=== PATIENT | female | born 1945 | race Caucasian/White ===

== ENCOUNTER 2025-09-04 22:44 | Inpatient (IN) ==
[2025-09-04 23:31] LABS: Hematocrit (blood only) 26.7 % (37.0-47.0); Hemoglobin 8.0 g/dl (12.0-16.0); Immature Granulocytes # (auto) 0.14 K/uL (0.01-0.20); Immature Granulocytes % (auto) 0.9 %; Mean Corpuscular Hemoglobin 25.2 pg (25.0-34.0); Mean Corpuscular Volume 84.2 fL (80.0-100.0); Platelet Count 522 K/uL (130-400); RDW Standard Deviation 50.3 fL (36.4-46.3); Red Blood Count 3.17 M/uL (4.20-5.40); White Blood Count 14.76 K/ul (4.8-10.8)
[2025-09-04 23:33] LABS: iSTAT Art Bld Gas Base Excess -16.0 mmol/L (-9-1.8); iSTAT Art Bld Gas pCO2 Correct 19 mmHg (35-46); iSTAT Art Bld Gas pH Corrected 7.326 (7.35-7.45); iSTAT Arterial Blood Gas pO2 C 366
--- NOTE | 2025-09-04 23:37 | XRay Report ---
Exam(s): XR CXR 1 VIEW EXAM: XR Chest, 1 View CLINICAL HISTORY: sharon. TECHNIQUE: Frontal view of the chest. COMPARISON: No relevant prior studies available. FINDINGS: Lungs: Postsurgical changes with suture material in the right mid lung zone. Pleural space: Trace blunting of the bilateral costophrenic margins. Diffuse senescent interstitial changes noted. The pulmonary vasculature appears somewhat equalized. No definite radiographic evidence for florid CHF. There is minimal blunting of both costophrenic margins. No pneumothorax. Heart: The cardiac silhouette is within normal limits, accounting for portable technique. Mediastinum: No significant abnormality identified. The trachea is midline. Bones/joints: Intact sternal hardware. No acute osseous abnormality. IMPRESSION: Trace blunting of the bilateral costophrenic margins. Diffuse senescent interstitial changes noted. The pulmonary vasculature appears somewhat equalized. No definite radiographic evidence for florid CHF. Trace bilateral pleural effusions. Electronically signed by: Mac Quintanilla MD 09/04/25 23:36 PM
[2025-09-04] MEDS: NOREPINEPHRINE/D5W 4 MG/250 ML IV ONE (23:40)
[2025-09-04] MEDS: DEXTROSE 10% 250 ML BAG IV ONE (23:41)
[2025-09-04] MEDS: SODIUM CHLORIDE 0.9% 500 ML IV ONE (23:41)
[2025-09-04] MEDS: CALCIUM GLUCONATE 1000 MG/60 ML NSS IV ONE (23:41)
[2025-09-04] MEDS: SODIUM BICARB 8.4% INJ 50 MEQ/50 ML SYR IV ONE (23:41)
[2025-09-04] MEDS: ALBUT/IPRATROP 3MG/0.5MG NEB 3 ML VIAL ONE (23:41)
[2025-09-04] MEDS: ATROPINE SULFATE 0.1 MG/ML 10ML SYR IV ONE (23:42)
[2025-09-05] MEDS ORDERED: STAT IV/IM STA (00:06)
[2025-09-05] MEDS: DEXTROSE 10% 250 ML BAG IV STA (00:07)
[2025-09-05] MEDS: SODIUM BICARB 8.4% INJ 50 MEQ/50 ML SYR IV ONE (00:13)
[2025-09-05] MEDS: SODIUM CHLORIDE 0.9% 1,000 ML IV ONE ×2 (00:14→00:25)
[2025-09-05] MEDS: CALCIUM CHLORIDE 10% 1,000 MG in DEXTROSE 5% 50 ML IV STA (00:22)
[2025-09-05 00:23] LABS: Alanine Aminotransferase 27.0 U/L (7-52); Albumin Globulin Ratio 0.8 (0.9-2); Albumin Level 3.0 gm/dl (3.4-5.0); Alkaline Phosphatase 310.0 U/L (34-104); Anion Gap 23.0 (3-11); Bilirubin,Total 0.5 mg/dl (0.2-1.0); Blood Urea Nitrogen 75.0 mg/dl (6-23); Calcium 8.7 mg/dl (8.6-10.3); Carbon Dioxide 12.0 mmol/L (21-32); Chloride 99.0 mmol/L (98-107); Creatinine Clr Calc Pharmacy 13.3 ml/min; Globulin 3.9 gm/dl (2.5-4.0); Glucose 76.0 mg/dl (70-99(Fasting)); Magnesium 4.6 mg/dl (1.7-2.4); Potassium 6.4 mmol/L (3.5-5.1); Sodium 134.0 mmol/L (136-145); Thyroid Stimulating Hormone 5.501 uIu/ml (0.300-4.500); Total Protein 6.9 gm/dl (6.0-8.3)
[2025-09-05] MEDS: SODIUM BICARB 8.4% INJ 50 MEQ/50 ML SYR IV STA (00:24)
[2025-09-05] MEDS: PLASMA-LYTE A 1,000 ML IV ONE (00:28)
--- NOTE | 2025-09-05 00:48 | History & Physical Report ---
Date of Service September 05, 2025 Assessment & Plan (1) Shock: (2) Bradycardia: (3) Hypothermia: (4) Elevated troponin: (5) Metabolic acidosis: Plan The patient is a 80-year-old female who follows with physicians at [facility]. 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 Records have been requested through [facility], and will be addressed when they arrive. The patient herself was not able to contribute to HPI or review of systems due to acute physical and mental state. The patient presented to the emergency department with altered mentation, severe bradycardia, hypothermia, hypoglycemia, several electrolyte disturbances, metabolic acidosis, and COPD exacerbation. Her heart rate was in the 20s upon arrival, which point she was immediately externally paced and started on Levophed infusion by the ED, while waiting for laboratory evaluation to return. Blood pressure upon arrival was 70s/50s, and temperature was 31.7. Patient was placed on Nunu hugger. Correction of laboratory abnormalities left to the ICU consult team saw the filippo ent in the ED. She was transcutaneous paced with capture at 40 N/A, at a rate of 70. Laboratories revealed a bicarb of 12, potassium 6.4, gap 23, magnesium 4.6. She was given 1 L crystalloid, 1 amp of bicarb, 1 g calcium gluconate, 1 g of calcium chloride. She was given 250 mL of D10. She received an additional amp of bicarbonate 50 mill equivalents 8.4%, then started on a bicarb infusion and dextrose at 175 mL/h. She received another liter of normal saline. Patient had improvement in heart rate to the 80-90s, and systolic blood pressure up to 120. She was transferred to the ICU with further treatment to be performed there. Shock/bradycardia/CAD/AAA/AVR/hyperlipidemia/hypertension/elevated troponin- Admitting to the intensive care unit. Follow serial cardiac enzymes, cardiac rhythm monitoring and order a complete echocardiogram Patient required temporary external pacing while in the ED, along with addition of Levophed. External pacing was able to be discontinued, and patient was continued on Levophed in addition to adjustment of IV fluids, and electrolyte replacements as noted Patient will be n.p.o. until improved enough to be able to take oral medications. Further adjustments in medications per the ICU team. Serial CBC with differential, chemistry profile, magnesium level and troponin levels Pantoprazole 40 mg IV daily DuoNebs every 2 hours as needed Hyperkalemia/renal insufficiency- Continue treatment per ICU team following serial BMP and magnesium levels Hypothermia- Continue Nunu hugger per protocol History of Present Illness Chief Complaint: The patient presented to the emergency department with altered mentation, severe bradycardia, hypothermia, hypoglycemia, several electrolyte disturbances, metabolic acidosis, and COPD exacerbation. Her heart rate was in the 20s upon arrival, which point she was immediately externally paced and started on Levophed infusion by the ED, while waiting for laboratory evaluation to return. Primary Care Provider: Dong Parks MD The patient is a 80-year-old female who follows with physicians at [facility]. 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 Records have been requested through [facility], and will be addressed when they arrive. The patient herself was not able to contribute to HPI or review of systems due to acute physical and mental state. The patient presented to the emergency department with altered mentation, severe bradycardia, hypothermia, hypoglycemia, several electrolyte disturbances, metabolic acidosis, and COPD exacerbation. Her heart rate was in the 20s upon arrival, which point she was immediately externally paced and started on Levophed infusion by the ED, while waiting for laboratory evaluation to return. Blood pressure upon arrival was 70s/50s, and temperature was 31.7. Patient was placed on Nunu hugger. Correction of laboratory abnormalities left to the ICU consult team saw the patient in the ED. She was transcutaneous paced with capture at 40 N/A, at a rate of 70. Laboratories revealed a bicarb of 12, potassium 6.4, gap 23, magnesium 4.6. She was given 1 L crystalloid, 1 amp of bicarb, 1 g calcium gluconate, 1 g of calcium chloride. She was given 250 mL of D10. She received an additional amp of bicarbonate 50 mill equivalents 8.4%, then started on a bicarb infusion and dextrose at 175 mL/h. She received another liter of normal saline. Patient had improvement in heart rate to the 80-90s, and systolic blood pressure up to 120. She was transferred to the ICU with further treatment to be performed there. Allergies Allergy/AdvReac Type Severity Reaction Status Date / Time No Known Allergies Allergy Unverified 09/05/25 00:07 Home Medications Medication Instructions Recorded Confirmed Type acetaminophen 650 mg 1,300 mg PO QAM 09/05/25 09/05/25 History tablet,extended release albuterol sulfate 90 mcg/actuation 2 puff inhalation Q4H PRN 09/05/25 09/05/25 History aerosol inhaler (Ventolin HFA) Shortness Of Breath Or Wheezing amlodipine 10 mg tablet 10 mg PO DAILY 09/05/25 09/05/25 History aspirin 81 mg tablet 81 mg PO DAILY 09/05/25 09/05/25 History atorvastatin 10 mg tablet 10 mg PO DAILY 09/05/25 09/05/25 History cholecalciferol (vitamin D3) 25 25 mcg PO DAILY 09/05/25 09/05/25 History mcg (1,000 unit) tablet clonazepam 0.5 mg PO HS 09/05/25 09/05/25 History clonazepam 0.5 mg tablet 0.5 mg PO HS 09/05/25 09/05/25 History docusate sodium 100 mg capsule 100 mg PO BID 09/05/25 09/05/25 History ondansetron HCl 4 mg tablet 0.4 mg PO Q8H PRN Nausea And 09/05/25 09/05/25 History Vomiting varenicline tartrate 0.5 mg tablet 0.5 mg PO DIRECTED 09/05/25 09/05/25 History Past Med/Surg History Problem List (Updated 09/05/25 @ 04:57 by Ajay Vaughn MD) Elevated troponin Hypoglycemia Bradycardia Hypothermia Metabolic acidosis Electrolyte abnormality Shock Medical History (Updated 09/05/25 @ 04:57 by Ajay Vaughn MD) Thyroid nodule HLD (hyperlipidemia) DMII (diabetes mellitus, type 2) Lung cancer HTN (hypertension) CKD stage 3b, GFR 30-44 ml/min COPD (chronic obstructive pulmonary disease) Surgical History (Updated 09/05/25 @ 03:47 by ISABEL La) History of AAA (abdominal aortic aneurysm) repair Aortic valve replaced Social History Smoking Status: Current every day smoker Tobacco Type: Cigarettes Cigarettes Per Day: 3-4 cigarettes per day; Hx Alcohol Use: No Hx Substance Use: No Preferred Language: Dominican Communication Ability: Effective Honing Machine Set Up Operator Required: No Beliefs That Will Affect Care: None Current Living Situation: Spouse Feels Safe at Home: Yes Assistive Devices: Denture - Upper, Denture - Lower and Glasses Review of Systems Review of Systems: Review of systems and HPI provided by family. Patient unable to contribute significantly due to altered mental state upon arrival. However, as she responded to interventions, she was able to contribute as noted. Physical Exam Physical Exam: The patient is initially confused and limited response. Appears thin with protein calorie malnutrition, normocephalic and atraumatic, lying in bed and in no acute distress. HEENT--PERRL, EOMI, mucous membranes and oropharynx moderately dry. Neck--supple. No JVD. No bruits. Thyroid normal, trachea midline, no adenopath y. Heart--bradycardic. No murmurs, rubs or gallops. Lungs--diminished breath sounds, no respiratory distress, no accessory muscle use. Abdomen--normal bowel sounds and soft. Nontender Dermatologic--skin is dry Neurologic--cranial nerves II through XII grossly intact. Rheumatologic--limited exam Psychiatric--lethargic and initially confused Results & Data Results & Data Vital Signs (Past 12 Hours) Vital Signs Temp Pulse Pulse Resp BP BP Pulse Ox 09/05/25 00:37 34.0 C L 70 19 134/31 L 09/05/25 00:31 123/33 L 09/05/25 00:29 70 20 95 09/05/25 00:26 130/34 L 09/05/25 00:26 130/34 L 09/05/25 00:23 70 19 09/05/25 00:21 127/33 L 09/05/25 00:21 127/33 L 09/05/25 00:11 70 20 92/46 L 90 09/05/25 00:06 70 16 92/50 L 09/04/25 23:44 69 24 98/52 L 09/04/25 23:36 70 25 H 110/52 L 09/04/25 23:35 31.7 C L 09/04/25 23:24 70 26 H 92/50 L 09/04/25 23:18 70 09/04/25 23:15 70 24 O2 Del Method O2 Flow Rate 09/05/25 00:37 Non-rebreather 15 09/05/25 00:31 09/05/25 00:29 09/05/25 00:26 09/05/25 00:26 09/05/25 00:23 09/05/25 00:21 09/05/25 00:21 09/05/25 00:11 09/05/25 00:06 09/04/25 23:44 09/04/25 23:36 09/04/25 23:35 09/04/25 23:24 09/04/25 23:18 09/04/25 23:15 Laboratory Results Laboratory Results WBC 14.76 K/ul (4.8-10.8) H 09/04/25 23:00 RBC 3.17 M/uL (4.20-5.40) L 09/04/25 23:00 Hgb 8.0 g/dl (12.0-16.0) L 09/04/25 23:00 POC Hgb 9.5 g/dl (12.0-16.0) L 09/04/25 23:53 Hct 26.7 % (37.0-47.0) L 09/04/25 23:00 POC Hct 28 % (37-47) L 09/04/25 23:53 MCV 84.2 fL (80.0-100.0) 09/04/25 23:00 MCH 25.2 pg (25.0-34.0) 09/04/25 23:00 MCHC 30.0 g/dL (32.0-36.0) L 09/04/25 23:00 RDW Std Deviation 50.3 fL (36.4-46.3) H 09/04/25 23:00 RDW Coeff of Amara 16.9 % (11.5-14.5) H 09/04/25 23:00 Plt Count 522 K/uL (130-400) H 09/04/25 23:00 MPV 9.8 fL (9.4-12.4) 09/04/25 23:00 Immature Gran % (Auto) 0.9 % 09/04/25 23:00 Neut % (Auto) 81.8 % 09/04/25 23:00 Lymph % (Auto) 10.9 % 09/04/25 23:00 Kidder % (Auto) 6.2 % 09/04/25 23:00 Eos % (Auto) 0.1 % 09/04/25 23:00 Baso % (Auto) 0.1 % 09/04/25 23:00 Neut # (Auto) 12.07 K/uL (1.40-6.50) H 09/04/25 23:00 Lymph # (Auto) 1.61 K/uL (1.20-3.40) 09/04/25 23:00 Kidder # (Auto) 0.91 K/uL (0.11-0.59) H 09/04/25 23:00 Eos # (Auto) 0.01 K/uL (0.00-0.50) 09/04/25 23:00 Baso # (Auto) 0.02 K/uL (0.00-0.20) 09/04/25 23:00 Immature Gran # (Auto) 0.14 K/uL (0.01-0.20) 09/04/25 23:00 Absolute Nucleated RBC 0.05 K/uL (0.00-0.12) 09/04/25 23:00 Nucleated RBC % (auto) 0.3 % 09/04/25 23:00 Specimen Type Arterial 09/04/25: Sample Site L Radial 09/04/25 23:19 POC pH 7.33 (7.35-7.45) L 09/04/25 23:19 POC pCO2 19 mmHg (35-46) L 09/04/25 23:19 POC pO2 366 mmHg (80-95) H 09/04/25 23:19 POC HCO3 10 mmol/L (19-24) L 09/04/25 23:19 POC Total CO2 10 mmol/L (24-31) L 09/04/25 23:19 POC Base Excess -16.0 mmol/L (-9-1.8) L 09/04/25 23:19 ABG pH (Temp Correct) 7.326 (7.35-7.45) L 09/04/25 23:19 ABG pCO2 (Temp Corrct 19 mmHg (35-46) L 09/04/25 23:19 POC ABG pO2 at Pt Temp 366 09/04/25 23:19 POC ABG O2 Sat 100.0 % (90-95) H 09/04/25 23:19 David Test Pass 09/04/25 23:19 VBG pH 7.35 (7.36-7.41) L 09/05/25 02:19 VBG pCO2 27 mmHg (38-50) L 09/05/25 02:19 VBG pO2 39 mmHg 09/05/25 02:19 VBG HCO3 15 mmol/L 09/05/25 02:19 VBG O2 Saturation 62.4 % 09/05/25 02:19 VBG Base Excess -9.1 mEq/L 09/05/25 02:19 O2 Delivery Device NonRb Mask 09/04/25 23:19 POC FiO2 100 % 09/04/25 23:19 POC Sodium 132 mmol/L (135-144) L 09/04/25 23:53 Sodium 135 mmol/L (136-145) L 09/05/25 02:19 POC Potassium 6.4 mmol/L (3.3-5.0) H* 09/04/25 23:53 Potassium 4.9 mmol/L (3.5-5.1) D 09/05/25 02:19 POC Chloride 106 mmol/L (101-112) 09/04/25 23:53 Chloride 101 mmol/L (98-107) 09/05/25 02:19 Carbon Dioxide 16 mmol/L (21-32) L 09/05/25 02:19 POC Total CO2 14 mmol/L (24-31) L 09/04/25 23:53 Anion Gap 18 (3-11) H 09/05/25 02:19 POC Anion Gap 20.0 mmol/L (16-25) 09/04/25 23:53 POC BUN 69 mg/dl (7-18) H 09/04/25 23:53 BUN 64 mg/dl (6-23) H 09/05/25 02:19 Creatinine 2.28 mg/dl (0.6-1.2) H 09/05/25 02:19 POC Creatinine 2.5 mg/dl (0.6-1.3) H 09/04/25 23:53 Est Cr Clr Drug Dosing 14.9 ml/min 09/05/25 02:19 eGFR 21.05 09/05/25 02:19 BUN/Creatinine Ratio 28.1 (10-20) H 09/05/25 02:19 Glucose 250 mg/dl (70-99(Fasting)) H 09/05/25 02:19 POC Glucose 214 mg/dl (70-99) H 09/05/25 01:05 POC Glucose (other) 92 mg/dl (70-99) 09/04/25 23:53 Lactate 10.2 mmol/L (0.4-2.0) H* 09/05/25 02:19 Calcium 8.3 mg/dl (8.6-10.3) L 09/05/25 02:19 POC Ioniz Calcium Raymond 0.95 mmol/l (1.12-1.32) L 09/04/25 23:53 Ionized Calcium 1.05 mmol/L (1.12-1.32) L 09/05/25 04:42 Magnesium 4.6 mg/dl (1.7-2.4) H 09/04/25 23:00 Iron 24 mcg/dl (35-150) L 09/05/25 03:18 TIBC 265 mcg/dl (250-450) 09/05/25 03:18 Transferrin 189 mg/dl (200-360) L 09/05/25 03:18 Transferrin % Sat 9 % (15-50) L 09/05/25 03:18 Total Bilirubin 0.5 mg/dl (0.2-1.0) 09/04/25 23:00 AST 34 U/L (13-39) 09/04/25 23:00 ALT 27 U/L (7-52) 09/04/25 23:00 Alkaline Phosphatase 310 U/L (34-104) H 09/04/25 23:00 Troponin I High Sens 151.6 pg/ml (0-14) H* 09/04/25 23:00 Total Protein 6.9 gm/dl (6.0-8.3) 09/04/25 23:00 Albumin 3.0 gm/dl (3.4-5.0) L 09/04/25 23:00 Globulin 3.9 gm/dl (2.5-4.0) 09/04/25 23:00 Albumin/Globulin Ratio 0.8 (0.9-2) L 09/04/25 23:00 TSH 5.501 uIu/ml (0.300-4.500) H 09/04/25 23:00 Free T4 1.62 ng/dl (0.61-1.60) H 09/04/25 23:00 Random Cortisol 49.35 mcg/dl 09/04/25 23:11 Urine Color Yellow 09/05/25 01:45 Urine Appearance Cloudy (Clear) A 09/05/25 01:45 Urine pH 5.0 (4.5-7.5) 09/05/25 01:45 Ur Specific [place] 1.027 (1.000-1.030) 09/05/25 01:45 Urine Protein 1+ (Negative) H 09/05/25 01:45 Urine Glucose (UA) Negative (Negative) 09/05/25 01:45 Urine Ketones Trace (Negative) H 09/05/25 01:45 Urine Blood Negative (Negative) 09/05/25 01:45 Urine Nitrite Negative (Negative) 09/05/25 01:45 Urine Bilirubin Negative (Negative) 09/05/25 01:45 Urine Urobilinogen Negative (Negative) 09/05/25 01:45 Ur Leukocyte Esterase Negative (Negative) 09/05/25 01:45 Urine WBC (Auto) 0-5 /hpf (0-5) 09/05/25 01:45 Urine RBC (Auto) 6-10 /hpf (0-2) H 09/05/25 01:45 U Hyaline Cast (Auto) >20 /lpf (0-2) H 09/05/25 01:45 U Epithel Cells (Auto) 3-5 /hpf (0-2) H 09/05/25 01:45 Urine Bacteria (Auto) None Seen (None Seen) 09/05/25 01:45 Nasal Screen MRSA (PCR) Positive (Negative) A 09/05/25 01:30 Blood Type A Negative 09/05/25 02:19 Antibody Screen NEGATIVE 09/05/25 02:19 Impressions Chest X-Ray 09/04/25 23:00 Exam(s): XR CXR 1 VIEW EXAM: XR Chest, 1 View CLINICAL HISTORY: sharon. TECHNIQUE: Frontal view of the chest. COMPARISON: No relevant prior studies available. FINDINGS: Lungs: Postsurgical changes with suture material in the right mid lung zone. Pleural space: Trace blunting of the bilateral costophrenic margins. Diffuse senescent interstitial changes noted. The pulmonary vasculature appears somewhat equalized. No definite radiographic evidence for florid CHF. There is minimal blunting of both costophrenic margins. No pneumothorax. Heart: The cardiac silhouette is within normal limits, accounting for portable technique. Mediastinum: No significant abnormality identified. The trachea is midline. Bones/joints: Intact sternal hardware. No acute osseous abnormality. IMPRESSION: Trace blunting of the bilateral costophrenic margins. Diffuse senescent interstitial changes noted. The pulmonary vasculature appears somewhat equalized. No definite radiographic evidence for florid CHF. Trace bilateral pleural effusions. Electronically signed by: Mac Quintanilla MD 09/04/25 23:36 PM Code Status & VTE Plan Code Status Full code VTE Prophylaxis Plan VTE Prophylaxis will be ordered: Yes PG Care Time/CCT Total # of Minutes Spent Total Time Spent with Patient: Total time spent is greater than 50% in coordination of care (as documented) at patient's floor/unit and/or counseling patient: 52 minutes Coding Level of Care Code 60234 INT INP/OBS CARE 3/75MIN Diagnoses Shock R57.9 Bradycardia R00.1 Hypothermia T68.XXXA Elevated troponin R79.89 Metabolic acidosis E87.20
[2025-09-05] MEDS: SODIUM BICARBONATE 8.4% 150 MEQ in DEXTROSE 5% 1,000 ML IV SCH (00:50)
[2025-09-05] MEDS: PANTOprazole 40 MG/10 ML SYR IV ONE (00:50)
--- NOTE | 2025-09-05 01:19 | Critical Care Consultation ---
Date of Consultation September 05, 2025 Assessment & Plan (1) Shock: (2) Bradycardia: (3) Hypothermia: (4) Hypoglycemia: (5) CKD stage 3b, GFR 30-44 ml/min: (6) Electrolyte abnormality: (7) Metabolic acidosis: (8) COPD (chronic obstructive pulmonary disease): Plan Reason Critically Ill: 80 YOF presents bradycardic, hypothermic with multiple electrolyte abnormalities and AGAP metabolic acidosis. She is requiring TCP and Vasopressor support at this time. Neuro - Metabolic encephalopathy CAM ICU: NEGATIVE - Encephalopathy has improved with treatment of her acidosis and hypothermia. She is now briskly awake and conversant. No focal deficits noted - Continue with supportive care Cardiac - Shock, bradycardia, elevated HsCTNI, HX: CAD, AAA, AVR, HLD, HTN - Shock multifactorial at this time - with primary being bradycardia and hypovolemia from frequent diarrhea with loss of free water and poor oral intake - She has received 2.5L Crystalloid - continue with isotonic bicarb infusion at this time for volume as well as treatment for her metabolic acidosis and hyperkalemia - Can't exclude infective cause at this time- obtain blood cultures and UA, CXR is without any opacities concerning for infective cause - Repeat end organ biomarkers, as well as initial lactate - Lactate 10.2- follow up in 2 hours with continued resuscitation - IVC appears mildly compressible at this time- provide another 500ml of plasmalyte - Bradycardia- HR in 30s underlying- no complaints of chest pain- bedside POCUS shows good ventricular contraction with paced beats, no evidence of tamponade or effusion - Likely secondary to multiple electrolyte disturbances to include hyperkalemia, hypermag, and hypocalcemia as well as hypoglycemia - Correct these as well as her bicarb with hopes to be able to decrease her TCP need - cardiology consultation appreciated - She is not on AIDEN or ARB or BB at home so unlikely BRASH type picture - Elevated HsCTNI- likely demand in setting of shock and TCP- no complaints of chest pain or anginal equivalent- trend - once stabilized obtain ECG with pacer paused if able - ECHO in am Respiratory - No acute need- HX previous smoker, COPD, lung cancer with RML resection-squamous cell - Continue with ADAN - O2 sats 88-92% GI - Diarrhea - Dairrhea in setting of MOM intake - she is currently not tender, no blood reported in stools- she has not had any diarrhea since arrival - once stabilized- consider need for advanced imaging to eval for any ischemia or obstruction- however abdominal exam is soft and nontender without rebound, no free air noted below diaphragm on CXR - PPI RENAL/LYTES - BRITTON on CKD III B, Multiple electrolyte disturbances, AGAP metabolic acidosis compensated, - Continue to defend MAP of 65 - with vasopressor support as well as volume resuscitation - Hyperkalemia- received calcium, bicarb, and starting to make urine- correct acidosis - if remains elevated - can consider adding binding agent - HyperMag- mild at 4.6- no nuerological changes and well below toxic level- hold further replacement - HypoCalcemia- repleted with CA gluconate and CACL in ER- follow - AGAP Metabolic Acidosis- Delta AG and Delta bicarb- about equal- pure AGAP Acidosis - with ketones in urine- likely ketosis with elevated BUN- lactate is pending - No acute need - Díaz to gravity continue while on vasopressors ENDO - Hypoglycemia - Noted on arrival to [facility] required to D10 boluses- now resolved and hyperglycemic- will add insulin infusion standard to get <180mg/dl- likely to resolve when bicarb infusion is completed and as above likely component of ketos is - TSH normal HEME - Anemia, thrombocytosis, HX: Lung cancer - likely related to poor nutritional intake and CKD- will check basic anemia labs in am - no external sources of blood loss noted - no GI loss apprecaited - Thrombocytosis likely secondary to anemia - - Health screenings reportedly up to date by patient and daughter- yearly CT scans of chest and AAA, Colonoscopy ~2 years ago with bowel resection secondary to polyps, not sure if she has had EGD. ID - Can't exclude sepsis as a cause with elevated WBC, hypothermia, shock, elevated lactate, and organ dysfunction - Will place on Zosyn and Daptomycin - MRSA nares positive- no concern for pulm source, no definite soft tissue source - Blood culture x2 pending - UA negative - CXR negative LINES/IV ACCESS - PIV x3, díaz Continue use of these lines - Consent obtained as delegated to me by Dr. Kline for Jeanette and CVL if needed pending clinical course DVT PROPHYLAXIS - SCDs DISPO: ICU while requiring TCP and vasopressor support- continue with supportive care and hope to be able to wean off pacer I have personally spent 65 minutes of critical care time in the direct management of this patient. This is a life/limb threatening event. This includes time spent evaluating patient, direct bedside care, chart review, placing orders, interpretation of diagnostic studies, discussion with consultants, patient, and family members, as well as other required patient management activities. This time is exclusive of all separately billable procedures, and separate from and in addition to any other critical care service time. Thank you for allowing us to participate in the care of this patient. Please refer to my attending physician's documentation for any further recommendations. Supervising Physician Co-Signing Physician Notes I have personally evaluated and examined this patient. I agree with assessment and plan of Monico HALL. Clinical update: 9 AM patient continues to improve increasing urine output, blood pressure adequate, bradycardia on monitor. Initial tick peripheral smear negative, DNA probes pending, decreasing lactic acidosis, significant structural lung disease, history of upper respiratory tract infection symptoms approximately 2 weeks ago, will transition to empiric Levaquin which will also cover most urinary pathogens for acute renal failure,'s no oxygen requirement doubtful to represent MRSA pneumonia discontinuing other antibiotics. History of Present Illness Reason for Consultation: Shock, Bradycardia, Multiple electrolyte disturbances Requesting Physician: Ajay Vaughn MD Attending Physician: Ajay Vaughn MD History of Present Illness 80 YOF with no records for review in our system who follows at [facility]. 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 Patient was brought in via EMS from home secondary to unresponsiveness and weakness. Patient was noted to be bradycardic, hypothermic on arrival by EMS. She was given 1mg of Atropine without adequate response it appears. She arrived to the ER with HR in the teens, BP 70s/50s reported, and hypothermic to 31.7. Family reports that she has been not feeling well for the past week with weakness, but also with months of not eating much because of early satiety. She was told her magnesium was low, and started to take MOM frequently, this appears to have led to the last 2 days of large episodes of diarrhea, that reports 15 times or more per day. She has not been eating or drinking over the past 2 days either. She was initiated with TCP and captured with 40MA and rate of 70, initiated on Levophed and placed on NRB. Patient had routine labs performed to include ABG, BG, HsCTNI. Labs returned with multiple electrolyte disturbances with HOC3 12, K 6.4, Gap 23, LEGAL INVESTIGATOR 2.55, MG 4.6and iCA 0.85. She was given 1L crystalloid, 1amp HCO3 and 1GM CA gluconate and 250ml of D10 initially. ICU was consulted for continued hemodynamic monitoring and support. Patient was evaluated in the ER remains TCP with underlying rate of 30s. She was given another amp of BICARB 50meq 8.4%, and bicarb infusion in dextrose started at 175ml/hr as well as another liter of 0.9% saline given. Patient has small amount of urine in Díaz tubing and her mentation has improved with her temperature increase as well as her blood pressure increasing. Patient will be admitted to the ICU for continued resuscitation, monitoring of hemodynamics, aci d base correction, and management of electrolytes. CODE: FULL Allergies Allergy/AdvReac Type Severity Reaction Status Date / Time No Known Allergies Allergy Unverified 09/05/25 00:07 Home Medications Medication Instructions Recorded Confirmed Type acetaminophen 650 mg 1,300 mg PO QAM 09/05/25 09/05/25 History tablet,extended release albuterol sulfate 90 mcg/actuation 2 puff inhalation Q4H PRN 09/05/25 09/05/25 History aerosol inhaler (Ventolin HFA) Shortness Of Breath Or Wheezing amlodipine 10 mg tablet 10 mg PO DAILY 09/05/25 09/05/25 History aspirin 81 mg tablet 81 mg PO DAILY 09/05/25 09/05/25 History atorvastatin 10 mg tablet 10 mg PO DAILY 09/05/25 09/05/25 History cholecalciferol (vitamin D3) 25 25 mcg PO DAILY 09/05/25 09/05/25 History mcg (1,000 unit) tablet clonazepam 0.5 mg PO HS 09/05/25 09/05/25 History clonazepam 0.5 mg tablet 0.5 mg PO HS 09/05/25 09/05/25 History docusate sodium 100 mg capsule 100 mg PO BID 09/05/25 09/05/25 History ondansetron HCl 4 mg tablet 0.4 mg PO Q8H PRN Nausea And 09/05/25 09/05/25 History Vomiting varenicline tartrate 0.5 mg tablet 0.5 mg PO DIRECTED 09/05/25 09/05/25 History Patient History Medical History (Updated 09/05/25 @ 04:57 by Ajay Vaughn MD) Thyroid nodule HLD (hyperlipidemia) DMII (diabetes mellitus, type 2) Lung cancer HTN (hypertension) CKD stage 3b, GFR 30-44 ml/min COPD (chronic obstructive pulmonary disease) Surgical History (Updated 09/05/25 @ 03:47 by ISABEL La) History of AAA (abdominal aortic aneurysm) repair Aortic valve replaced Social History Smoking Status: Current every day smoker Tobacco Type: Cigarettes Cigarettes Per Day: 3-4 cigarettes per day; Hx Alcohol Use: No Hx Substance Use: No Preferred Language: Serbian Communication Ability: Effective Scoop Operator Required: No Beliefs That Will Affect Care: None Current Living Situation: Spouse Other Information That Helps Us Care for You: No Feels Safe at Home: Yes Safety Concerns: Feels Safe At This Time Assistive Devices: Denture - Upper, Denture - Lower and Glasses Review of Systems Review of Systems: as per HPI- limited information from at bedside Physical Exam Physical Exam: PHYSICAL EXAM: General: awake, alert, no apparent distress Head: Normocephalic, atraumatic ENT: PERRL, EOMI, no pharyngeal exudate, mucous membranes dry Neuro: AAO x 2, speech clear and appropriate, strength intact bilaterally 5/5, sensation intact and equal all extremities Chest: equal rise and fall of the chest, no accessory muscle use, inspiratory and expiratory wheeze throughout bilateral Cardiac: Regular rate and rhythm, telemetry reviewed- sinus sharon underlying- currently Vpaced at 70, skin cool and dry, cap refill <3 seconds, peripheral pulses +2 no JVD, no murmur, no JVD, 2+ edema to feet and ankles GI: NABS x 4 quadrants, soft, nontender to palpation, no rebound, guarding or tenderness : Spontaneously voiding, Díaz in place minimal urine Psych: Normal mood and affect Results & Data Results & Data Vital Signs (Past 12 Hours) Vital Signs Temp Pulse Pulse Resp BP BP Pulse Ox 09/05/25 00:37 34.0 C L 70 19 134/31 L 09/05/25 00:31 123/33 L 09/05/25 00:29 70 20 95 09/05/25 00:26 130/34 L 09/05/25 00:26 130/34 L 09/05/25 00:23 70 19 09/05/25 00:21 127/33 L 09/05/25 00:21 127/33 L 09/05/25 00:11 70 20 92/46 L 90 09/05/25 00:06 70 16 92/50 L 09/04/25 23:44 69 24 98/52 L 09/04/25 23:36 70 25 H 110/52 L 09/04/25 23:35 31.7 C L 09/04/25 23:24 70 26 H 92/50 L 09/04/25 23:18 70 09/04/25 23:15 70 24 O2 Del Method O2 Flow Rate 09/05/25 00:37 Non-rebreather 15 09/05/25 00:31 09/05/25 00:29 09/05/25 00:26 09/05/25 00:26 09/05/25 00:23 09/05/25 00:21 09/05/25 00:21 09/05/25 00:11 09/05/25 00:06 09/04/25 23:44 09/04/25 23:36 09/04/25 23:35 09/04/25 23:24 09/04/25 23:18 09/04/25 23:15 Laboratory Results Abnormal lab results 09/04/25 09/04/25 09/04/25 Range/Units 23:00 23:04 23:19 WBC 14.76 H (4.8-10.8) K/ul RBC 3.17 L (4.20-5.40) M/uL Hgb 8.0 L (12.0-16.0) g/dl POC Hgb 9.2 L 7.5 L (12.0-16.0) g/dl Hct 26.7 L (37.0-47.0) % POC Hct 27 L 22 L (37-47) % MCHC 30.0 L (32.0-36.0) g/dL RDW Std Deviation 50.3 H (36.4-46.3) fL RDW Coeff of Amara 16.9 H (11.5-14.5) % Plt Count 522 H (130-400) K/uL Neut # (Auto) 12.07 H (1.40-6.50) K/uL [place] # (Auto) 0.91 H (0.11-0.59) K/uL POC pH 7.33 L (7.35-7.45) POC pCO2 19 L (35-46) mmHg POC pO2 366 H (80-95) mmHg POC HCO3 10 L (19-24) mmol/L POC Base Excess -16.0 L (-9-1.8) mmol/L ABG pH (Temp Correct) 7.326 L (7.35-7.45) ABG pCO2 (Temp Corrct 19 L (35-46) mmHg POC ABG O2 Sat 100.0 H (90-95) % POC Sodium 130 L 132 L (135-144) mmol/L Sodium 134 L (136-145) mmol/L POC Potassium 6.8 H* 5.9 H (3.3-5.0) mmol/L Potassium 6.4 H* (3.5-5.1) mmol/L Carbon Dioxide 12 L (21-32) mmol/L POC Total CO2 11 L 10 L (24-31) mmol/L Anion Gap 23 H (3-11) POC BUN 74 H (7-18) mg/dl BUN 75 H (6-23) mg/dl Creatinine 2.55 H (0.6-1.2) mg/dl POC Creatinine 2.8 H (0.6-1.3) mg/dl BUN/Creatinine Ratio 29.4 H (10-20) POC Glucose (70-99) mg/dl POC Ioniz Calcium Raymond 0.85 L (1.12-1.32) mmol/l Magnesium 4.6 H (1.7-2.4) mg/dl Alkaline Phosphatase 310 H (34-104) U/L Troponin I High Sens 151.6 H* (0-14) pg/ml Albumin 3.0 L (3.4-5.0) gm/dl Albumin/Globulin Ratio 0.8 L (0.9-2) TSH 5.501 H (0.300-4.500) uIu/ml Free T4 1.62 H (0.61-1.60) ng/dl 09/04/25 09/05/25 09/05/25 Range/Units 23:53 00:25 01:05 WBC (4.8-10.8) K/ul RBC (4.20-5.40) M/uL Hgb (12.0-16.0) g/dl POC Hgb 9.5 L (12.0-16.0) g/dl Hct (37.0-47.0) % POC Hct 28 L (37-47) % MCHC (32.0-36.0) g/dL RDW Std Deviation (36.4-46.3) fL RDW Coeff of Amara (11.5-14.5) % Plt Count (130-400) K/uL Neut # (Auto) (1.40-6.50) K/uL [place] # (Auto) (0.11-0.59) K/uL POC pH (7.35-7.45) POC pCO2 (35-46) mmHg POC pO2 (80-95) mmHg POC HCO3 (19-24) mmol/L POC Base Excess (-9-1.8) mmol/L ABG pH (Temp Correct) (7.35-7.45) ABG pCO2 (Temp Corrct (35-46) mmHg POC ABG O2 Sat (90-95) % POC Sodium 132 L (135-144) mmol/L Sodium (136-145) mmol/L POC Potassium 6.4 H* (3.3-5.0) mmol/L Potassium (3.5-5.1) mmol/L Carbon Dioxide (21-32) mmol/L POC Total CO2 14 L (24-31) mmol/L Anion Gap (3-11) POC BUN 69 H (7-18) mg/dl BUN (6-23) mg/dl Creatinine (0.6-1.2) mg/dl POC Creatinine 2.5 H (0.6-1.3) mg/dl BUN/Creatinine Ratio (10-20) POC Glucose 183 H 214 H (70-99) mg/dl POC Ioniz Calcium Raymond 0.95 L (1.12-1.32) mmol/l Magnesium (1.7-2.4) mg/dl Alkaline Phosphatase (34-104) U/L Troponin I High Sens (0-14) pg/ml Albumin (3.4-5.0) gm/dl Albumin/Globulin Ratio (0.9-2) TSH (0.300-4.500) uIu/ml Free T4 (0.61-1.60) ng/dl Diagnostic Findings Chest X-Ray 09/04/25 23:00 Exam(s): XR CXR 1 VIEW EXAM: XR Chest, 1 View CLINICAL HISTORY: sharon. TECHNIQUE: Frontal view of the chest. COMPARISON: No relevant prior studies available. FINDINGS: Lungs: Postsurgical changes with suture material in the right mid lung zone. Pleural space: Trace blunting of the bilateral costophrenic margins. Diffuse senescent interstitial changes noted. The pulmonary vasculature appears somewhat equalized. No definite radiographic evidence for florid CHF. There is minimal blunting of both costophrenic margins. No pneumothorax. Heart: The cardiac silhouette is within normal limits, accounting for portable technique. Mediastinum: No significant abnormality identified. The trachea is midline. Bones/joints: Intact sternal hardware. No acute osseous abnormality. IMPRESSION: Trace blunting of the bilateral costophrenic margins. Diffuse senescent interstitial changes noted. The pulmonary vasculature appears somewhat equalized. No definite radiographic evidence for florid CHF. Trace bilateral pleural effusions. Electronically signed by: Mac Quintanilla MD 09/04/25 23:36 PM Medications Administered Home Medications acetaminophen 650 mg tablet,extended release 1,300 mg PO QAM 09/05/25 [History Confirmed 09/05/25] albuterol sulfate 90 mcg/actuation aerosol inhaler (Ventolin HFA) 2 puff inhalation Q4H PRN Shortness Of Breath Or Wheezing 09/05/25 [History Confirmed 09/05/25] amlodipine 10 mg tablet 10 mg PO DAILY 09/05/25 [History Confirmed 09/05/25] aspirin 81 mg tablet 81 mg PO DAILY 09/05/25 [History Confirmed 09/05/25] atorvastatin 10 mg tablet 10 mg PO DAILY 09/05/25 [History Confirmed 09/05/25] cholecalciferol (vitamin D3) 25 mcg (1,000 unit) tablet 25 mcg PO DAILY 09/05/25 [History Confirmed 09/05/25] clonazepam 0.5 mg PO HS 09/05/25 [History Confirmed 09/05/25] clonazepam 0.5 mg tablet 0.5 mg PO HS 09/05/25 [History Confirmed 09/05/25] docusate sodium 100 mg capsule 100 mg PO BID 09/05/25 [History Confirmed 09/05/25] ondansetron HCl 4 mg tablet 0.4 mg PO Q8H PRN Nausea And Vomiting 09/05/25 [History Confirmed 09/05/25] varenicline tartrate 0.5 mg tablet 0.5 mg PO DIRECTED 09/05/25 [History Confirmed 09/05/25] Active Medications Albuterol (Albut/Ipratrop 3mg/0.5mg Neb 3 Ml Vial) 3 ml NEB Q2H PRN; Protocol PRN Reason: dyspnea Stop: 10/05/25 00:33 Docusate Sodium (Docusate Sodium 100 Mg Cap) 100 mg PO BID KRISTAN Stop: 10/05/25 08:59 Sodium Bicarbonate 150 meq/ (Dextrose) 1,150 mls @ 175 mls/hr IV .Q6H35M KRISTAN Stop: 09/08/25 00:14 Last Admin: 09/05/25 00:50 Dose: 175 mls/hr Pantoprazole Sodium (Protonix) 40 mg in 10 mls @ 5 mls/min IV DAILY KRISTAN Stop: 10/05/25 08:59 Miscellaneous (Icu Protocol For Hyperglycemia) 1 each N/A ACHS KRISTAN Stop: 09/07/25 07:29 Non-Formulary Medication (Aspirin) 81 mg PO DAILY KRISTAN Stop: 10/05/25 08:59 Vitamin D (Cholecalciferol 25 Mcg (1000 Units) Tab) 25 mcg PO DAILY KRISTAN Stop: 10/05/25 08:59 Coding Level of Care Code 58088 CRITICAL CARE 1ST 30-74M Diagnoses Shock R57.9 Bradycardia R00.1 Hypothermia T68.XXXA Hypoglycemia E16.2 CKD stage 3b, GFR 30-44 ml/min N18.32 Electrolyte abnormality E87.8 Metabolic acidosis E87.20 COPD (chronic obstructive pulmonary disease) J44.9
[2025-09-05] MEDS: NOREPINEPHRINE/D5W 4 MG/250 ML PLCT IV SCH (01:20)
[2025-09-05 01:22] LABS: T4 Free Thyroxine 1.62 ng/dl (0.61-1.60)
[2025-09-05] MEDS ORDERED: STAT IV Infusion **Titration per Protocol STA ×2 (01:44→03:13)
[2025-09-05 02:29] LABS: Appearance Urine Cloudy (Clear); Bacteria Urine Automated None Seen (None Seen); Cast Urine Automated >20 /lpf (0-2); Glucose Urine UA Negative (Negative); WBC Urine Automated 0-5 /hpf (0-5)
[2025-09-05 02:44] LABS: Base Excess VBG -9.1 mEq/L; HCO3 VBG 15 mmol/L; Oxygen Saturation VBG 62.4 %; PCO2 VBG 27 mmHg (38-50); PO2 VBG 39 mmHg; pH VBG 7.35 (7.36-7.41)
[2025-09-05] MEDS: THIAMINE HCL 300 MG in SODIUM CHLORIDE 0.9% 50 ML IV STA (02:45)
[2025-09-05] MEDS: ACETAMINOPHEN 1,000 MG/100 ML VIAL IV PRN (03:01)
[2025-09-05 03:06] LABS: Anion Gap 18.0 (3-11); Blood Urea Nitrogen 64.0 mg/dl (6-23); Calcium 8.3 mg/dl (8.6-10.3); Carbon Dioxide 16.0 mmol/L (21-32); Chloride 101.0 mmol/L (98-107); Creatinine Clr Calc Pharmacy 14.9 ml/min; Glucose 250.0 mg/dl (70-99(Fasting)); Potassium 4.9 mmol/L (3.5-5.1); Sodium 135.0 mmol/L (136-145)
[2025-09-05] MEDS: PLASMA-LYTE A 500 ML IV ONE (03:17)
[2025-09-05 03:40] LABS: Iron 24.0 mcg/dl (35-150); Total Iron Binding Cap Calc 265.0 mcg/dl (250-450); Transferrin 189.0 mg/dl (200-360); Transferrin (FE) Percent Satur 9.0 % (15-50)
[2025-09-05] MEDS: INSULIN REGULAR 250 UNITS in SODIUM CHLORIDE 0.9% 247.5 ML IV SCH (03:51)
[2025-09-05] MEDS: PIPERACILLIN/TAZOBACTAM 4.5 GM/100 ML BAG IV STA (04:00)
[2025-09-05] MEDS: INSULIN PROTOCOL GOAL RANGE ONE (04:07)
[2025-09-05] MEDS: MODERATE STRESS LEVEL ONE (04:08)
[2025-09-05] MEDS: DAPTOmycin 350 MG in SYRINGE 0 ML IV SCH (04:25)
[2025-09-05 05:02] LABS: Hematocrit (blood only) 23.5 % (37.0-47.0); Hemoglobin 7.3 g/dl (12.0-16.0); Mean Corpuscular Hemoglobin 24.8 pg (25.0-34.0); Mean Corpuscular Volume 79.9 fL (80.0-100.0); Platelet Count 434 K/uL (130-400); RDW Standard Deviation 46.7 fL (36.4-46.3); Red Blood Count 2.94 M/uL (4.20-5.40); White Blood Count 13.02 K/ul (4.8-10.8)
[2025-09-05 05:15] LABS: Alanine Aminotransferase 51.0 U/L (7-52); Albumin Globulin Ratio 0.8 (0.9-2); Albumin Level 2.6 gm/dl (3.4-5.0); Alkaline Phosphatase 308.0 U/L (34-104); Anion Gap 14.0 (3-11); Bilirubin,Total 0.4 mg/dl (0.2-1.0); Blood Urea Nitrogen 69.0 mg/dl (6-23); Calcium 8.7 mg/dl (8.6-10.3); Carbon Dioxide 22.0 mmol/L (21-32); Chloride 98.0 mmol/L (98-107); Creatinine Clr Calc Pharmacy 14.4 ml/min; Globulin 3.1 gm/dl (2.5-4.0); Glucose 187.0 mg/dl (70-99(Fasting)); Potassium 4.8 mmol/L (3.5-5.1); Sodium 134.0 mmol/L (136-145); Total Protein 5.7 gm/dl (6.0-8.3)
[2025-09-05 05:22] LABS: Hypochromasia Present; Immature Granulocytes # (auto) 0.08 K/uL (0.01-0.20); Immature Granulocytes % (auto) 0.6 %
[2025-09-05 05:26] LABS: INR 1.5 (0.9-1.1); Prothrombin Time 15.6 Seconds (9.0-12.0)
[2025-09-05] MEDS: PLASMA-LYTE A 1,000 ML IV SCH (05:34)
--- NOTE | 2025-09-05 05:37 | Billing Data ---
Date of Service September 05, 2025 Coding Level of Care Code 09599 CRITICAL CARE
[2025-09-05 06:13] LABS: Magnesium 3.7 mg/dl (1.7-2.4)
[2025-09-05] MEDS: CALCIUM GLUCONATE 1,000 MG/60 ML BAG IV SCH (08:05)
[2025-09-05] MEDS: INSULIN ASPART PER UNIT CHARGE SC SCH ×2 (08:06→13:04)
[2025-09-05] MEDS: THIAMINE HCL 200 MG in SODIUM CHLORIDE 0.9% 50 ML IV SCH (08:07)
[2025-09-05] MEDS: PANTOprazole 40 MG/10 ML SYR IV SCH (08:07)
[2025-09-05] MEDS: CHOLECALCIFEROL 25 MCG (1000 UNITS) TAB PO SCH (08:30)
[2025-09-05] MEDS: ASPIRIN 81 MG ECTAB PO SCH (08:30)
[2025-09-05] MEDS: DOCUSATE SODIUM 100 MG CAP PO SCH (08:43)
--- NOTE | 2025-09-05 08:45 | XCELERA ---
[id number] [id number]
--- NOTE | 2025-09-05 08:46 | Cardiology Consultation ---
Date of Consultation September 05, 2025 Assessment & Plan (1) Complete heart block: (2) Junctional bradycardia: (3) Elevated troponin: (4) Tricuspid regurgitation: (5) HTN (hypertension): (6) S/P thoracic aortic aneurysm repair: Plan ASSESSMENT/PLAN: 1. Complete heart block and junctional bradycardia: Despite correction of her potassium, she remains in heart block on this morning's ECG, however her heart rate is in the 40s with normal blood pressure. If no identifiable reversible cause and no improvement, permanent pacemaker placement may be indicated. There is no urgency as she is normotensive and asymptomatic in that regard at this time. If her urgent temporary pacing is necessary, could consider temporary pacemaker, which is not necessary at this time. 2. Elevated troponin: Likely due to demand ischemia as she was quite ill on presentation. She did not present with acute coronary syndrome. Ischemic evaluation not necessary at this time. 3. Tricuspid regurgitation: At least moderate on echo. Some images suggest that perhaps the tricuspid valve does not fully coapt during systole. Can be followed in the outpatient setting. 4. Thoracic aortic aneurysm s/p repair: Details not well-known at the time of this note. Would avoid fluoroquinolones if able. Discussed with critical care team (Isra). First-degree relatives should be screened (discussed with her daughter at the bedside). 5. Hypertension: Blood pressure normotensive today but did require pressor support on presentation per records. When/if antihypertensive regimen is necessary again, would consider something other than amlodipine due to lower extremity edema, which may or may not be contributing. 6. Acute on chronic renal failure: Creatinine was 1.39 on 07/18/2025 out side labs. Per primary hospitalist/critical care service. She was felt to be hypovolemic on presentation with significant diarrhea. 7. Hyperkalemia: Resolved. Per primary hospitalist service. 8. Hypothermia: Temperature has improved. 9. Disposition: Cardiology will continue to follow. She will be signed out to Dr. Garcia of electrophysiology, who will be available after 5 PM today throughout the weekend. Patient care communicated with critical care team and Dr. Ryan of the hospitalist service. Thank you for allowing me to participate in the care of your patient. Please call for any other questions or concerns. Sincerely, Kodak Veliz M.D. History of Present Illness Reason for Consultation: "eval for pacer support" Requesting Physician: Geronimo HALL Attending Physician: Torie Ryan MD History of Present Illness Mrs. Wills is a very pleasant 80-year-old female with history significant for bioprosthetic aortic valve (2017; AVR #[id number]), thoracic aortic aneurysm s/p hemiarch repair, squamous cell lung cancer s/p right middle lobe wedge resection (no chemo/XRT), borderline diabetes, hypertension, dyslipidemia, COPD, and CKD. Her primary fishing gear mechanic is Dr. Devlin in the [facility]. She was admitted on 09/05/2025 with altered mentation, severe bradycardia, hypothermia, hypoglycemia, hyperkalemia, acute on chronic renal failure, and metabolic acidosis. Her heart rate was reportedly in the 20s and she underwent transcutaneous pacing. She was treated for hyperkalemia. She was hypotensive with initial blood pressure 70s/50s per reports and a temperature of 31.7 C. She and her daughter, who was at the bedside, also provided history. She states that for months she has had bilateral leg pain and fatigue in general. She has had dyspnea on exertion recently. She states that she has chronic diarrhea once or twice per day but apparently her on presentation reported that she had 15 episodes of diarrhea the past 2 days. She was using milk of magnesia and large quantities apparently. She recalls having a shaking episode 2 or 3 weeks ago but denies fever. Her daughter recalls that she has been diagnosed with tachycardia and believes it was atrial fibrillation but she is on no rate controlling medication and is not on anticoagulation therapy. Her daughter was able to bring up her current medications through her portal with her other providers. Her legs have been swollen and weeping at times. She has had nausea but no vomiting for the past 2 months. She denies melena, hematochezia, hematuria. She believes that she had an episode of near syncope yesterday. She recalls walking to the restroom and fell, injuring her left elbow. She believes that she struck her head but denies headache. Transcutaneous pacing has since been discontinued. She had been on pressor support in the form of norepinephrine, which has since been discontinued. Her daughter believes that her mentation is back to her baseline. Review of systems: As above. Family history: No known premature CAD. Social history: Has smoked up to 1 pack/day but currently smoking 5 cigarettes/day. She denies alcohol or drug abuse. She lives at home with her . She has 5 children. Her daughter was present at the bedside. Allergies Allergy/AdvReac Type Severity Reaction Status Date / Time No Known Allergies Allergy Unverified 09/05/25 00:07 Home Medications Medication Instructions Recorded Confirmed Type acetaminophen 650 mg 1,300 mg PO QAM 09/05/25 09/05/25 History tablet,extended release albuterol sulfate 90 mcg/actuation 2 puff inhalation Q4H PRN 09/05/25 09/05/25 History aerosol inhaler (Ventolin HFA) Shortness Of Breath Or Wheezing amlodipine 10 mg tablet 10 mg PO DAILY 09/05/25 09/05/25 History aspirin 81 mg tablet 81 mg PO DAILY 09/05/25 09/05/25 History atorvastatin 10 mg tablet 10 mg PO DAILY 09/05/25 09/05/25 History cholecalciferol (vitamin D3) 25 25 mcg PO DAILY 09/05/25 09/05/25 History mcg (1,000 unit) tablet clonazepam 0.5 mg PO HS 09/05/25 09/05/25 History clonazepam 0.5 mg tablet 0.5 mg PO HS 09/05/25 09/05/25 History docusate sodium 100 mg capsule 100 mg PO BID 09/05/25 09/05/25 History ondansetron HCl 4 mg tablet 0.4 mg PO Q8H PRN Nausea And 09/05/25 09/05/25 History Vomiting varenicline tartrate 0.5 mg tablet 0.5 mg PO DIRECTED 09/05/25 09/05/25 History Problem List (Updated 09/05/25 @ 12:19 by Asher Veliz MD) S/P thoracic aortic aneurysm repair Tricuspid regurgitation Junctional bradycardia Complete heart block Elevated troponin Hypoglycemia Bradycardia Hypothermia Metabolic acidosis Electrolyte abnormality Shock Patient History Medical History Thyroid nodule HLD (hyperlipidemia) DMII (diabetes mellitus, type 2) Lung cancer HTN (hypertension) CKD stage 3b, GFR 30-44 ml/min COPD (chronic obstructive pulmonary disease) Surgical History (Updated 09/05/25 @ 12:19 by Asher Veliz MD) History of AAA (abdominal aortic aneurysm) repair Aortic valve replaced Social History Smoking Status: Current every day smoker Tobacco Type: Cigarettes Cigarettes Per Day: 3-4 cigarettes per day; Hx Alcohol Use: No Hx Substance Use: No Preferred Language: Serbian Communication Ability: Effective Black 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 Alert. HEENT: Anicteric sclera. Neck: No JVD. No bruits. Normal carotid upstrokes bilaterally. Cardiac: Regular but bradycardic in the 40s. Normal S1-S2. No murmurs, rubs, or gallops. Pulmonary: Expiratory wheezes bilaterally. No rales. Abdomen: Soft, nontender, nondistended, with normoactive bowel sounds. No bruits noted. Extremities: 2+ radial pulses bilaterally. 2+ posterior tibialis pulses bilaterally. 2+ bilateral lower extremity edema. No cyanosis. Results & Data Vital Signs (Past 12 Hours) Vital Signs Temp Pulse Pulse Resp BP BP Pulse Ox 09/05/25 06:45 36.3 C L 90 24 122/49 L 97 09/05/25 06:30 09/05/25 06:21 36.3 C L 80 19 95 09/05/25 06:15 120/49 L 09/05/25 06:15 120/49 L 09/05/25 06:15 120/49 L 09/05/25 06:00 120/47 L 09/05/25 06:00 36.3 C L 45 L 27 H 95 09/05/25 05:54 36.3 C L 75 25 H 95 09/05/25 05:33 36.1 C L 75 25 H 95 09/05/25 05:30 122/48 L 09/05/25 05:24 36.2 C L 73 18 95 09/05/25 05:15 121/46 L 09/05/25 05:15 121/46 L 09/05/25 05:15 36.2 C L 76 20 94 09/05/25 05:06 36.1 C L 76 18 95 09/05/25 05:00 125/46 L 09/05/25 05:00 125/46 L 09/05/25 05:00 125/46 L 09/05/25 04:48 36.0 C L 77 22 94 09/05/25 04:45 36.1 C L 77 19 96 09/05/25 04:45 117/43 L 09/05/25 04:45 117/43 L 09/05/25 04:45 117/43 L 09/05/25 04:45 117/43 L 09/05/25 04:33 36.1 C L 99 H 25 H 95 09/05/25 04:30 128/44 L 09/05/25 04:30 128/44 L 09/05/25 04:15 121/42 L 09/05/25 04:14 36.1 C L 76 16 94 09/05/25 04:02 36.0 C L 69 19 96 09/05/25 04:00 119/44 L 09/05/25 04:00 119/44 L 09/05/25 04:00 119/44 L 09/05/25 03:59 36.0 C L 76 26 H 96 09/05/25 03:47 35.8 C L 70 15 98 09/05/25 03:45 119/44 L 09/05/25 03:41 35.8 C L 70 18 99 09/05/25 03:35 35.8 C L 70 16 100 09/05/25 03:30 118/38 L 09/05/25 03:30 118/38 L 09/05/25 03:26 35.8 C L 70 21 99 09/05/25 03:15 119/38 L 09/05/25 03:11 35.7 C L 70 17 100 09/05/25 03:00 117/36 L 09/05/25 02:56 35.5 C L 70 19 100 09/05/25 02:50 35.5 C L 70 25 H 100 09/05/25 02:45 125/40 L 09/05/25 02:41 35.3 C L 70 13 100 09/05/25 02:30 115/39 L 09/05/25 02:27 35.1 C L 70 22 100 09/05/25 02:15 121/34 L 09/05/25 02:14 34.9 C L 70 21 100 09/05/25 02:03 34.7 C L 70 17 100 09/05/25 02:00 09/05/25 02:00 122/30 L 09/05/25 02:00 122/30 L 09/05/25 01:56 34.6 C L 70 22 100 09/05/25 01:48 113/32 L 09/05/25 01:36 34.4 C L 70 22 09/05/25 01:36 70 19 09/05/25 01:32 124/37 L 100 09/05/25 01:25 70 09/05/25 01:15 34.4 C L 70 20 123/32 L 97 09/05/25 00:37 34.0 C L 70 19 134/31 L 09/05/25 00:31 123/33 L 09/05/25 00:29 70 20 95 09/05/25 00:26 130/34 L 09/05/25 00:26 130/34 L 09/05/25 00:23 70 19 09/05/25 00:21 127/33 L 09/05/25 00:21 127/33 L 09/05/25 00:11 70 20 92/46 L 90 09/05/25 00:06 70 16 92/50 L 09/04/25 23:44 69 24 98/52 L 09/04/25 23:36 70 25 H 110/52 L 09/04/25 23:35 31.7 C L 09/04/25 23:24 70 26 H 92/50 L 09/04/25 23:18 70 09/04/25 23:15 70 24 O2 Del Method O2 Flow Rate 09/05/25 06:45 Room Air 09/05/25 06:30 Room Air 09/05/25 06:21 Room Air 09/05/25 06:15 09/05/25 06:15 09/05/25 06:15 09/05/25 06:00 09/05/25 06:00 Room Air 09/05/25 05:54 Room Air 09/05/25 05:33 Room Air 09/05/25 05:30 09/05/25 05:24 Room Air 09/05/25 05:15 09/05/25 05:15 09/05/25 05:15 09/05/25 05:06 09/05/25 05:00 09/05/25 05:00 09/05/25 05:00 09/05/25 04:48 Room Air 09/05/25 04:45 Room Air 09/05/25 04:45 09/05/25 04:45 09/05/25 04:45 09/05/25 04:45 09/05/25 04:33 Room Air 09/05/25 04:30 09/05/25 04:30 09/05/25 04:15 09/05/25 04:14 Room Air 09/05/25 04:02 Room Air 09/05/25 04:00 09/05/25 04:00 09/05/25 04:00 09/05/25 03:59 Room Air 09/05/25 03:47 Room Air 09/05/25 03:45 09/05/25 03:41 Room Air 09/05/25 03:35 Room Air, Oxymask 09/05/25 03:30 09/05/25 03:30 09/05/25 03:26 Oxymask 09/05/25 03:15 09/05/25 03:11 Oxymask 09/05/25 03:00 09/05/25 02:56 Oxymask 4 09/05/25 02:50 09/05/25 02:45 09/05/25 02:41 Oxymask 4 09/05/25 02:30 09/05/25 02:27 09/05/25 02:15 09/05/25 02:14 Oxymask 09/05/25 02:03 Oxymask 09/05/25 02:00 Non-rebreather 10 09/05/25 02:00 09/05/25 02:00 09/05/25 01:56 Aerosol Mask 09/05/25 01:48 09/05/25 01:36 09/05/25 01:36 Non-rebreather 151 09/05/25 01:32 Non-rebreather 09/05/25 01:25 09/05/25 01:15 Non-rebreather 15 09/05/25 00:37 Non-rebreather 15 09/05/25 00:31 09/05/25 00:29 09/05/25 00:26 09/05/25 00:26 09/05/25 00:23 09/05/25 00:21 09/05/25 00:21 09/05/25 00:11 09/05/25 00:06 09/04/25 23:44 09/04/25 23:36 09/04/25 23:35 09/04/25 23:24 09/04/25 23:18 09/04/25 23:15 Intake & Output 09/03/25 09/04/25 09/05/25 09/06/25 06:59 06:59 06:59 06:59 Intake Total 2356.860 / 2356.860 112 / 112 Output Total 110 / 110 Balance 2246.860 / 2246.860 112 / 112 Weight 107 lb 9.369 oz Laboratory Results Laboratory Results - last 24 hr 09/04/25 09/04/25 09/04/25 23:00 23:04 23:11 WBC 14.76 H RBC 3.17 L Hgb 8.0 L POC Hgb 9.2 L Hct 26.7 L POC Hct 27 L MCV 84.2 MCH 25.2 MCHC 30.0 L RDW Std Deviation 50.3 H RDW Coeff of Amara 16.9 H Plt Count 522 H MPV 9.8 Immature Gran % (Auto) 0.9 Neut % (Auto) 81.8 Lymph % (Auto) 10.9 Gaston % (Auto) 6.2 Eos % (Auto) 0.1 Baso % (Auto) 0.1 Neut # (Auto) 12.07 H Lymph # (Auto) 1.61 Gaston # (Auto) 0.91 H Eos # (Auto) 0.01 Baso # (Auto) 0.02 Immature Gran # (Auto) 0.14 Absolute Nucleated RBC 0.05 Nucleated RBC % (auto) 0.3 Hypochromasia PT INR Specimen Type Sample Site POC pH POC pCO2 POC pO2 POC HCO3 POC Base Excess ABG pH (Temp Correct) ABG pCO2 (Temp Corrct POC ABG pO2 at Pt Temp POC ABG O2 Sat David Test VBG pH VBG pCO2 VBG pO2 VBG HCO3 VBG O2 Saturation VBG Base Excess O2 Delivery Device POC FiO2 POC Sodium 130 L Sodium 134 L POC Potassium 6.8 H* Potassium 6.4 H* POC Chloride 108 Chloride 99 Carbon Dioxide 12 L POC Total CO2 11 L Anion Gap 23 H POC Anion Gap 18.0 POC BUN 74 H BUN 75 H Creatinine 2.55 H POC Creatinine 2.8 H Est Cr Clr Drug Dosing 13.3 eGFR 18.41 BUN/Creatinine Ratio 29.4 H Glucose 76 POC Glucose POC Glucose (other) 81 Lactate Calcium 8.7 POC Ioniz Calcium Raymond 0.85 L Ionized Calcium Phosphorus Magnesium 4.6 H Iron TIBC Transferrin Transferrin % Sat Total Bilirubin 0.5 AST 34 ALT 27 Alkaline Phosphatase 310 H Troponin I High Sens 151.6 H* Total Protein 6.9 Albumin 3.0 L Globulin 3.9 Albumin/Globulin Ratio 0.8 L TSH 5.501 H Free T4 1.62 H Random Cortisol 49.35 Urine Color Urine Appearance Urine pH Ur Specific Barry Urine Protein Urine Glucose (UA) Urine Ketones Urine Blood Urine Nitrite Urine Bilirubin Urine Urobilinogen Ur Leukocyte Esterase Urine WBC (Auto) Urine RBC (Auto) U Hyaline Cast (Auto) U Epithel Cells (Auto) Urine Bacteria (Auto) Nasal Screen MRSA (PCR) Anaplasma Smear A. phagocytophilum DNA Babesia Smear Babesia microti DNA PCR Lyme Disease Screen Ehrlichia DNA (PCR) Blood Type Blood Type Recheck Antibody Screen 09/04/25 09/04/25 09/04/25 23:19 23:41 23:53 WBC RBC Hgb POC Hgb 7.5 L 9.5 L Hct POC Hct 22 L 28 L MCV MCH MCHC RDW Std Deviation RDW Coeff of Amara Plt Count MPV Immature Gran % (Auto) Neut % (Auto) Lymph % (Auto) Gaston % (Auto) Eos % (Auto) Baso % (Auto) Neut # (Auto) Lymph # (Auto) Gaston # (Auto) Eos # (Auto) Baso # (Auto) Immature Gran # (Auto) Absolute Nucleated RBC Nucleated RBC % (auto) Hypochromasia PT INR Specimen Type Arterial Sample Site L Radial POC pH 7.33 L POC pCO2 19 L POC pO2 366 H POC HCO3 10 L POC Base Excess -16.0 L ABG pH (Temp Correct) 7.326 L ABG pCO2 (Temp Corrct 19 L POC ABG pO2 at Pt Temp 366 POC ABG O2 Sat 100.0 H David Test Pass VBG pH VBG pCO2 VBG pO2 VBG HCO3 VBG O2 Saturation VBG Base Excess O2 Delivery Device NonRb Mask POC FiO2 100 POC Sodium 132 L 132 L Sodium POC Potassium 5.9 H 6.4 H* Potassium POC Chloride 106 Chloride Carbon Dioxide POC Total CO2 10 L 14 L Anion Gap POC Anion Gap 20.0 POC BUN 69 H BUN Creatinine POC Creatinine 2.5 H Est Cr Clr Drug Dosing eGFR BUN/Creatinine Ratio Glucose POC Glucose 88 POC Glucose (other) 92 Lactate Calcium POC Ioniz Calcium Raymond 0.95 L Ionized Calcium Phosphorus Magnesium Iron TIBC Transferrin Transferrin % Sat Total Bilirubin AST ALT Alkaline Phosphatase Troponin I High Sens Total Protein Albumin Globulin Albumin/Globulin Ratio TSH Free T4 Random Cortisol Urine Color Urine Appearance Urine pH Ur Specific Barry Urine Protein Urine Glucose (UA) Urine Ketones Urine Blood Urine Nitrite Urine Bilirubin Urine Urobilinogen Ur Leukocyte Esterase Urine WBC (Auto) Urine RBC (Auto) U Hyaline Cast (Auto) U Epithel Cells (Auto) Urine Bacteria (Auto) Nasal Screen MRSA (PCR) Anaplasma Smear A. phagocytophilum DNA Babesia Smear Babesia microti DNA PCR Lyme Disease Screen Ehrlichia DNA (PCR) Blood Type Blood Type Recheck Antibody Screen 09/05/25 09/05/25 09/05/25 00:25 01:05 01:30 WBC RBC Hgb POC Hgb Hct POC Hct MCV MCH MCHC RDW Std Deviation RDW Coeff of Amara Plt Count MPV Immature Gran % (Auto) Neut % (Auto) Lymph % (Auto) Gaston % (Auto) Eos % (Auto) Baso % (Auto) Neut # (Auto) Lymph # (Auto) Gaston # (Auto) Eos # (Auto) Baso # (Auto) Immature Gran # (Auto) Absolute Nucleated RBC Nucleated RBC % (auto) Hypochromasia PT INR Specimen Type Sample Site POC pH POC pCO2 POC pO2 POC HCO3 POC Base Excess ABG pH (Temp Correct) ABG pCO2 (Temp Corrct POC ABG pO2 at Pt Temp POC ABG O2 Sat David Test VBG pH VBG pCO2 VBG pO2 VBG HCO3 VBG O2 Saturation VBG Base Excess O2 Delivery Device POC FiO2 POC Sodium Sodium POC Potassium Potassium POC Chloride Chloride Carbon Dioxide POC Total CO2 Anion Gap POC Anion Gap POC BUN BUN Creatinine POC Creatinine Est Cr Clr Drug Dosing eGFR BUN/Creatinine Ratio Glucose POC Glucose 183 H 214 H POC Glucose (other) Lactate Calcium POC Ioniz Calcium Raymond Ionized Calcium Phosphorus Magnesium Iron TIBC Transferrin Transferrin % Sat Total Bilirubin AST ALT Alkaline Phosphatase Troponin I High Sens Total Protein Albumin Globulin Albumin/Globulin Ratio TSH Free T4 Random Cortisol Urine Color Urine Appearance Urine pH Ur Specific Barry Urine Protein Urine Glucose (UA) Urine Ketones Urine Blood Urine Nitrite Urine Bilirubin Urine Urobilinogen Ur Leukocyte Esterase Urine WBC (Auto) Urine RBC (Auto) U Hyaline Cast (Auto) U Epithel Cells (Auto) Urine Bacteria (Auto) Nasal Screen MRSA (PCR) Positive A Anaplasma Smear A. phagocytophilum DNA Babesia Smear Babesia microti DNA PCR Lyme Disease Screen Ehrlichia DNA (PCR) Blood Type Blood Type Recheck Antibody Screen 09/05/25 09/05/25 09/05/25 01:45 02:19 03:18 WBC RBC Hgb POC Hgb Hct POC Hct MCV MCH MCHC RDW Std Deviation RDW Coeff of Amara Plt Count MPV Immature Gran % (Auto) Neut % (Auto) Lymph % (Auto) Gaston % (Auto) Eos % (Auto) Baso % (Auto) Neut # (Auto) Lymph # (Auto) Gaston # (Auto) Eos # (Auto) Baso # (Auto) Immature Gran # (Auto) Absolute Nucleated RBC Nucleated RBC % (auto) Hypochromasia PT INR Specimen Type Sample Site POC pH POC pCO2 POC pO2 POC HCO3 POC Base Excess ABG pH (Temp Correct) ABG pCO2 (Temp Corrct POC ABG pO2 at Pt Temp POC ABG O2 Sat David Test VBG pH 7.35 L VBG pCO2 27 L VBG pO2 39 VBG HCO3 15 VBG O2 Saturation 62.4 VBG Base Excess -9.1 O2 Delivery Device POC FiO2 POC Sodium Sodium 135 L POC Potassium Potassium 4.9 D POC Chloride Chloride 101 Carbon Dioxide 16 L POC Total CO2 Anion Gap 18 H POC Anion Gap POC BUN BUN 64 H Creatinine 2.28 H POC Creatinine Est Cr Clr Drug Dosing 14.9 eGFR 21.05 BUN/Creatinine Ratio 28.1 H Glucose 250 H POC Glucose POC Glucose (other) Lactate 10.2 H* Calcium 8.3 L POC Ioniz Calcium Raymond Ionized Calcium Phosphorus Magnesium 3.7 H Iron 24 L TIBC 265 Transferrin 189 L Transferrin % Sat 9 L Total Bilirubin AST ALT Alkaline Phosphatase Troponin I High Sens Total Protein Albumin Globulin Albumin/Globulin Ratio TSH Free T4 Random Cortisol Urine Color Yellow Urine Appearance Cloudy A Urine pH 5.0 Ur Specific Barry 1.027 Urine Protein 1+ H Urine Glucose (UA) Negative Urine Ketones Trace H Urine Blood Negative Urine Nitrite Negative Urine Bilirubin Negative Urine Urobilinogen Negative Ur Leukocyte Esterase Negative Urine WBC (Auto) 0-5 Urine RBC (Auto) 6-10 H U Hyaline Cast (Auto) >20 H U Epithel Cells (Auto) 3-5 H Urine Bacteria (Auto) None Seen Nasal Screen MRSA (PCR) Anaplasma Smear A. phagocytophilum DNA Babesia Smear Babesia microti DNA PCR Lyme Disease Screen Ehrlichia DNA (PCR) Blood Type A Negative Blood Type Recheck Antibody Screen NEGATIVE 09/05/25 09/05/25 09/05/25 04:42 04:47 05:01 WBC 13.02 H RBC 2.94 L Hgb 7.3 L POC Hgb Hct 23.5 L POC Hct MCV 79.9 L D MCH 24.8 L MCHC 31.1 L RDW Std Deviation 46.7 H RDW Coeff of Amara 16.7 H Plt Count 434 H MPV 9.4 Immature Gran % (Auto) 0.6 Neut % (Auto) 89.2 Lymph % (Auto) 6.5 Gaston % (Auto) 3.6 Eos % (Auto) 0.0 Baso % (Auto) 0.1 Neut # (Auto) 11.62 H Lymph # (Auto) 0.84 L Gaston # (Auto) 0.47 Eos # (Auto) 0.00 Baso # (Auto) 0.01 Immature Gran # (Auto) 0.08 Absolute Nucleated RBC 0.04 Nucleated RBC % (auto) 0.3 Hypochromasia Present PT 15.6 H INR 1.5 H Specimen Type Sample Site POC pH POC pCO2 POC pO2 POC HCO3 POC Base Excess ABG pH (Temp Correct) ABG pCO2 (Temp Corrct POC ABG pO2 at Pt Temp POC ABG O2 Sat David Test VBG pH VBG pCO2 VBG pO2 VBG HCO3 VBG O2 Saturation VBG Base Excess O2 Delivery Device POC FiO2 POC Sodium Sodium 134 L POC Potassium Potassium 4.8 POC Chloride Chloride 98 Carbon Dioxide 22 POC Total CO2 Anion Gap 14 H POC Anion Gap POC BUN BUN 69 H Creatinine 2.36 H POC Creatinine Est Cr Clr Drug Dosing 14.4 eGFR 20.20 BUN/Creatinine Ratio 29.2 H Glucose 187 H POC Glucose 172 H POC Glucose (other) Lactate 6.4 H* 5.4 H* Calcium 8.7 POC Ioniz Calcium Raymond Ionized Calcium 1.05 L Phosphorus 7.4 H Magnesium Iron TIBC Transferrin Transferrin % Sat Total Bilirubin 0.4 AST 102 H ALT 51 Alkaline Phosphatase 308 H Troponin I High Sens 162.0 H* Total Protein 5.7 L Albumin 2.6 L Globulin 3.1 Albumin/Globulin Ratio 0.8 L TSH Free T4 Random Cortisol Urine Color Urine Appearance Urine pH Ur Specific Barry Urine Protein Urine Glucose (UA) Urine Ketones Urine Blood Urine Nitrite Urine Bilirubin Urine Urobilinogen Ur Leukocyte Esterase Urine WBC (Auto) Urine RBC (Auto) U Hyaline Cast (Auto) U Epithel Cells (Auto) Urine Bacteria (Auto) Nasal Screen MRSA (PCR) Anaplasma Smear A. phagocytophilum DNA Babesia Smear Babesia microti DNA PCR Lyme Disease Screen Ehrlichia DNA (PCR) Blood Type Blood Type Recheck Antibody Screen 09/05/25 09/05/25 09/05/25 05:32 06:16 06:49 WBC RBC Hgb POC Hgb Hct POC Hct MCV MCH MCHC RDW Std Deviation RDW Coeff of Amara Plt Count MPV Immature Gran % (Auto) Neut % (Auto) Lymph % (Auto) Gaston % (Auto) Eos % (Auto) Baso % (Auto) Neut # (Auto) Lymph # (Auto) Gaston # (Auto) Eos # (Auto) Baso # (Auto) Immature Gran # (Auto) Absolute Nucleated RBC Nucleated RBC % (auto) Hypochromasia PT INR Specimen Type Sample Site POC pH POC pCO2 POC pO2 POC HCO3 POC Base Excess ABG pH (Temp Correct) ABG pCO2 (Temp Corrct POC ABG pO2 at Pt Temp POC ABG O2 Sat David Test VBG pH VBG pCO2 VBG pO2 VBG HCO3 VBG O2 Saturation VBG Base Excess O2 Delivery Device POC FiO2 POC Sodium Sodium POC Potassium Potassium POC Chloride Chloride Carbon Dioxide POC Total CO2 Anion Gap POC Anion Gap POC BUN BUN Creatinine POC Creatinine Est Cr Clr Drug Dosing eGFR BUN/Creatinine Ratio Glucose POC Glucose 136 H POC Glucose (other) Lactate 3.9 H* Calcium POC Ioniz Calcium Raymond Ionized Calcium Phosphorus Magnesium Iron TIBC Transferrin Transferrin % Sat Total Bilirubin AST ALT Alkaline Phosphatase Troponin I High Sens Total Protein Albumin Globulin Albumin/Globulin Ratio TSH Free T4 Random Cortisol Urine Color Urine Appearance Urine pH Ur Specific Barry Urine Protein Urine Glucose (UA) Urine Ketones Urine Blood Urine Nitrite Urine Bilirubin Urine Urobilinogen Ur Leukocyte Esterase Urine WBC (Auto) Urine RBC (Auto) U Hyaline Cast (Auto) U Epithel Cells (Auto) Urine Bacteria (Auto) Nasal Screen MRSA (PCR) Anaplasma Smear A. phagocytophilum DNA Babesia Smear Babesia microti DNA PCR Lyme Disease Screen Ehrlichia DNA (PCR) Blood Type Blood Type Recheck A Negative Antibody Screen 09/05/25 09/05/25 07:50 08:04 WBC RBC Hgb POC Hgb Hct POC Hct MCV MCH MCHC RDW Std Deviation RDW Coeff of Amara Plt Count MPV Immature Gran % (Auto) Neut % (Auto) Lymph % (Auto) Gaston % (Auto) Eos % (Auto) Baso % (Auto) Neut # (Auto) Lymph # (Auto) Gaston # (Auto) Eos # (Auto) Baso # (Auto) Immature Gran # (Auto) Absolute Nucleated RBC Nucleated RBC % (auto) Hypochromasia PT INR Specimen Type Sample Site POC pH POC pCO2 POC pO2 POC HCO3 POC Base Excess ABG pH (Temp Correct) ABG pCO2 (Temp Corrct POC ABG pO2 at Pt Temp POC ABG O2 Sat David Test VBG pH VBG pCO2 VBG pO2 VBG HCO3 VBG O2 Saturation VBG Base Excess O2 Delivery Device POC FiO2 POC Sodium Sodium POC Potassium Potassium POC Chloride Chloride Carbon Dioxide POC Total CO2 Anion Gap POC Anion Gap POC BUN BUN Creatinine POC Creatinine Est Cr Clr Drug Dosing eGFR BUN/Creatinine Ratio Glucose POC Glucose 95 POC Glucose (other) Lactate Calcium POC Ioniz Calcium Raymond Ionized Calcium Phosphorus Magnesium Iron TIBC Transferrin Transferrin % Sat Total Bilirubin AST ALT Alkaline Phosphatase Troponin I High Sens Total Protein Albumin Globulin Albumin/Globulin Ratio TSH Free T4 Random Cortisol Urine Color Urine Appearance Urine pH Ur Specific Barry Urine Protein Urine Glucose (UA) Urine Ketones Urine Blood Urine Nitrite Urine Bilirubin Urine Urobilinogen Ur Leukocyte Esterase Urine WBC (Auto) Urine RBC (Auto) U Hyaline Cast (Auto) U Epithel Cells (Auto) Urine Bacteria (Auto) Nasal Screen MRSA (PCR) Anaplasma Smear Pending A. phagocytophilum DNA Pending Babesia Smear Pending Babesia microti DNA PCR Pending Lyme Disease Screen Pending Ehrlichia DNA (PCR) Pending Blood Type Blood Type Recheck Antibody Screen Diagnostic Findings ECHO 09/05/25: 1. Normal left ventricular size and systolic function. EF 60-65%. No regional wall motion abnormalities. No left ventricular hypertrophy. 2. Moderately dilated right ventricle with mildly reduced systolic function. 3. Severe biatrial dilation. 4. Mild mitral regurgitation. 5. At least moderate tricuspid regurgitation. 6. Moderate pulmonary hypertension. Estimated RVSP 58 mmHg. 7. No prior study available for comparison. ECGs personally reviewed: ECG 09/04/2025 at 2253: Probable sinus bradycardia with third-degree AV block and ventricular escape rhythm at 23 bpm. ECG 09/05/2025 at 6:06 AM: Sinus rhythm with third-degree AV block and junctional bradycardia at 44 bpm. ECG 09/05/2025 at 7:47 AM: Sinus rhythm with third-degree AV block and junctional bradycardia at 44 bpm. Septal infarct. Labs reviewed and notable for elevated high-sensitivity troponin (162), hyponatremia, hyperkalemia with improved potassium from 6.4 down to 4.8, abnormal renal function (above baseline), hypermagnesemia, mildly elevated TSH, mild leukocytosis, worsening anemia from baseline, elevated lactate 10.2 but has since normalized. Chest x-ray 09/04/2025: Trace bilateral pleural effusions per radiology. Chest x-ray image personally reviewed and no obvious infiltrate. History and physical report and critical care consultation report reviewed. Historical labs provided by her daughter at the bedside from 07/18/2025: Sodium 134; potassium 4.7; BUN 18; creatinine 1.39; WBC 7.5; hemoglobin 10.4; platelets 327 Outside echo report from 06/27/2023 reviewed: Normal LV systolic function. EF 65-70%. Normal RV size and systolic function. Bioprosthetic aortic valve appropriately functioning. Mild tricuspid regurgitation. Medications Administered Current Inpatient Medications Albuterol (Albut/Ipratrop 3mg/0.5mg Neb 3 Ml Vial) 3 ml NEB Q2H PRN; Protocol PRN Reason: dyspnea Stop: 10/05/25 00:33 Aspirin (Aspirin 81 Mg Ectab) 81 mg PO DAILY KRISTAN Stop: 10/05/25 08:59 Last Admin: 09/05/25 08:30 Dose: 81 mg Docusate Sodium (Docusate Sodium 100 Mg Cap) 100 mg PO BID KRISTAN Stop: 10/05/25 08:59 Last Admin: 09/05/25 08:43 Dose: Not Given Pantoprazole Sodium (Protonix) 40 mg in 10 mls @ 5 mls/min IV DAILY KRISTAN Stop: 10/05/25 08:59 Last Admin: 09/05/25 08:07 Dose: 5 mls/min Norepinephrine Bitartrate (Levophed/D5w) 4 mg in 250 mls @ 0 mls/hr IV .Q0M KRISTAN; Protocol Stop: 10/05/25 01:44 Last Titration: 09/05/25 06:45 Dose: 0 mcg/kg/min, 0 mls/hr Acetaminophen (Ofirmev) 1,000 mg in 100 mls @ 400 mls/hr IV Q8H PRN PRN Reason: Pain or Fever Stop: 09/08/25 02:16 Last Infusion: 09/05/25 03:13 Dose: Infused Thiamine HCl 200 mg/ Sodium (Chloride) 52 mls @ 210 mls/hr IV QAM [facility] Stop: 10/05/25 08:59 Last Infusion: 09/05/25 08:40 Dose: Infused Piperacillin Sod/Tazobactam Sod (Zosyn) 4.5 gm in 100 mls @ 25 mls/hr IV Q12H KRISTAN; Protocol Stop: 09/15/25 11:59 Insulin Human Regular 250 (units/ Sodium Chloride) 250 mls @ 0 mls/hr IV .Q0M KRISTAN; Protocol Stop: 10/05/25 03:14 Last Titration: 09/05/25 06:25 Dose: 0 units/hr, 0 mls/hr Daptomycin 350 mg/ Syringe 7 mls @ 3.5 mls/min IV Q48H KRISTAN; Protocol Stop: 09/07/25 04:59 Last Admin: 09/05/25 04:25 Dose: 3.5 mls/min Parenteral Electrolytes (Plasma-Lyte A Ph 7.4) 1,000 mls @ 175 mls/hr IV .Q5H43M KRISTAN Stop: 09/08/25 05:29 Last Admin: 09/05/25 05:34 Dose: 175 mls/hr Insulin Aspart (Insulin Aspart Per Unit Charge) 0 units SC ACHS [facility] Stop: 10/05/25 07:29 Last Admin: 09/05/25 08:06 Dose: Not Given Vitamin D (Cholecalciferol 25 Mcg (1000 Units) Tab) 25 mcg PO DAILY KRISTAN Stop: 10/05/25 08:59 Last Admin: 09/05/25 08:30 Dose: 25 mcg PG Care Time/CCT Total # of Minutes Spent Total Time Spent with Patient: Total time spent is greater than 50% in coordination of care (as documented) at patient's floor/unit and/or counseling patient: Coding Level of Care Code 50411 INT INP/OBS CARE 3/75MIN Diagnoses Complete heart block I44.2 Junctional bradycardia R00.1 Elevated troponin R79.89 Tricuspid regurgitation I07.1 HTN (hypertension) I10 S/P thoracic aortic aneurysm repair Z98.890; Z86.79
[2025-09-05] MEDS: ONDANSETRON INJ 2 MG/ML 2 ML VIAL IV PRN (09:40)
[2025-09-05] MEDS ORDERED: GLUCOSE 10 TAB/TUBE PO PRN (10:00)
[2025-09-05] MEDS ORDERED: GLUCAGON FOR INJ 1 MG VIAL SQ PRN (10:00)
[2025-09-05] MEDS ORDERED: GLUCOSE 40% GEL 15 GM TUBE PO PRN (10:00)
[2025-09-05] MEDS ORDERED: CARBOHYDRATES FOR HYPOGLYCEMIA PO PRN (10:00)
[2025-09-05 11:35] LABS: Anion Gap 9.0 (3-11); Blood Urea Nitrogen 67.0 mg/dl (6-23); Calcium 8.6 mg/dl (8.6-10.3); Carbon Dioxide 28.0 mmol/L (21-32); Chloride 98.0 mmol/L (98-107); Creatinine Clr Calc Pharmacy 15.4 ml/min; Glucose 89.0 mg/dl (70-99(Fasting)); Magnesium 3.9 mg/dl (1.7-2.4); Potassium 4.5 mmol/L (3.5-5.1); Sodium 135.0 mmol/L (136-145)
[2025-09-05] MEDS ORDERED: PIPERACILLIN/TAZOBACTAM 4.5 GM/100 ML BAG IV SCH (12:00)
[2025-09-05] MEDS ORDERED: ALBUT/IPRATROP 3MG/0.5MG NEB 3 ML VIAL NEB PRN (12:15)
[2025-09-05] MEDS: ALBUT/IPRATROP 3MG/0.5MG NEB 3 ML VIAL NEB PRN (12:40)
[2025-09-05] MEDS: CALCIUM CARBONATE 500 MG CHEWABLE TAB PO PRN (13:59)
--- NOTE | 2025-09-05 19:44 | History & Physical Bridge Note ---
Date of Service September 05, 2025 History & Physical Bridge Note I have examined the patient, reviewed the History & Physical and in the interval since the performance of the History & Physical I have noted the following changes of clinical significance: Patient is weaned off vasopressors, no longer on transcutaneous pacing but heart rate remains in the 40s. I discussed her care with cardiology. She is now awake and oriented and communicating. BRITTON is improving, hypothermia and hypotension improving, hyperkalemia resolved, with some ischemic hepatitis likely With severe anemia but baseline hemoglobin 10.4 apparently on previous labs from 1 month prior [employer] converted to Levaquin for antibiotic coverage-unclear source Continue current treatment with IV fluids, may need pacemaker if bradycardia does not improve Follow CBC and check labs for anemia-B12, folate, iron studies in the morning Elevated troponin as myocardial demand ischemia, echo without wall motion abnormalities but with dilated RV and moderate TR
--- NOTE | 2025-09-05 19:46 | Electrocardiogram Report ---
Test Reason : Blood Pressure : */* mmHG Vent. Rate : 23 BPM Atrial Rate : * BPM P-R Int : * ms QRS Dur : 130 ms QT Int : 640 ms P-R-T Axes : * -72 88 degrees QTcB Int : 395 ms Poor data quality, interpretation may be adversely affected Sinus bradycardia with complete heart block and ventricular escape rhythm Left axis deviation Non-specific intra-ventricular conduction block Inferior infarct , age undetermined T wave abnormality, consider anterolateral ischemia Abnormal ECG No previous ECGs available Confirmed by Asher Veliz ([id number]) on 09/05/2025 7:45:56 PM Referred By: REFERRED SELF Confirmed By: Asher Veliz
--- NOTE | 2025-09-05 19:47 | Electrocardiogram Report ---
Test Reason : Blood Pressure : */* mmHG Vent. Rate : 44 BPM Atrial Rate : * BPM P-R Int : * ms QRS Dur : 80 ms QT Int : 588 ms P-R-T Axes : * 94 98 degrees QTcB Int : 504 ms Sinus rhythm with complete heart block and Junctional bradycardia Rightward axis Septal infarct , age undetermined Abnormal ECG When compared with ECG of 04-Sep-2025 22:53, Junctional rhythm has replaced Idioventricular rhythm Vent. rate has increased by 21 bpm Confirmed by Asher Veliz ([id number]) on 09/05/2025 7:47:24 PM Referred By: REFERRED SELF Confirmed By: Asher Veliz
--- NOTE | 2025-09-05 19:47 | Emergency Department Note ---
Impression & Plan Symptomatic bradycardia, Acute hyperkalemia, Hypocalcemia admit to the ICU ED Provider Note NAME: MARY ANNE MAKI AGE: 80 SEX: Female INFORMANT: Patient ED PROVIDER(S): Britt Mulligan DO CHIEF COMPLAINT: Weakness and syncope PLAN: Disposition: admit to the ICU MEDICAL DECISION MAKING: this is an 80-year-old female patient whose had increasing weakness over the past couple of weeks according to the . She became drastically more weak today with swelling in her legs. Patient got up to go to the bathroom and collapsed in the hallway. He describes the patient as being unresponsive for 3- 4 minutes despite her eyes being open. On presentation to the emergency department, the patient does describe weakness but describes diffuse body stiffness which has been increasing over the past 48 hours. She thought this might be secondary to her magnesium level so she had eaten a significant amount of nuts and took milk of magnesia. Patient presented with heart rates between 17 and 23. We began transcutaneous pacing. Family describes that the patient would want everything done as necessary. Bxlvo-pe-psdr testing revealed significant hyperkalemia and hypocalcemia. EKG initially was a junctional bradycardia at a rate of 23-25 but then became idioventricular around 17. Patient was treated aggressively for hyperkalemia with DuoNeb, bicarb sodium bicarbonate, and D10. once her blood sugar is more elevated, she will receive IV insulin. In order to support her blood pressure, the patient was placed on IV Levophed. For the hypocalcemia, the patient originally received IV calcium gluconate and then a dose of IV calcium chloride. Care/management discussed with: continuum of care manager, critical care team, and [facility] Triage Nursing notes: [reviewed and agree with them]. Vital Signs: reviewed and remarkable for bradycardia, hypoxia, hypotension Additional History obtained from: patient's daughter and who are at the bedside. 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 At that time, she was told that she was hypercalcemic and hypomagnesemic. Prior/ Outside/ External records reviewed: I did look at outside records that the patient's had with him from [facility] Differential Diagnosis: renal failure, hyperkalemia, hypocalcemia, cardiac ischemia, cardiac dysrhythmia Diagnostics, independently interpreted by me: ECG: idioventricular rhythm at a rate of 23 Cardiac Monitoring: junctional bradycardia at a rate of 25 Imaging studies: portable chest x-ray: Trace bilateral pleural effusions as per Imbro HPI: 80 year old Female arrives for evaluation of weakness and syncope. patient's explains that she has become increasingly weak over the past 5 to 7 days. She got up to go to the bathroom and collapsed in the hallway facedown. When he got to the patient, he rolled her over and she was breathing but unresponsive. EMS found the patient in a significant bradycardic rhythm and administered IV atropine with no change. Patient's blood pressure was greater than 100 at that time. BSG was 71.. PAST MEDICAL HISTORY: See Below, PAST SURGICAL HISTORY: See Below, SOCIAL HISTORY: See Below, HOME MEDICATIONS: See list ALLERGIES: none VITALS: See Below PHYSICAL EXAMINATION: HEENT: Head - normocephalic and atraumatic. Pupils are equal, round, and reactive to light. Extraocular eye muscles are intact, and sclera are anicteric. Nose - moist nasal mucosa without discharge. Mouth - Extremely dry buccal mucosa. Oropharynx is nonerythematous and there is no tonsillar exudate or edema noted. Neck: Supple; no JVD, nuchal rigidity, cervical lymphadenopathy. Heart: extremely bradycardic rate with a regular rhythm. There is a normal S1 and S2 with no murmurs, clicks, or gallops appreciated. Lungs: Clear to auscultation bilaterally with no wheezes, rales, or rhonchi. Abdomen: Soft, completely nontender, nondistended, with good bowel sounds. There are no palpable pulsatile masses or hepatosplenomegaly. There is no guarding, rigidity, or rebound noted. Extremities: No evidence of cyanosis, clubbing, or edema. There are No palpable peripheral pulses. Skin: Pale and cool with poor turgor and no rashes. neuro: The patient is slightly lethargic but able to follow commands and answer questions. Emergency department treatment: quality assurance monitor body, IV normal saline bolus, transcutaneous pacing, DuoNeb treatment, IV calcium gluconate IV sodium bicarbonate, IV D10 x 2, IV calcium chloride, IV Levophed drip emergency department course: The patient was emergently evaluated in room B-1. A complete history and physical was performed. We could not obtain accurate pulse oximetry. The patient was on 15 L by nonrebreather mask. -second IV lock was obtained and [id number]-[id number] testing was performed. This revealed a potassium of 6.8, ionized calcium of 0.85, glucose of 81, BUN of 74 and creatinine of 2.8. Patient was anemic with a hemoglobin of 9.2. Blood pressure was found to be significantly low in the 60s systolic. She was bolused with 500 cc of normal saline solution and a Levophed drip was started. Patient's heart rate was a junctional bradycardia originally around 22-23 but dropped to 17. At that point I began to pace the patient with a transcutaneous pacer. We started at a rate of 70 and the milliamps were at 10 initially and then bumped to 20 where we had capture. Portable chest x-ray was performed. ABG was obtained and revealed a pH of 7.32, pCO2 of 18, pO2 of 366 and bicarb of 9.8. For the patient's hyperkalemia, she was given a DuoNeb treatment and 25 g of D10 IV. She was also given an amp of sodium bicarb. Patient was significantly hypocalcemic and was given a amp of IV calcium gluconate. Patient's blood pressure had only come up into the 70s with the pacing and Levophed. The milliamps were increased to 40. Patient continued to have capture and blood pressure seem to begin to elevate. Repeat i-STAT testing was performed which revealed potassium of 6.4, glucose of 92, and ionized calcium of 0.95. Patient was given another 25 g of D10 along with a amp of IV calcium chloride. I discussed the case with the critical care team along with the [facility] Hospitalist and they will evaluate for further inpatient care. they plan to place her on a sodium bicarbonate drip. I have personally spent greater than 105 minutes of critical care time in the direct management of this patient. This includes bedside care, interpretation of diagnostic studies, and testing, discussion with consultants, patient, and family members, and other required patient management activities. This 105 minutes is in excess of all separately billable procedures. Past Med/Surg History Problem List (Updated 09/05/25 @ 19:47 by Britt Mulligan DO) Hypocalcemia (Acute) Acute hyperkalemia (Acute) Symptomatic bradycardia (Acute) S/P thoracic aortic aneurysm repair Tricuspid regurgitation Junctional bradycardia Complete heart block Elevated troponin Hypoglycemia Bradycardia Hypothermia Metabolic acidosis Electrolyte abnormality Shock Medical History Thyroid nodule HLD (hyperlipidemia) DMII (diabetes mellitus, type 2) Lung cancer HTN (hypertension) CKD stage 3b, GFR 30-44 ml/min COPD (chronic obstructive pulmonary disease) Surgical History (Updated 09/05/25 @ 12:19 by Asher Veliz MD) History of AAA (abdominal aortic aneurysm) repair Aortic valve replaced Social History Smoking Status: Current every day smoker Tobacco Type: Cigarettes Cigarettes Per Day: 3-4 cigarettes per day; Hx Alcohol Use: No Hx Substance Use: No Preferred Language: Georgian Communication Ability: Effective Digital Content Coordinator Required: No Beliefs That Will Affect Care: None Current Living Situation: Spouse Other Information That Helps Us Care for You: No Feels Safe at Home: Yes Safety Concerns: Feels Safe At This Time Assistive Devices: Denture - Upper, Denture - Lower and Glasses Allergies Allergies Allergy/AdvReac Type Severity Reaction Status Date / Time No Known Allergies Allergy Unverified 09/05/25 00:07 Home Meds Home Medications Medication Instructions Recorded Confirmed acetaminophen 650 mg 1,300 mg PO QAM 09/05/25 09/05/25 tablet,extended release albuterol sulfate 90 mcg/actuation 2 puff inhalation Q4H PRN 09/05/25 09/05/25 aerosol inhaler (Ventolin HFA) Shortness Of Breath Or Wheezing amlodipine 10 mg tablet 10 mg PO DAILY 09/05/25 09/05/25 aspirin 81 mg tablet 81 mg PO DAILY 09/05/25 09/05/25 atorvastatin 10 mg tablet 10 mg PO DAILY 09/05/25 09/05/25 cholecalciferol (vitamin D3) 25 25 mcg PO DAILY 09/05/25 09/05/25 mcg (1,000 unit) tablet clonazepam 0.5 mg PO HS 09/05/25 09/05/25 clonazepam 0.5 mg tablet 0.5 mg PO HS 09/05/25 09/05/25 docusate sodium 100 mg capsule 100 mg PO BID 09/05/25 09/05/25 ondansetron HCl 4 mg tablet 0.4 mg PO Q8H PRN Nausea And 09/05/25 09/05/25 Vomiting varenicline tartrate 0.5 mg tablet 0.5 mg PO DIRECTED 09/05/25 09/05/25 Results & Data (ED) Vital Signs Vital Signs - 24 hr 09/04/25 23:15 09/04/25 23:18 09/04/25 23:24 Temperature Temperature Source Pulse Rate 70 70 70 Pulse Rate [Forehead] Pulse Rate from SpO2 Sensor 70 Pulse Rhythm [Forehead] Respiratory Rate 24 26 H Respiratory Effort / Characteristics Respiratory Depth Blood Pressure 92/50 L Blood Pressure [Right Arm] Blood Pressure Mean 64 Blood Pressure Mean [Right Arm] Blood Pressure Position [Right Arm] Pulse Oximetry Oxygen Delivery Method Oxygen Flow Rate Sepsis Recent Fever Within 48 Hours Sepsis New/Unexplained Change in Mental Status Sepsis Action Taken by Nursing 09/04/25 23:35 09/04/25 23:36 09/04/25 23:44 Temperature 31.7 C L Temperature Source Reynoso Cath ( Temp Sensing) Pulse Rate 70 69 Pulse Rate [Forehead] Pulse Rate from SpO2 Sensor 69 69 Pulse Rhythm [Forehead] Respiratory Rate 25 H 24 Respiratory Effort / Characteristics Respiratory Depth Blood Pressure 110/52 L 98/52 L Blood Pressure [Right Arm] Blood Pressure Mean 71 67 Blood Pressure Mean [Right Arm] Blood Pressure Position [Right Arm] Pulse Oximetry Oxygen Delivery Method Oxygen Flow Rate Sepsis Recent Fever Within 48 Hours No Sepsis New/Unexplained Change in Mental Status N/A Sepsis Action Taken by Nursing No Action Required 09/05/25 00:06 09/05/25 00:11 09/05/25 00:21 Temperature Temperature Source Pulse Rate 70 70 Pulse Rate [Forehead] Pulse Rate from SpO2 Sensor Pulse Rhythm [Forehead] Respiratory Rate 16 20 Respiratory Effort / Characteristics Respiratory Depth Blood Pressure 92/50 L 92/46 L 127/33 L Blood Pressure [Right Arm] Blood Pressure Mean 64 61 53 Blood Pressure Mean [Right Arm] Blood Pressure Position [Right Arm] Pulse Oximetry 90 Oxygen Delivery Method Oxygen Flow Rate Sepsis Recent Fever Within 48 Hours Sepsis New/Unexplained Change in Mental Status Sepsis Action Taken by Nursing 09/05/25 00:21 09/05/25 00:23 09/05/25 00:26 Temperature Temperature Source Pulse Rate 70 Pulse Rate [Forehead] Pulse Rate from SpO2 Sensor Pulse Rhythm [Forehead] Respiratory Rate 19 Respiratory Effort / Characteristics Respiratory Depth Blood Pressure 127/33 L 130/34 L Blood Pressure [Right Arm] Blood Pressure Mean 53 63 Blood Pressure Mean [Right Arm] Blood Pressure Position [Right Arm] Pulse Oximetry Oxygen Delivery Method Oxygen Flow Rate Sepsis Recent Fever Within 48 Hours Sepsis New/Unexplained Change in Mental Status Sepsis Action Taken by Nursing 09/05/25 00:26 09/05/25 00:29 09/05/25 00:31 Temperature Temperature Source Pulse Rate 70 Pulse Rate [Forehead] Pulse Rate from SpO2 Sensor 66 Pulse Rhythm [Forehead] Respiratory Rate 20 Respiratory Effort / Characteristics Respiratory Depth Blood Pressure 130/34 L 123/33 L Blood Pressure [Right Arm] Blood Pressure Mean 63 83 Blood Pressure Mean [Right Arm] Blood Pressure Position [Right Arm] Pulse Oximetry 95 Oxygen Delivery Method Oxygen Flow Rate Sepsis Recent Fever Within 48 Hours Sepsis New/Unexplained Change in Mental Status Sepsis Action Taken by Nursing 09/05/25 00:37 Temperature 34.0 C L Temperature Source Reynoso Cath ( Temp Sensing) Pulse Rate Pulse Rate [Forehead] 70 Pulse Rate from SpO2 Sensor Pulse Rhythm [Forehead] Regular Respiratory Rate 19 Respiratory Effort / Characteristics Non-Labored Spontaneous Respiratory Depth Normal Blood Pressure Blood Pressure [Right Arm] 134/31 L Blood Pressure Mean Blood Pressure Mean [Right Arm] 65 Blood Pressure Position [Right Arm] Lying Pulse Oximetry Oxygen Delivery Method Non-rebreather Oxygen Flow Rate 15 Sepsis Recent Fever Within 48 Hours Sepsis New/Unexplained Change in Mental Status Sepsis Action Taken by Nursing Laboratory Data 09/05/25 04:42 09/05/25 10:57 Lab Results 09/04/25 09/04/25 09/04/25 Range/Units 23:00 23:04 23:11 WBC 14.76 H (4.8-10.8) K/ul RBC 3.17 L (4.20-5.40) M/uL Hgb 8.0 L (12.0-16.0) g/dl POC Hgb 9.2 L (12.0-16.0) g/dl Hct 26.7 L (37.0-47.0) % POC Hct 27 L (37-47) % MCV 84.2 (80.0-100.0) fL MCH 25.2 (25.0-34.0) pg MCHC 30.0 L (32.0-36.0) g/dL RDW Std Deviation 50.3 H (36.4-46.3) fL RDW Coeff of Amara 16.9 H (11.5-14.5) % Plt Count 522 H (130-400) K/uL MPV 9.8 (9.4-12.4) fL Immature Gran % (Auto) 0.9 % Neut % (Auto) 81.8 % Lymph % (Auto) 10.9 % Trinity % (Auto) 6.2 % Eos % (Auto) 0.1 % Baso % (Auto) 0.1 % Neut # (Auto) 12.07 H (1.40-6.50) K/uL Lymph # (Auto) 1.61 (1.20-3.40) K/uL Trinity # (Auto) 0.91 H (0.11-0.59) K/uL Eos # (Auto) 0.01 (0.00-0.50) K/uL Baso # (Auto) 0.02 (0.00-0.20) K/uL Immature Gran # (Auto) 0.14 (0.01-0.20) K/uL Absolute Nucleated RBC 0.05 (0.00-0.12) K/uL Nucleated RBC % (auto) 0.3 % Specimen Type Sample Site POC pH (7.35-7.45) POC pCO2 (35-46) mmHg POC pO2 (80-95) mmHg POC HCO3 (19-24) mmol/L POC Base Excess (-9-1.8) mmol/L ABG pH (Temp Correct) (7.35-7.45) ABG pCO2 (Temp Corrct (35-46) mmHg POC ABG pO2 at Pt Temp POC ABG O2 Sat (90-95) % Davdi Test O2 Delivery Device POC FiO2 % POC Sodium 130 L (135-144) mmol/L Sodium 134 L (136-145) mmol/L POC Potassium 6.8 H* (3.3-5.0) mmol/L Potassium 6.4 H* (3.5-5.1) mmol/L POC Chloride 108 (101-112) mmol/L Chloride 99 (98-107) mmol/L Carbon Dioxide 12 L (21-32) mmol/L POC Total CO2 11 L (24-31) mmol/L Anion Gap 23 H (3-11) POC Anion Gap 18.0 (16-25) mmol/L POC BUN 74 H (7-18) mg/dl BUN 75 H (6-23) mg/dl Creatinine 2.55 H (0.6-1.2) mg/dl POC Creatinine 2.8 H (0.6-1.3) mg/dl Est Cr Clr Drug Dosing 13.3 ml/min eGFR 18.41 BUN/Creatinine Ratio 29.4 H (10-20) Glucose 76 (70-99(Fasting)) mg/dl POC Glucose (70-99) mg/dl POC Glucose (other) 81 (70-99) mg/dl Calcium 8.7 (8.6-10.3) mg/dl POC Ioniz Calcium Raymond 0.85 L (1.12-1.32) mmol/l Magnesium 4.6 H (1.7-2.4) mg/dl Total Bilirubin 0.5 (0.2-1.0) mg/dl AST 34 (13-39) U/L ALT 27 (7-52) U/L Alkaline Phosphatase 310 H (34-104) U/L Troponin I High Sens 151.6 H* (0-14) pg/ml Total Protein 6.9 (6.0-8.3) gm/dl Albumin 3.0 L (3.4-5.0) gm/dl Globulin 3.9 (2.5-4.0) gm/dl Albumin/Globulin Ratio 0.8 L (0.9-2) TSH 5.501 H (0.300-4.500) uIu/ml Free T4 1.62 H (0.61-1.60) ng/dl Random Cortisol 49.35 mcg/dl 09/04/25 09/04/25 09/04/25 Range/Units 23:19 23:41 23:53 WBC (4.8-10.8) K/ul RBC (4.20-5.40) M/uL Hgb (12.0-16.0) g/dl POC Hgb 7.5 L 9.5 L (12.0-16.0) g/dl Hct (37.0-47.0) % POC Hct 22 L 28 L (37-47) % MCV (80.0-100.0) fL MCH (25.0-34.0) pg MCHC (32.0-36.0) g/dL RDW Std Deviation (36.4-46.3) fL RDW Coeff of Amara (11.5-14.5) % Plt Count (130-400) K/uL MPV (9.4-12.4) fL Immature Gran % (Auto) % Neut % (Auto) % Lymph % (Auto) % Trinity % (Auto) % Eos % (Auto) % Baso % (Auto) % Neut # (Auto) (1.40-6.50) K/uL Lymph # (Auto) (1.20-3.40) K/uL Trinity # (Auto) (0.11-0.59) K/uL Eos # (Auto) (0.00-0.50) K/uL Baso # (Auto) (0.00-0.20) K/uL Immature Gran # (Auto) (0.01-0.20) K/uL Absolute Nucleated RBC (0.00-0.12) K/uL Nucleated RBC % (auto) % Specimen Type Arterial Sample Site L Radial POC pH 7.33 L (7.35-7.45) POC pCO2 19 L (35-46) mmHg POC pO2 366 H (80-95) mmHg POC HCO3 10 L (19-24) mmol/L POC Base Excess -16.0 L (-9-1.8) mmol/L ABG pH (Temp Correct) 7.326 L (7.35-7.45) ABG pCO2 (Temp Corrct 19 L (35-46) mmHg POC ABG pO2 at Pt Temp 366 POC ABG O2 Sat 100.0 H (90-95) % David Test Pass O2 Delivery Device NonRb Mask POC FiO2 100 % POC Sodium 132 L 132 L (135-144) mmol/L Sodium (136-145) mmol/L POC Potassium 5.9 H 6.4 H* (3.3-5.0) mmol/L Potassium (3.5-5.1) mmol/L POC Chloride 106 (101-112) mmol/L Chloride (98-107) mmol/L Carbon Dioxide (21-32) mmol/L POC Total CO2 10 L 14 L (24-31) mmol/L Anion Gap (3-11) POC Anion Gap 20.0 (16-25) mmol/L POC BUN 69 H (7-18) mg/dl BUN (6-23) mg/dl Creatinine (0.6-1.2) mg/dl POC Creatinine 2.5 H (0.6-1.3) mg/dl Est Cr Clr Drug Dosing ml/min eGFR BUN/Creatinine Ratio (10-20) Glucose (70-99(Fasting)) mg/dl POC Glucose 88 (70-99) mg/dl POC Glucose (other) 92 (70-99) mg/dl Calcium (8.6-10.3) mg/dl POC Ioniz Calcium Raymond 0.95 L (1.12-1.32) mmol/l Magnesium (1.7-2.4) mg/dl Total Bilirubin (0.2-1.0) mg/dl AST (13-39) U/L ALT (7-52) U/L Alkaline Phosphatase (34-104) U/L Troponin I High Sens (0-14) pg/ml Total Protein (6.0-8.3) gm/dl Albumin (3.4-5.0) gm/dl Globulin (2.5-4.0) gm/dl Albumin/Globulin Ratio (0.9-2) TSH (0.300-4.500) uIu/ml Free T4 (0.61-1.60) ng/dl Random Cortisol mcg/dl 09/05/25 Range/Units 00:25 WBC (4.8-10.8) K/ul RBC (4.20-5.40) M/uL Hgb (12.0-16.0) g/dl POC Hgb (12.0-16.0) g/dl Hct (37.0-47.0) % POC Hct (37-47) % MCV (80.0-100.0) fL MCH (25.0-34.0) pg MCHC (32.0-36.0) g/dL RDW Std Deviation (36.4-46.3) fL RDW Coeff of Amara (11.5-14.5) % Plt Count (130-400) K/uL MPV (9.4-12.4) fL Immature Gran % (Auto) % Neut % (Auto) % Lymph % (Auto) % Trinity % (Auto) % Eos % (Auto) % Baso % (Auto) % Neut # (Auto) (1.40-6.50) K/uL Lymph # (Auto) (1.20-3.40) K/uL Trinity # (Auto) (0.11-0.59) K/uL Eos # (Auto) (0.00-0.50) K/uL Baso # (Auto) (0.00-0.20) K/uL Immature Gran # (Auto) (0.01-0.20) K/uL Absolute Nucleated RBC (0.00-0.12) K/uL Nucleated RBC % (auto) % Specimen Type Sample Site POC pH (7.35-7.45) POC pCO2 (35-46) mmHg POC pO2 (80-95) mmHg POC HCO3 (19-24) mmol/L POC Base Excess (-9-1.8) mmol/L ABG pH (Temp Correct) (7.35-7.45) ABG pCO2 (Temp Corrct (35-46) mmHg POC ABG pO2 at Pt Temp POC ABG O2 Sat (90-95) % David Test O2 Delivery Device POC FiO2 % POC Sodium (135-144) mmol/L Sodium (136-145) mmol/L POC Potassium (3.3-5.0) mmol/L Potassium (3.5-5.1) mmol/L POC Chloride (101-112) mmol/L Chloride (98-107) mmol/L Carbon Dioxide (21-32) mmol/L POC Total CO2 (24-31) mmol/L Anion Gap (3-11) POC Anion Gap (16-25) mmol/L POC BUN (7-18) mg/dl BUN (6-23) mg/dl Creatinine (0.6-1.2) mg/dl POC Creatinine (0.6-1.3) mg/dl Est Cr Clr Drug Dosing ml/min eGFR BUN/Creatinine Ratio (10-20) Glucose (70-99(Fasting)) mg/dl POC Glucose 183 H (70-99) mg/dl POC Glucose (other) (70-99) mg/dl Calcium (8.6-10.3) mg/dl POC Ioniz Calcium Raymond (1.12-1.32) mmol/l Magnesium (1.7-2.4) mg/dl Total Bilirubin (0.2-1.0) mg/dl AST (13-39) U/L ALT (7-52) U/L Alkaline Phosphatase (34-104) U/L Troponin I High Sens (0-14) pg/ml Total Protein (6.0-8.3) gm/dl Albumin (3.4-5.0) gm/dl Globulin (2.5-4.0) gm/dl Albumin/Globulin Ratio (0.9-2) TSH (0.300-4.500) uIu/ml Free T4 (0.61-1.60) ng/dl Random Cortisol mcg/dl Administered Medications Albuterol (Albut/Ipratrop 3mg/0.5mg Neb 3 Ml Vial) 3 ml NEB Q2H PRN; Protocol PRN Reason: dyspnea Stop: 10/05/25 00:33 Last Admin: 09/05/25 12:40 Dose: 3 ml Documented By: JORDEN Aspirin (Aspirin 81 Mg Ectab) 81 mg PO DAILY KRISTAN Stop: 10/05/25 08:59 Last Admin: 09/05/25 08:30 Dose: 81 mg Documented By: LINDA Calcium Carbonate (Calcium Carbonate 500 Mg Chewable Tab) 1,500 mg PO BID PRN PRN Reason: Indigestion Stop: 10/05/25 13:52 Last Admin: 09/05/25 13:59 Dose: 1,500 mg Documented By: LINDA Docusate Sodium (Docusate Sodium 100 Mg Cap) 100 mg PO BID KRISTAN Stop: 10/05/25 08:59 Last Admin: 09/05/25 08:43 Dose: Not Given Documented By: LINDA Pantoprazole Sodium (Protonix) 40 mg in 10 mls @ 5 mls/min IV DAILY KRISTAN Stop: 10/05/25 08:59 Last Admin: 09/05/25 08:07 Dose: 5 mls/min Documented By: LINDA Acetaminophen (Ofirmev) 1,000 mg in 100 mls @ 400 mls/hr IV Q8H PRN PRN Reason: Pain or Fever Stop: 09/08/25 02:16 Last Infusion: 09/05/25 03:13 Dose: Infused Documented By: [id number] Admin: 09/05/25 03:01 Dose: 400 mls/hr Documented By: [id number] Thiamine HCl 200 mg/ Sodium (Chloride) 52 mls @ 210 mls/hr IV QAM [facility] Stop: 10/05/25 08:59 Last Infusion: 09/05/25 08:40 Dose: Infused Documented By: Admin: 09/05/25 08:07 Dose: 210 mls/hr Documented By: LINDA Parenteral Electrolytes (Plasma-Lyte A Ph 7.4) 1,000 mls @ 175 mls/hr IV .Q5H43M [facility] Stop: 09/08/25 05:29 Last Admin: 09/05/25 17:09 Dose: 175 mls/hr Documented By: Infusion: 09/05/25 17:08 Dose: Infused Documented By: Admin: 09/05/25 11:25 Dose: 175 mls/hr Documented By: Infusion: 09/05/25 11:17 Dose: Infused Documented By: Admin: 09/05/25 05:34 Dose: 175 mls/hr Documented By: [id number] Insulin Aspart (Insulin Aspart Per Unit Charge) 0 units SC Q6 [facility] Stop: 10/05/25 11:59 Last Admin: 09/05/25 18:24 Dose: Not Given Documented By: Admin: 09/05/25 13:04 Dose: Not Given Documented By: LINDA Ondansetron HCl (Ondansetron Inj 2 Mg/Ml 2 Ml Vial) 4 mg IV Q6H PRN PRN Reason: Nausea And Vomiting Stop: 10/05/25 09:34 Last Admin: 09/05/25 09:40 Dose: 4 mg Documented By: LINDA Vitamin D (Cholecalciferol 25 Mcg (1000 Units) Tab) 25 mcg PO DAILY [facility] Stop: 10/05/25 08:59 Last Admin: 09/05/25 08:30 Dose: 25 mcg Documented By: LINDA Discontinued Medications Albuterol (Albut/Ipratrop 3mg/0.5mg Neb 3 Ml Vial) Confirm Administered Dose 3 ml .ROUTE .STK-MED ONE Stop: 09/04/25 23:23 Last Admin: 09/04/25 23:41 Dose: 3 ml Documented By: TALYAW Atropine Sulfate (Atropine Sulfate 0.1 Mg/Ml 10ml Syr) Confirm Administered Dose 1 mg IV .STK-MED ONE Stop: 09/04/25 22:53 Last Admin: 09/04/25 23:42 Dose: Not Given Documented By: ASW Calcium Gluconate (Calcium Gluconate 1000 Mg/60 Ml Nss) Confirm Administered Dose 1,000 mg IV .STK-MED ONE Stop: 09/04/25 23:23 Last Admin: 09/04/25 23:41 Dose: 1,000 mg Documented By: ASW Dextrose (Dextrose 10% 250 Ml Bag) Confirm Administered Dose 250 ml IV .STK-MED ONE Stop: 09/04/25 23:25 Last Admin: 09/04/25 23:41 Dose: 250 ml Documented By: ASW Dextrose (Dextrose 10% 250 Ml Bag) 250 ml IV NOW STA Stop: 09/04/25 23:57 Last Admin: 09/05/25 00:07 Dose: 250 ml Documented By: PAG Sodium Chloride (Nss) 500 mls @ 999 mls/hr IV .Q31M ONE Stop: 09/04/25 23:31 Last Infusion: 09/05/25 00:35 Dose: Infused Documented By: Admin: 09/04/25 23:41 Dose: 999 mls/hr Documented By: ASW Sodium Chloride (Nss) 1,000 mls @ 999 mls/hr IV .Q1H1M ONE Stop: 09/05/25 00:56 Last Infusion: 09/05/25 00:25 Dose: Infused Documented By: Admin: 09/05/25 00:14 Dose: 999 mls/hr Documented By: PAG Calcium Chloride 1,000 mg/ (Dextrose) 60 mls @ 240 mls/hr IV NOW STA Stop: 09/05/25 00:10 Last Infusion: 09/05/25 00:39 Dose: Infused Documented By: Admin: 09/05/25 00:22 Dose: 240 mls/hr Documented By: PAG Sodium Bicarbonate 150 meq/ (Dextrose) 1,150 mls @ 175 mls/hr IV .Q6H35M KRISTAN Stop: 09/08/25 00:14 Last Infusion: 09/05/25 05:34 Dose: Infused Documented By: [id number] Admin: 09/05/25 00:50 Dose: 175 mls/hr Documented By: PAG Parenteral Electrolytes (Plasma-Lyte A Ph 7.4) 1,000 mls @ 999 mls/hr IV .Q1H1M ONE Stop: 09/05/25 01:07 Last Admin: 09/05/25 00:28 Dose: Not Given Documented By: PAG Sodium Chloride (Nss) 1,000 mls @ 999 mls/hr IV .Q1H1M ONE Stop: 09/05/25 01:08 Last Admin: 09/05/25 00:35 Dose: Not Given Documented By: BREANNE Pantoprazole Sodium (Protonix) 40 mg in 10 mls @ 5 mls/min IV NOW ONE Stop: 09/05/25 00:35 Last Admin: 09/05/25 00:50 Dose: 5 mls/min Documented By: BREANNE Norepinephrine Bitartrate (Levophed/D5w) 4 mg in 250 mls @ 0 mls/hr IV .Q0M KRISTAN; Protocol Stop: 10/05/25 01:44 Last Titration: 09/05/25 09:41 Dose: Infused Documented By: LINDA Co-signed By: AMS Titration: 09/05/25 06:45 Dose: 0 mcg/kg/min, 0 mls/hr Documented By: [id number] Co-signed By: LLP Titration: 09/05/25 06:19 Dose: 0.01 mcg/kg/min, 1.8 mls/hr Documented By: [id number] Co-signed By: LLP Titration: 09/05/25 01:45 Dose: 0.03 mcg/kg/min, 5.5 mls/hr Documented By: [id number] Co-signed By: LLP Admin: 09/05/25 01:20 Dose: 0.05 mcg/kg/min, 9.2 mls/hr Documented By: [id number] Co-signed By: CATHERINE Thiamine HCl 300 mg/ Sodium (Chloride) 53 mls @ 210 mls/hr IV NOW STA Stop: 09/05/25 02:32 Last Infusion: 09/05/25 02:59 Dose: Infused Documented By: [id number] Admin: 09/05/25 02:45 Dose: 210 mls/hr Documented By: [id number] Parenteral Electrolytes (Plasma-Lyte A Ph 7.4) 500 mls @ 999 mls/hr IV .Q31M ONE Stop: 09/05/25 03:41 Last Infusion: 09/05/25 03:49 Dose: Infused Documented By: [id number] Admin: 09/05/25 03:17 Dose: 999 mls/hr Documented By: [id number] Insulin Human Regular 250 (units/ Sodium Chloride) 250 mls @ 0 mls/hr IV .Q0M KRISTAN; Protocol Stop: 10/05/25 03:14 Last Titration: 09/05/25 09:41 Dose: Infused Documented By: LINDA Co-signed By: AMS Titration: 09/05/25 06:25 Dose: 0 units/hr, 0 mls/hr Documented By: [id number] Co-signed By: SKRichard Titration: 09/05/25 06:00 Dose: 0.6 units/hr, 0.6 mls/hr Documented By: [id number] Co-signed By: LLP Titration: 09/05/25 05:30 Dose: 0.7 units/hr, 0.7 mls/hr Documented By: [id number] Co-signed By: LLP Titration: 09/05/25 05:00 Dose: 0 units/hr, 0 mls/hr Documented By: [id number] Co-signed By: CRISTY Admin: 09/05/25 03:51 Dose: 1.2 units/hr, 1.2 mls/hr Documented By: [id number] Co-signed By: SKRichard Piperacillin Sod/Tazobactam Sod (Zosyn) 4.5 gm in 100 mls @ 200 mls/hr IV NOW STA; Protocol Stop: 09/05/25 03:59 Last Infusion: 09/05/25 04:57 Dose: Infused Documented By: [id number] Admin: 09/05/25 04:00 Dose: 200 mls/hr Documented By: [id number] Daptomycin 350 mg/ Syringe 7 mls @ 3.5 mls/min IV Q48H KRISTAN; Protocol Stop: 09/07/25 04:59 Last Admin: 09/05/25 04:25 Dose: 3.5 mls/min Documented By: [id number] Calcium Gluconate () 1,000 mg in 60 mls @ 240 mls/hr IV Q15M KRISTAN Stop: 09/05/25 08:14 Last Infusion: 09/05/25 09:05 Dose: Infused Documented By: Admin: 09/05/25 08:29 Dose: 240 mls/hr Documented By: Infusion: 09/05/25 08:20 Dose: Infused Documented By: Admin: 09/05/25 08:05 Dose: 240 mls/hr Documented By: LINDA Levofloxacin/Dextrose (Levaquin/D5w) 750 mg in 150 mls @ 100 mls/hr IV NOW ONE Stop: 09/05/25 11:29 Last Infusion: 09/05/25 11:25 Dose: Infused Documented By: Admin: 09/05/25 09:51 Dose: 100 mls/hr Documented By: LINDA Insulin Aspart (Insulin Aspart Per Unit Charge) 0 units SC ACHS KRISTAN Stop: 10/05/25 07:29 Last Admin: 09/05/25 08:06 Dose: Not Given Documented By: LINDA Miscellaneous (Moderate Stress Level ) 1 each N/A ONE ONE Stop: 09/05/25 03:14 Last Admin: 09/05/25 04:08 Dose: 1 each Documented By: [id number] Miscellaneous (Insulin Protocol Goal Range ) 1 each N/A ONE ONE Stop: 09/05/25 03:14 Last Admin: 09/05/25 04:07 Dose: 1 each Documented By: [id number] Norepinephrine Bitartrate (Norepinephrine/D5w 4 Mg/250 Ml) Confirm Administered Dose 4 mg IV .STK-MED ONE Stop: 09/04/25 23:12 Last Admin: 09/04/25 23:40 Dose: 4 mg Documented By: BALA Co-signed By: BREANNE Sodium Bicarbonate (Sodium Bicarb 8.4% Inj 50 Meq/50 Ml Syr) Confirm Administered Dose 50 meq IV .STK-MED ONE Stop: 09/04/25 23:32 Last Admin: 09/04/25 23:41 Dose: 50 meq Documented By: BALA Sodium Bicarbonate (Sodium Bicarb 8.4% Inj 50 Meq/50 Ml Syr) 50 meq IV NOW STA Stop: 09/05/25 00:07 Last Admin: 09/05/25 00:24 Dose: Not Given Documented By: BREANNE Sodium Bicarbonate (Sodium Bicarb 8.4% Inj 50 Meq/50 Ml Syr) Confirm Administered Dose 50 meq IV .STK-MED ONE Stop: 09/05/25 00:08 Last Admin: 09/05/25 00:13 Dose: 50 meq Documented By: BREANNE Discharge Plan Visit Data Chief Complaint: Cardiac Assessment Stated Complaint: LOW HEART RATE, FALL ED Provider: Britt Mulligan Discharge Problem: Symptomatic bradycardia, Acute hyperkalemia, Hypocalcemia Patient Disposition: Admitted As Inpatient Condition: Critical Discharge Instructions Interventions: ED Discharge Assessment Last Done: 09/05/25 01:36
--- NOTE | 2025-09-05 19:48 | Electrocardiogram Report ---
Test Reason : Blood Pressure : */* mmHG Vent. Rate : 42 BPM Atrial Rate : * BPM P-R Int : * ms QRS Dur : 82 ms QT Int : 604 ms P-R-T Axes : * 92 75 degrees QTcB Int : 505 ms Junctional bradycardia Rightward axis Septal infarct (cited on or before 05-Sep-2025) Abnormal ECG When compared with ECG of 05-Sep-2025 07:47, No significant change was found Confirmed by Asher Veliz ([id number]) on 09/05/2025 7:48:06 PM Referred By: REFERRED SELF Confirmed By: Asher Veliz
[2025-09-05] MEDS: HEPARIN SOD 5,000 UNIT/0.5 ML VIAL SQ SCH (20:33)
[2025-09-05 23:06] LABS: A calco-baum cmplx NotReported Not Detected (NotDetected); Bact fragilis Not Reported Not Detected (NotDetected); Blood Culture Id Panel See PCR Comment (NotDetected); C auris Not Reported Not Detected (NotDetected); Calbicans Not Reported Not Detected (NotDetected); Candida glabrata Not Reported Not Detected (NotDetected); Candida krusei Not Reported Not Detected (NotDetected); Cneoformans/gatti Not Reported Not Detected (NotDetected); Cparapsilosis Not Reported Not Detected (NotDetected); Ctropicalis Not Reported Not Detected (NotDetected); E cloacae compx Not Reported Not Detected (NotDetected); Efaecalis Not Reported Not Detected (NotDetected); Efaecium Not Reported Not Detected (NotDetected); Enterobacterales Not Reported Not Detected (NotDetected); Escherichia coli Not Reported Not Detected (NotDetected); H influenzae Not Reported Not Detected (NotDetected); K aerogenes Not Reported Not Detected (NotDetected); Koxytoca Not Reported Not Detected (NotDetected); Kpneumoniae grp Not Reported Not Detected (NotDetected); Lmonocyt Not Reported DETECTED (NotDetected); N meningitidis Not Reported Not Detected (NotDetected); P aeruginosa Not Reported Not Detected (NotDetected); Proteus spp Not Reported Not Detected (NotDetected); Salmonella spp Not Reported Not Detected (NotDetected); Staph lugdunensis Not Reported Not Detected (NotDetected); Staph spp. Not Reported Not Detected (NotDetected); Staphaureus Not Reported Not Detected (NotDetected); Staphepi Not Reported Not Detected (NotDetected); Stenmaltophilia Not Reported Not Detected (NotDetected); Strep agal(GrpB) Not Reported Not Detected (NotDetected); Strep pneum Not Reported Not Detected (NotDetected); Strep pyog (GrpA) Not Reported Not Detected (NotDetected); Strep spp Not Reported Not Detected (NotDetected)
[2025-09-06] MEDS: AMPICILLIN 2,000 MG in SODIUM CHLOR 0.9% MINI-B 100 ML IV SCH (00:33)
[2025-09-06 05:27] LABS: Hematocrit (blood only) 24.3 % (37.0-47.0); Hemoglobin 7.8 g/dl (12.0-16.0); Immature Granulocytes # (auto) 0.09 K/uL (0.01-0.20); Immature Granulocytes % (auto) 0.6 %; Mean Corpuscular Hemoglobin 25.8 pg (25.0-34.0); Mean Corpuscular Volume 80.5 fL (80.0-100.0); Platelet Count 445 K/uL (130-400); RDW Standard Deviation 47.0 fL (36.4-46.3); Red Blood Count 3.02 M/uL (4.20-5.40); White Blood Count 15.12 K/ul (4.8-10.8)
[2025-09-06 05:46] LABS: Alanine Aminotransferase 45.0 U/L (7-52); Albumin Globulin Ratio 0.8 (0.9-2); Albumin Level 2.6 gm/dl (3.4-5.0); Alkaline Phosphatase 289.0 U/L (34-104); Anion Gap 14.0 (3-11); Bilirubin,Total 0.4 mg/dl (0.2-1.0); Blood Urea Nitrogen 69.0 mg/dl (6-23); Calcium 8.5 mg/dl (8.6-10.3); Carbon Dioxide 24.0 mmol/L (21-32); Chloride 98.0 mmol/L (98-107); Creatinine Clr Calc Pharmacy 14.8 ml/min; Globulin 3.3 gm/dl (2.5-4.0); Glucose 67.0 mg/dl (70-99(Fasting)); Magnesium 3.7 mg/dl (1.7-2.4); Potassium 5.0 mmol/L (3.5-5.1); Sodium 136.0 mmol/L (136-145); Total Protein 5.9 gm/dl (6.0-8.3)
[2025-09-06 05:49] LABS: Ovalocytes 1+; Polychromasia 2+
[2025-09-06 06:03] LABS: INR 1.4 (0.9-1.1); Partial Thromboplastin Time 28 Seconds (21-31); Prothrombin Time 14.2 Seconds (9.0-12.0)
[2025-09-06 06:06] LABS: Ferritin 201.7 ng/ml (8-388)
[2025-09-06 06:21] LABS: Folate (Folic Acid),Ser orPlas 6.98 ng/ml (>5.38)
[2025-09-06 06:22] LABS: Vitamin B12 996.0 pg/ml (180-914)
--- NOTE | 2025-09-06 08:34 | Hospitalist Progress Note ---
Date of Service September 06, 2025 Assessment & Plan (1) Shock: (2) Bradycardia: (3) Hypothermia: (4) Elevated troponin: (5) Metabolic acidosis: Plan The patient is a 80-year-old female who follows with physicians at [facility]. 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 Records have been requested through [facility], and will be addressed when they arrive. The patient herself was not able to contribute to HPI or review of systems due to acute physical and mental state. The patient presented to the emergency department with altered mentation, severe bradycardia, hypothermia, hypoglycemia, several electrolyte disturbances, metabolic acidosis, and COPD exacerbation. Her heart rate was in the 20s upon arrival, which point she was immediately externally paced and started on Levophed infusion by the ED, while waiting for laboratory evaluation to return. Blood pressure upon arrival was 70s/50s, and temperature was 31.7. Patient was placed on Andrew hugger. Correction of laboratory abnormalities left to the ICU consult team saw the filippo ent in the ED. She was transcutaneous paced with capture at 40 N/A, at a rate of 70. Laboratories revealed a bicarb of 12, potassium 6.4, gap 23, magnesium 4.6. She was given 1 L crystalloid, 1 amp of bicarb, 1 g calcium gluconate, 1 g of calcium chloride. She was given 250 mL of D10. She received an additional amp of bicarbonate 50 mill equivalents 8.4%, then started on a bicarb infusion and dextrose at 175 mL/h. She received another liter of normal saline. Patient had improvement in heart rate to the 80-90s, and systolic blood pressure up to 120. She was transferred to the ICU with further treatment to be performed there. #Shock - resolved #Bradycardia - initially externally paced and on levophed- currently discontinued - pt now off of pressors, HR still in the 30s to 40s, but BP improved - TSH: 5.501 - Trop: 151.6 > 162 (likely demand) - cardiology on board - recs possible PPM placement #Possible sepsis - initially on zosyn / Dapto - currently on ampicillin - BCx: growing listeria , will repeat - cont ampicillin, will requst ID eval #CAD #AVR #Thoracic aortic aneursym - s/p repair - cont aspirin #Anion gap metabolic acidosis #Hyperkalemia - resolved #BRITTON on CKD - Cr: 1.39 (07/18/25) - worsening Cr due to shock, trending up, Na trending down - Cardiology recs Dopamine or Isoproterenol if pt is hemodynamically unstable or urine output is declining , ICU team made aware #HTN - home meds: amlodipine #HLD - atorvastatin #GERD - cont ppi #Hypothermia - on admission T: 31.7C - s/p andrew graham Temearl much improved Admission and Anticipated Discharge Date Admission Date: September 05, 2025 Subjective Pt is currently asymptomatic with stable BP. HR remains in the 30s to 40s. Her renal function is worsening as well as her Na. Pt reports that she met with cardiology this morning and they are recommending PPM but she wants to think about it Review of Systems Review of Systems: Comprehensive ROS completed and is otherwise negative. Physical Exam Physical Exam: Gen: no acute distress, lying in bed comfortable HEENT: NC/AT, MMM Lungs: nonlabored breathing, CTAB CVS: [id number], bradycardic Abd: nl bowel sounds, soft, NT / ND : no díaz Ext: no edema Neuro: AAOx3 Psych: calm, cooperative Results & Data Results & Data Vital Signs (Past 12 Hours) Vital Signs Temp Pulse Resp BP Pulse Ox O2 Del Method O2 Flow Rate 09/06/25 07:29 Nasal Cannula 3 09/06/25 07:10 128/43 L 09/06/25 07:09 36.3 C L 38 L 19 94 09/06/25 07:00 126/47 L 09/06/25 06:51 36.2 C L 38 L 20 92 09/06/25 06:50 123/44 L 09/06/25 06:48 36.2 C L 38 L 20 92 09/06/25 06:45 36.3 C L 38 L 20 92 Oxymask 3 09/06/25 06:10 130/44 L 09/06/25 06:00 36.7 C 39 L 24 93 09/06/25 05:50 108/49 L 09/06/25 05:48 36.7 C 40 L 25 H 96 09/06/25 05:15 36.7 C 39 L 23 90 09/06/25 05:03 36.8 C 39 L 21 94 09/06/25 04:36 36.7 C 40 L 22 88 L 09/06/25 03:33 36.6 C 40 L 20 94 09/06/25 03:31 119/55 L 09/06/25 03:21 136/52 L 09/06/25 03:15 36.7 C 40 L 24 92 09/06/25 03:10 146/63 H 09/06/25 03:09 36.7 C 41 L 19 94 09/06/25 03:00 36.7 C 40 L 23 89 L 09/06/25 02:41 108/40 L 09/06/25 02:39 121/40 L 09/06/25 02:39 36.7 C 40 L 20 93 09/06/25 02:33 36.7 C 40 L 21 93 09/06/25 02:00 36.7 C 40 L 20 87 L 09/06/25 01:40 134/51 L 09/06/25 01:30 120/47 L 09/06/25 01:24 36.7 C 40 L 17 88 L 09/06/25 01:20 118/39 L 09/06/25 01:18 36.7 C 40 L 16 95 09/06/25 01:10 117/41 L 09/06/25 01:03 36.6 C 40 L 19 93 09/06/25 01:00 115/46 L 09/06/25 00:57 36.7 C 40 L 19 93 09/06/25 00:50 121/45 L 09/06/25 00:48 36.7 C 40 L 21 92 09/06/25 00:40 114/44 L 09/06/25 00:39 36.7 C 40 L 18 93 09/06/25 00:30 113/48 L 09/06/25 00:27 36.7 C 41 L 18 97 09/06/25 00:21 104/55 L 09/06/25 00:18 36.7 C 41 L 19 95 09/06/25 00:10 118/42 L 09/06/25 00:09 36.8 C 41 L 21 94 09/06/25 00:03 36.7 C 41 L 13 96 09/06/25 00:02 118/42 L 09/05/25 23:59 43 L 09/05/25 23:54 36.7 C 41 L 24 97 09/05/25 23:50 119/47 L 09/05/25 23:45 36.7 C 41 L 24 97 09/05/25 23:40 124/45 L 09/05/25 23:30 117/46 L 09/05/25 23:30 36.8 C 42 L 18 96 09/05/25 23:10 127/47 L 09/05/25 23:03 36.7 C 43 L 17 94 09/05/25 23:00 125/45 L 09/05/25 23:00 125/45 L 09/05/25 23:00 36.7 C 40 L 20 95 09/05/25 22:57 36.7 C 42 L 20 96 09/05/25 22:40 122/43 L 09/05/25 22:39 36.8 C 43 L 22 89 L 09/05/25 22:31 114/43 L 09/05/25 22:30 36.8 C 42 L 23 90 09/05/25 22:21 122/44 L 09/05/25 22:21 36.8 C 42 L 24 93 09/05/25 22:10 116/49 L 09/05/25 22:09 36.8 C 43 L 21 95 09/05/25 22:01 122/51 L 09/05/25 21:51 36.8 C 43 L 21 89 L 09/05/25 21:50 117/53 L 09/05/25 21:45 36.8 C 43 L 19 91 09/05/25 21:40 124/60 09/05/25 21:33 36.8 C 43 L 17 93 09/05/25 21:30 117/43 L 09/05/25 21:30 36.8 C 42 L 22 92 09/05/25 21:20 102/65 09/05/25 21:15 36.8 C 43 L 21 92 09/05/25 21:10 112/42 L 09/05/25 21:00 18 Nasal Cannula 3 09/05/25 20:51 36.7 C 43 L 21 90 09/05/25 20:50 102/53 L 09/05/25 20:48 36.7 C 43 L 19 92 09/05/25 20:40 116/46 L 09/05/25 20:30 115/47 L PG Care Time/CCT Total # of Minutes Spent Total Time Spent with Patient: Total time spent is greater than 50% in coordination of care (as documented) at patient's floor/unit and/or counseling patient: Coding Level of Care Code 33367 SUB INP/OBS CARE 2/35MIN Diagnoses Shock R57.9 Bradycardia R00.1 Hypothermia T68.XXXA Elevated troponin R79.89 Metabolic acidosis E87.20
--- NOTE | 2025-09-06 09:07 | Critical Care Progress Note ---
Date of Service September 06, 2025 Assessment & Plan (1) Shock: (2) Bradycardia: (3) Hypothermia: (4) Hypoglycemia: (5) CKD stage 3b, GFR 30-44 ml/min: (6) Electrolyte abnormality: (7) Metabolic acidosis: (8) COPD (chronic obstructive pulmonary disease): Plan Reason Critically Ill: 80 YOF presents bradycardic, hypothermic with multiple electrolyte abnormalities and AGAP metabolic acidosis. She is requiring TCP and Vasopressor support at this time. Neuro - Metabolic encephalopathy: Resolved Cardiac - Shock: Resolved, bradycardia, elevated HsCTNI, HX: CAD, AAA, AVR, HLD, HTN - Shock multifactorial: Resolved - Lactic acid acidosis resolved - Underlying Listeria bacteremia: Repeat blood cultures ordered for tomorrow morning - Bradycardia-slight improvement from previous complete heart block with junctional bradycardia yesterday - Echocardiogram reviewed -Cardiology consult reviewed Respiratory - No acute need- HX previous smoker, COPD, lung cancer with RML resection-squamous cell - Continue with ADAN - O2 sats 88-92% GI - Diarrhea: Resolved - Likely had contribution from Listeria bacteremia RENAL/LYTES - BRITTON on CKD III B, improved - Hyperkalemia-resolved - HyperMag-improving: Current serum 3.7 - HypoCalcemia-ionized calcium improved - AGAP Metabolic Acidosis-improving - No acute need - May discontinue Díaz ENDO - Hypoglycemia - improved - TSH normal HEME - Anemia, thrombocytosis, HX: Lung cancer - likely related to poor nutritional intake and CKD- will check basic anemia labs in am - no external sources of blood loss noted - no GI loss apprecaited - Thrombocytosis likely secondary to anemia - - Health screenings reportedly up to date by patient and daughter- yearly CT scans of chest and AAA, Colonoscopy ~2 years ago with bowel resection secondary to polyps, not sure if she has had EGD. ID -Listeria bacteremia - Ampicillin and renally adjusted Bactrim - MRSA nares positive- no concern for pulm source, no definite soft tissue source - Repeat blood culture x2 pending for tomorrow morning LINES/IV ACCESS - PIV x3, díaz Continue use of these lines DVT PROPHYLAXIS - SCDs DISPO: Stable for downgrade out of ICU Admission and Anticipated Discharge Date Admission Date: September 05, 2025 Subjective Reports feeling generally wore out but improved compared to prior day. Eating breakfast during my evaluation Physical Exam Physical Exam: General: Alert. nontoxic. Skin: Warm, dry, Head: Atraumatic Ears, nose, mouth and throat: airway patent Cardiovascular: Normal peripheral perfusion Respiratory: no respiratory distress Gastrointestinal: Non distended Musculoskeletal: No deformity Results & Data Results & Data Vital Signs (Past 12 Hours) Vital Signs Temp Pulse Resp BP Pulse Ox O2 Del Method O2 Flow Rate 09/06/25 08:45 36.5 C 39 L 24 92 09/06/25 08:36 36.5 C 65 22 92 09/06/25 08:21 121/42 L 09/06/25 08:15 36.5 C 38 L 19 94 Nasal Cannula 3 09/06/25 08:10 123/48 L 09/06/25 08:00 119/47 L 09/06/25 07:50 121/45 L 09/06/25 07:42 36.5 C 38 L 19 94 09/06/25 07:41 115/58 L 09/06/25 07:39 36.5 C 38 L 20 93 09/06/25 07:33 36.4 C L 38 L 19 93 09/06/25 07:30 123/43 L 09/06/25 07:29 Nasal Cannula 3 09/06/25 07:10 128/43 L 09/06/25 07:09 36.3 C L 38 L 19 94 09/06/25 07:06 38 L 09/06/25 07:00 126/47 L 09/06/25 06:51 36.2 C L 38 L 20 92 09/06/25 06:50 123/44 L 09/06/25 06:48 36.2 C L 38 L 20 92 09/06/25 06:45 36.3 C L 38 L 20 92 Oxymask 3 09/06/25 06:10 130/44 L 09/06/25 06:00 36.7 C 39 L 24 93 09/06/25 05:50 108/49 L 09/06/25 05:48 36.7 C 40 L 25 H 96 09/06/25 05:15 36.7 C 39 L 23 90 09/06/25 05:03 36.8 C 39 L 21 94 09/06/25 04:36 36.7 C 40 L 22 88 L 09/06/25 03:33 36.6 C 40 L 20 94 09/06/25 03:31 119/55 L 09/06/25 03:21 136/52 L 09/06/25 03:15 36.7 C 40 L 24 92 09/06/25 03:10 146/63 H 09/06/25 03:09 36.7 C 41 L 19 94 09/06/25 03:00 36.7 C 40 L 23 89 L 09/06/25 02:41 108/40 L 09/06/25 02:39 121/40 L 09/06/25 02:39 36.7 C 40 L 20 93 09/06/25 02:33 36.7 C 40 L 21 93 09/06/25 02:00 36.7 C 40 L 20 87 L 09/06/25 01:40 134/51 L 09/06/25 01:30 120/47 L 09/06/25 01:24 36.7 C 40 L 17 88 L 09/06/25 01:20 118/39 L 09/06/25 01:18 36.7 C 40 L 16 95 09/06/25 01:10 117/41 L 09/06/25 01:03 36.6 C 40 L 19 93 09/06/25 01:00 115/46 L 09/06/25 00:57 36.7 C 40 L 19 93 09/06/25 00:50 121/45 L 09/06/25 00:48 36.7 C 40 L 21 92 09/06/25 00:40 114/44 L 09/06/25 00:39 36.7 C 40 L 18 93 09/06/25 00:30 113/48 L 09/06/25 00:27 36.7 C 41 L 18 97 09/06/25 00:21 104/55 L 09/06/25 00:18 36.7 C 41 L 19 95 09/06/25 00:10 118/42 L 09/06/25 00:09 36.8 C 41 L 21 94 09/06/25 00:03 36.7 C 41 L 13 96 09/06/25 00:02 118/42 L 09/05/25 23:59 43 L 09/05/25 23:54 36.7 C 41 L 24 97 09/05/25 23:50 119/47 L 09/05/25 23:45 36.7 C 41 L 24 97 09/05/25 23:40 124/45 L 09/05/25 23:30 117/46 L 09/05/25 23:30 36.8 C 42 L 18 96 09/05/25 23:10 127/47 L 09/05/25 23:03 36.7 C 43 L 17 94 09/05/25 23:00 125/45 L 09/05/25 23:00 125/45 L 09/05/25 23:00 36.7 C 40 L 20 95 09/05/25 22:57 36.7 C 42 L 20 96 09/05/25 22:40 122/43 L 09/05/25 22:39 36.8 C 43 L 22 89 L 09/05/25 22:31 114/43 L 09/05/25 22:30 36.8 C 42 L 23 90 09/05/25 22:21 122/44 L 09/05/25 22:21 36.8 C 42 L 24 93 09/05/25 22:10 116/49 L 09/05/25 22:09 36.8 C 43 L 21 95 09/05/25 22:01 122/51 L 09/05/25 21:51 36.8 C 43 L 21 89 L 09/05/25 21:50 117/53 L 09/05/25 21:45 36.8 C 43 L 19 91 09/05/25 21:40 124/60 09/05/25 21:33 36.8 C 43 L 17 93 09/05/25 21:30 117/43 L 09/05/25 21:30 36.8 C 42 L 22 92 09/05/25 21:20 102/65 09/05/25 21:15 36.8 C 43 L 21 92 09/05/25 21:10 112/42 L Critical Care Results & Data Vital Signs (Past 12 Hours) Vital Signs Temp Pulse Resp BP Pulse Ox O2 Del Method O2 Flow Rate 09/06/25 08:45 36.5 C 39 L 24 92 09/06/25 08:36 36.5 C 65 22 92 09/06/25 08:21 121/42 L 09/06/25 08:15 36.5 C 38 L 19 94 Nasal Cannula 3 09/06/25 08:10 123/48 L 09/06/25 08:00 119/47 L 09/06/25 07:50 121/45 L 09/06/25 07:42 36.5 C 38 L 19 94 09/06/25 07:41 115/58 L 09/06/25 07:39 36.5 C 38 L 20 93 09/06/25 07:33 36.4 C L 38 L 19 93 09/06/25 07:30 123/43 L 09/06/25 07:29 Nasal Cannula 3 09/06/25 07:10 128/43 L 09/06/25 07:09 36.3 C L 38 L 19 94 09/06/25 07:06 38 L 09/06/25 07:00 126/47 L 09/06/25 06:51 36.2 C L 38 L 20 92 09/06/25 06:50 123/44 L 09/06/25 06:48 36.2 C L 38 L 20 92 09/06/25 06:45 36.3 C L 38 L 20 92 Oxymask 3 09/06/25 06:10 130/44 L 09/06/25 06:00 36.7 C 39 L 24 93 09/06/25 05:50 108/49 L 09/06/25 05:48 36.7 C 40 L 25 H 96 09/06/25 05:15 36.7 C 39 L 23 90 09/06/25 05:03 36.8 C 39 L 21 94 09/06/25 04:36 36.7 C 40 L 22 88 L 09/06/25 03:33 36.6 C 40 L 20 94 09/06/25 03:31 119/55 L 09/06/25 03:21 136/52 L 09/06/25 03:15 36.7 C 40 L 24 92 09/06/25 03:10 146/63 H 09/06/25 03:09 36.7 C 41 L 19 94 09/06/25 03:00 36.7 C 40 L 23 89 L 09/06/25 02:41 108/40 L 09/06/25 02:39 121/40 L 09/06/25 02:39 36.7 C 40 L 20 93 09/06/25 02:33 36.7 C 40 L 21 93 09/06/25 02:00 36.7 C 40 L 20 87 L 09/06/25 01:40 134/51 L 09/06/25 01:30 120/47 L 09/06/25 01:24 36.7 C 40 L 17 88 L 09/06/25 01:20 118/39 L 09/06/25 01:18 36.7 C 40 L 16 95 09/06/25 01:10 117/41 L 09/06/25 01:03 36.6 C 40 L 19 93 09/06/25 01:00 115/46 L 09/06/25 00:57 36.7 C 40 L 19 93 09/06/25 00:50 121/45 L 09/06/25 00:48 36.7 C 40 L 21 92 09/06/25 00:40 114/44 L 09/06/25 00:39 36.7 C 40 L 18 93 09/06/25 00:30 113/48 L 09/06/25 00:27 36.7 C 41 L 18 97 09/06/25 00:21 104/55 L 09/06/25 00:18 36.7 C 41 L 19 95 09/06/25 00:10 118/42 L 09/06/25 00:09 36.8 C 41 L 21 94 09/06/25 00:03 36.7 C 41 L 13 96 09/06/25 00:02 118/42 L 09/05/25 23:59 43 L 09/05/25 23:54 36.7 C 41 L 24 97 09/05/25 23:50 119/47 L 09/05/25 23:45 36.7 C 41 L 24 97 09/05/25 23:40 124/45 L 09/05/25 23:30 117/46 L 09/05/25 23:30 36.8 C 42 L 18 96 09/05/25 23:10 127/47 L 09/05/25 23:03 36.7 C 43 L 17 94 09/05/25 23:00 125/45 L 09/05/25 23:00 125/45 L 09/05/25 23:00 36.7 C 40 L 20 95 09/05/25 22:57 36.7 C 42 L 20 96 09/05/25 22:40 122/43 L 09/05/25 22:39 36.8 C 43 L 22 89 L 09/05/25 22:31 114/43 L 09/05/25 22:30 36.8 C 42 L 23 90 09/05/25 22:21 122/44 L 09/05/25 22:21 36.8 C 42 L 24 93 09/05/25 22:10 116/49 L 09/05/25 22:09 36.8 C 43 L 21 95 09/05/25 22:01 122/51 L 09/05/25 21:51 36.8 C 43 L 21 89 L 09/05/25 21:50 117/53 L 09/05/25 21:45 36.8 C 43 L 19 91 09/05/25 21:40 124/60 09/05/25 21:33 36.8 C 43 L 17 93 09/05/25 21:30 117/43 L 09/05/25 21:30 36.8 C 42 L 22 92 09/05/25 21:20 102/65 09/05/25 21:15 36.8 C 43 L 21 92 09/05/25 21:10 112/42 L Lab & Micro Results (Past 24 Hours) RBC 3.12 M/uL (4.20-5.40) L 09/07/25 WBC 15.88 K/ul (4.8-10.8) H 09/07/25 Hgb 7.6 g/dl (12.0-16.0) L 09/07/25 Hct 24.6 % (37.0-47.0) L 09/07/25 MCV 78.8 fL (80.0-100.0) L 09/07/25 MCH 24.4 pg (25.0-34.0) L 09/07/25 MCHC 30.9 g/dL (32.0-36.0) L 09/07/25 RDW Standard Deviation 47.1 fL (36.4-46.3) H 09/07/25 RDW Coefficient of Variation 17.5 % (11.5-14.5) H 09/07/25 Plt Count 383 K/uL (130-400) 09/07/25 MPV 9.5 fL (9.4-12.4) 09/07/25 Nucleated Red Blood Cells % (auto) 0.3 % 09/07 Nucleated RBC Absolute Count (auto) 0.05 K/uL (0.00-0.12) 1 Neutrophils (%) (Auto) 88.5 % 09/07/25 Lymphocytes (%) (Auto) 5.9 % 09/07/25 Monocytes # (Auto) 0.78 K/uL (0.11-0.59) H 09/07/25 Eosinophils # (Auto) 0.00 K/uL (0.00-0.50) 09/07/25 Immature Granulocyte % (Auto) 0.6 % 09/07/25 Neutrophils # (Auto) 14.06 K/uL (1.40-6.50) H 09/07/25 Lymphocytes # (Auto) 0.94 K/uL (1.20-3.40) L 09/07/25 Monocytes # (Auto) 0.78 K/uL (0.11-0.59) H 09/07/25 Eosinophils # (Auto) 0.00 K/uL (0.00-0.50) 09/07/25 Basophils # (Auto) 0.01 K/uL (0.00-0.20) 09/07/25 Immature Granulocyte # (Auto) 0.09 K/uL (0.01-0.20) 5 Polychromasia 1+ 09/07/25 Hypochromasia Present 09/07/25 Na 133 mmol/L (136-145) L 09/07/25 K 4.7 mmol/L (3.5-5.1) 09/07/25 Cl 96 mmol/L (98-107) L 09/07/25 CO2 23 mmol/L (21-32) 09/07/25 Anion Gap 14 (3-11) H 09/07/25 BUN 74 mg/dl (6-23) H 09/07/25 Creatinine 2.34 mg/dl (0.6-1.2) H 09/07/25 BUN/Creatinine Ratio 31.6 (10-20) H 09/07/25 Glu 71 mg/dl (70-99(Fasting)) 09/07/25 Ca 8.6 mg/dl (8.6-10.3) 09/07/25 Total Bilirubin 0.5 mg/dl (0.2-1.0) 09/07/25 AST 86 U/L (13-39) H 09/07/25 ALT 58 U/L (7-52) H 09/07/25 Alkaline Phosphatase 435 U/L (34-104) H 09/07/25 TP 5.7 gm/dl (6.0-8.3) L 09/07/25 Albumin 2.7 gm/dl (3.4-5.0) L 09/07/25 Globulin 3.0 gm/dl (2.5-4.0) 09/07/25 Albumin/Globulin Ratio 0.9 (0.9-2) 09/07/25 Mg 3.7 mg/dl (1.7-2.4) H 09/07/25 04:02 Calcium Level 8.6 mg/dl (8.6-10.3) 09/07/25 04:02 Prothromb Time International Ratio 1.6 (0.9-1.1) H 09/07/25 04 :02 Arterial Blood pH 7.46 (7.35-7.45) H 09/07/25 03:21 Arterial Blood Partial Pressure CO2 33 mmHg (35-46) L 09/07/25 03:21 Arterial Blood Partial Pressure O2 65 mmHg (80-95) L 09/07/25 0 3:21 Arterial Blood HCO3 24 mmol/L (19-24) 09/07/25 03:21 Arterial Blood Base Excess 0.3 mEq/L (-9-1.8) 09/07/25 03:21 Arterial Blood Oxygen Saturation 92.3 % (90-95) 09/07/25 03:21 Blood Gas Oxygen Given 10L 09/07/25 03:21 David Test Pos (Pos) 09/07/25 03:21 Microbiology 09/05/25 02:19 Aerobic Blood Culture - Preliminary Blood Gram positive bacilli Anaerobic Blood Culture - Preliminary Gram positive bacilli 09/05/25 02:19 Aerobic Blood Culture - Preliminary Blood No growth in Aerobic bottle after 24 hours. Anaerobic Blood Culture - Preliminary Gram positive bacilli I & O Totals 24 Hours 09/05/25 09/06/25 09/07/25 06:59 06:59 06:59 Intake Total 2356.860 / 2356.860 3528.834 / 3528.834 1152 / 1152 Output Total 110 / 110 670 / 670 60 / 60 Balance 2246.860 / 2246.860 2858.834 / 2858.834 1092 / 1092 Cumulative 09/04/25 22:33 thru 09/06/25 08:54 Intake Total 7037.694 Output Total 840 Balance 6197.694 RT Ventilator Mngmt (Last Documented) Ventilator Ordered Settings Respiratory Rate 24 09/06/25 08:45 Ventilator - PT Measurements Respiratory Rate 24 Coding Level of Care Code 37837 SUB INP/OBS CARE 3/50MIN Diagnoses Shock R57.9 Bradycardia R00.1 Hypothermia T68.XXXA Hypoglycemia E16.2 CKD stage 3b, GFR 30-44 ml/min N18.32 Electrolyte abnormality E87.8 Metabolic acidosis E87.20 COPD (chronic obstructive pulmonary disease) J44.9
--- NOTE | 2025-09-06 10:14 | Cardiology Progress Note ---
Date of Service September 06, 2025 Assessment & Plan (1) Complete heart block: (2) Junctional bradycardia: (3) Elevated troponin: (4) Tricuspid regurgitation: (5) HTN (hypertension): (6) S/P thoracic aortic aneurysm repair: Plan ASSESSMENT/PLAN: 1. Complete heart block and junctional bradycardia: This seems more likely to be a permanent conduction problem. Clinically she is doing well with reversal of her acidosis and hyperkalemia. However, she continues to have significant conduction disease. Tolerating it well while in bed. Unclear if this could have contributed to her presentation. Nonetheless, I think is likely she will need a permanent pacemaker. I did describe the procedure to the patient today. She wishes to discuss this with her family and primary care physician. Tentatively plan on proceeding on Monday. 2. Elevated troponin: Likely due to demand ischemia as she was quite ill on presentation. No symptoms consistent with an acute coronary syndrome. 3. Tricuspid regurgitation: At least moderate on echo. Some images suggest that perhaps the tricuspid valve does not fully coapt during systole. Can be followed in the outpatient setting. 4. Thoracic aortic aneurysm s/p repair: Details not well-known at the time of this note. Would avoid fluoroquinolones if able. 5. Hypertension: Normotensive currently. 6. Acute on chronic renal failure: Abnormal but stable. 7. Hyperkalemia: Resolved. 8. Hypothermia: Resolved. 9. Pulmonary hypertension: Long history of tobacco abuse. Admission and Anticipated Discharge Date Admission Date: September 05, 2025 Subjective This morning patient clinically feeling well. She denies any significant breathing difficulty. No dizziness or lightheadedness. Anxious to eat breakfast. Review of Systems Review of Systems: Per HPI Physical Exam Physical Exam: She is alert and oriented x3. Mood affect appear normal. She answered all questions appropriately. Somewhat tangential at times. HEENT: Sclerae are anicteric. Pupils are equal and reactive to light and accommodation. Extraocular movements were intact. Neuro: Cranial nerves intact Lungs: Lungs are clear to auscultation bilaterally. There are no rales wheezes or rhonchi. She has normal respiratory effort without use of accessory muscles. There is normal pulmonary excursion. Cardiac: The rhythm was regular but bradycardic . S1 and S2 were normal. There are no murmurs on examination. The PMI was not markedly displaced on palpation. Extremities: Patient has bilateral radial pulses that are equal in intensity. There is no evidence cyanosis or clubbing. Mild lower extremity edema Skin: There are no rashes noted on examination today. Results & Data Vital Signs (Past 12 Hours) Vital Signs Temp Pulse Resp BP Pulse Ox O2 Del Method O2 Flow Rate 09/06/25 08:45 36.5 C 39 L 24 92 09/06/25 08:36 36.5 C 65 22 92 09/06/25 08:21 121/42 L 09/06/25 08:15 36.5 C 38 L 19 94 Nasal Cannula 3 09/06/25 08:10 123/48 L 09/06/25 08:00 119/47 L 09/06/25 07:50 121/45 L 09/06/25 07:42 36.5 C 38 L 19 94 09/06/25 07:41 115/58 L 09/06/25 07:39 36.5 C 38 L 20 93 09/06/25 07:33 36.4 C L 38 L 19 93 09/06/25 07:30 123/43 L 09/06/25 07:29 Nasal Cannula 3 09/06/25 07:10 128/43 L 09/06/25 07:09 36.3 C L 38 L 19 94 09/06/25 07:06 38 L 09/06/25 07:00 126/47 L 09/06/25 06:51 36.2 C L 38 L 20 92 09/06/25 06:50 123/44 L 09/06/25 06:48 36.2 C L 38 L 20 92 09/06/25 06:45 36.3 C L 38 L 20 92 Oxymask 3 09/06/25 06:10 130/44 L 09/06/25 06:00 36.7 C 39 L 24 93 09/06/25 05:50 108/49 L 09/06/25 05:48 36.7 C 40 L 25 H 96 09/06/25 05:15 36.7 C 39 L 23 90 09/06/25 05:03 36.8 C 39 L 21 94 09/06/25 04:36 36.7 C 40 L 22 88 L 09/06/25 03:33 36.6 C 40 L 20 94 09/06/25 03:31 119/55 L 09/06/25 03:21 136/52 L 09/06/25 03:15 36.7 C 40 L 24 92 09/06/25 03:10 146/63 H 09/06/25 03:09 36.7 C 41 L 19 94 09/06/25 03:00 36.7 C 40 L 23 89 L 09/06/25 02:41 108/40 L 09/06/25 02:39 121/40 L 09/06/25 02:39 36.7 C 40 L 20 93 09/06/25 02:33 36.7 C 40 L 21 93 09/06/25 02:00 36.7 C 40 L 20 87 L 09/06/25 01:40 134/51 L 09/06/25 01:30 120/47 L 09/06/25 01:24 36.7 C 40 L 17 88 L 09/06/25 01:20 118/39 L 09/06/25 01:18 36.7 C 40 L 16 95 09/06/25 01:10 117/41 L 09/06/25 01:03 36.6 C 40 L 19 93 09/06/25 01:00 115/46 L 09/06/25 00:57 36.7 C 40 L 19 93 09/06/25 00:50 121/45 L 09/06/25 00:48 36.7 C 40 L 21 92 09/06/25 00:40 114/44 L 09/06/25 00:39 36.7 C 40 L 18 93 09/06/25 00:30 113/48 L 09/06/25 00:27 36.7 C 41 L 18 97 09/06/25 00:21 104/55 L 09/06/25 00:18 36.7 C 41 L 19 95 09/06/25 00:10 118/42 L 09/06/25 00:09 36.8 C 41 L 21 94 09/06/25 00:03 36.7 C 41 L 13 96 09/06/25 00:02 118/42 L 09/05/25 23:59 43 L 09/05/25 23:54 36.7 C 41 L 24 97 09/05/25 23:50 119/47 L 09/05/25 23:45 36.7 C 41 L 24 97 09/05/25 23:40 124/45 L 09/05/25 23:30 117/46 L 09/05/25 23:30 36.8 C 42 L 18 96 09/05/25 23:10 127/47 L 09/05/25 23:03 36.7 C 43 L 17 94 09/05/25 23:00 125/45 L 09/05/25 23:00 125/45 L 09/05/25 23:00 36.7 C 40 L 20 95 09/05/25 22:57 36.7 C 42 L 20 96 09/05/25 22:40 122/43 L 09/05/25 22:39 36.8 C 43 L 22 89 L 09/05/25 22:31 114/43 L 09/05/25 22:30 36.8 C 42 L 23 90 09/05/25 22:21 122/44 L 09/05/25 22:21 36.8 C 42 L 24 93 09/05/25 22:10 116/49 L Laboratory Results Abnormal Lab Results 09/05/25 09/05/25 09/05/25 02:19 10:57 12:45 WBC RBC Hgb Hct MCV MCH MCHC RDW Std Deviation RDW Coeff of Amara Plt Count MPV Immature Gran % (Auto) Neut % (Auto) Lymph % (Auto) Johnson % (Auto) Eos % (Auto) Baso % (Auto) Neut # (Auto) Lymph # (Auto) Johnson # (Auto) Eos # (Auto) Baso # (Auto) Immature Gran # (Auto) Absolute Nucleated RBC Nucleated RBC % (auto) Polychromasia Ovalocytes PT INR APTT PTT Ratio Sodium 135 L Potassium 4.5 Chloride 98 Carbon Dioxide 28 Anion Gap 9 BUN 67 H Creatinine 2.20 H Est Cr Clr Drug Dosing 15.4 eGFR 21.97 BUN/Creatinine Ratio 30.5 H Glucose 89 POC Glucose 105 H Lactate 1.9 Calcium 8.6 Ionized Calcium 1.12 Phosphorus 7.1 H Magnesium 3.9 H Ferritin Total Bilirubin AST ALT Alkaline Phosphatase Total Protein Albumin Globulin Albumin/Globulin Ratio Vitamin B12 Folate List. monocytogenes PCR DETECTED A Bld Cult ID Panel PCR See PCR Comment 09/05/25 09/05/25 09/06/25 18:15 23:38 04:31 WBC 15.12 H RBC 3.02 L Hgb 7.8 L Hct 24.3 L MCV 80.5 MCH 25.8 MCHC 32.1 RDW Std Deviation 47.0 H RDW Coeff of Amara 17.0 H Plt Count 445 H MPV 9.5 Immature Gran % (Auto) 0.6 Neut % (Auto) 87.1 Lymph % (Auto) 8.2 Johnson % (Auto) 4.0 Eos % (Auto) 0.0 Baso % (Auto) 0.1 Neut # (Auto) 13.17 H Lymph # (Auto) 1.24 Johnson # (Auto) 0.61 H Eos # (Auto) 0.00 Baso # (Auto) 0.01 Immature Gran # (Auto) 0.09 Absolute Nucleated RBC 0.03 Nucleated RBC % (auto) 0.2 Polychromasia 2+ Ovalocytes 1+ PT 14.2 H INR 1.4 H APTT 28 PTT Ratio 1.0 Sodium 136 Potassium 5.0 Chloride 98 Carbon Dioxide 24 Anion Gap 14 H BUN 69 H Creatinine 2.29 H Est Cr Clr Drug Dosing 14.8 eGFR 20.94 BUN/Creatinine Ratio 30.1 H Glucose 67 L POC Glucose 96 83 Lactate Calcium 8.5 L Ionized Calcium Phosphorus Magnesium 3.7 H Ferritin 201.7 Total Bilirubin 0.4 AST 63 H ALT 45 Alkaline Phosphatase 289 H Total Protein 5.9 L Albumin 2.6 L Globulin 3.3 Albumin/Globulin Ratio 0.8 L Vitamin B12 996 H Folate 6.98 List. monocytogenes PCR Bld Cult ID Panel PCR 09/06/25 05:46 WBC RBC Hgb Hct MCV MCH MCHC RDW Std Deviation RDW Coeff of Amara Plt Count MPV Immature Gran % (Auto) Neut % (Auto) Lymph % (Auto) Johnson % (Auto) Eos % (Auto) Baso % (Auto) Neut # (Auto) Lymph # (Auto) Johnson # (Auto) Eos # (Auto) Baso # (Auto) Immature Gran # (Auto) Absolute Nucleated RBC Nucleated RBC % (auto) Polychromasia Ovalocytes PT INR APTT PTT Ratio Sodium Potassium Chloride Carbon Dioxide Anion Gap BUN Creatinine Est Cr Clr Drug Dosing eGFR BUN/Creatinine Ratio Glucose POC Glucose 82 Lactate Calcium Ionized Calcium Phosphorus Magnesium Ferritin Total Bilirubin AST ALT Alkaline Phosphatase Total Protein Albumin Globulin Albumin/Globulin Ratio Vitamin B12 Folate List. monocytogenes PCR Bld Cult ID Panel PCR Diagnostic Findings Echocardiogram 09/05/2025: Ejection fraction 60 to 65%. No LVH. Moderately dilated right ventricle and mildly reduced RV systolic function. Severe biatrial dilation. Mild mitral regurgitation. Moderate pulmonary hypertension. PG Care Time/CCT Total # of Minutes Spent Total Time Spent with Patient: Total time spent is greater than 50% in coordination of care (as documented) at patient's floor/unit and/or counseling patient: Coding Level of Care Code 94384 SUB INP/OBS CARE 2/35MIN Diagnoses Complete heart block I44.2 Junctional bradycardia R00.1 Elevated troponin R79.89 Tricuspid regurgitation I07.1 HTN (hypertension) I10 S/P thoracic aortic aneurysm repair Z98.890; Z86.79
[2025-09-06] MEDS: SULFA IV SCH (10:57)
[2025-09-06] MEDS: DEXTROSE 5% IV SCH (10:57)
[2025-09-06] MEDS: TRIMETH IV SCH (10:57)
--- NOTE | 2025-09-06 16:51 | Electrocardiogram Report ---
Test Reason : Blood Pressure : */* mmHG Vent. Rate : 40 BPM Atrial Rate : * BPM P-R Int : * ms QRS Dur : 76 ms QT Int : 500 ms P-R-T Axes : * 79 84 degrees QTcB Int : 407 ms Junctional bradycardia Low voltage QRS Nonspecific T wave abnormality Abnormal ECG When compared with ECG of 05-Sep-2025 11:35, Nonspecific T wave abnormality, worse in Lateral leads Confirmed by Maverick Garcia ([id number] on 09/06/2025 4:51:24 PM Referred By: REFERRED SELF Confirmed By: Maverick Garcia
[2025-09-06 17:12] LABS: Anion Gap 15.0 (3-11); Blood Urea Nitrogen 72.0 mg/dl (6-23); Calcium 8.5 mg/dl (8.6-10.3); Carbon Dioxide 22.0 mmol/L (21-32); Chloride 95.0 mmol/L (98-107); Creatinine Clr Calc Pharmacy 15.3 ml/min; Glucose 79.0 mg/dl (70-99(Fasting)); Magnesium 3.9 mg/dl (1.7-2.4); Potassium 5.1 mmol/L (3.5-5.1); Sodium 132.0 mmol/L (136-145)
[2025-09-07] MEDS: FUROSEMIDE 40 MG/4 ML VIAL IV ONE (02:46)
[2025-09-07 03:26] LABS: HCO3 ABG 24 mmol/L (19-24); Oxygen Saturation ABG 92.3 % (90-95); PCO2 ABG 33 mmHg (35-46); PO2 ABG 65 mmHg (80-95)
[2025-09-07 03:27] LABS: Allen Test Pos (Pos)
[2025-09-07] MEDS: ALBUMIN 25% 25 GM/100 ML VIAL IV ONE (03:52)
[2025-09-07 04:14] LABS: Hematocrit (blood only) 24.6 % (37.0-47.0); Hemoglobin 7.6 g/dl (12.0-16.0); Immature Granulocytes # (auto) 0.09 K/uL (0.01-0.20); Immature Granulocytes % (auto) 0.6 %; Mean Corpuscular Hemoglobin 24.4 pg (25.0-34.0); Mean Corpuscular Volume 78.8 fL (80.0-100.0); Platelet Count 383 K/uL (130-400); RDW Standard Deviation 47.1 fL (36.4-46.3); Red Blood Count 3.12 M/uL (4.20-5.40); White Blood Count 15.88 K/ul (4.8-10.8)
[2025-09-07 04:29] LABS: Anion Gap 14.0 (3-11); Blood Urea Nitrogen 74.0 mg/dl (6-23); Calcium 8.5 mg/dl (8.6-10.3); Carbon Dioxide 23.0 mmol/L (21-32); Chloride 96.0 mmol/L (98-107); Creatinine Clr Calc Pharmacy 15.7 ml/min; Glucose 73.0 mg/dl (70-99(Fasting)); Potassium 4.7 mmol/L (3.5-5.1); Sodium 133.0 mmol/L (136-145)
[2025-09-07 04:30] LABS: Alanine Aminotransferase 58.0 U/L (7-52); Albumin Globulin Ratio 0.9 (0.9-2); Albumin Level 2.7 gm/dl (3.4-5.0); Alkaline Phosphatase 435.0 U/L (34-104); Anion Gap 14.0 (3-11); Bilirubin,Total 0.5 mg/dl (0.2-1.0); Blood Urea Nitrogen 74.0 mg/dl (6-23); Calcium 8.6 mg/dl (8.6-10.3); Carbon Dioxide 23.0 mmol/L (21-32); Chloride 96.0 mmol/L (98-107); Creatinine Clr Calc Pharmacy 15.5 ml/min; Globulin 3.0 gm/dl (2.5-4.0); Glucose 71.0 mg/dl (70-99(Fasting)); Magnesium 3.7 mg/dl (1.7-2.4); Potassium 4.7 mmol/L (3.5-5.1); Sodium 133.0 mmol/L (136-145); Total Protein 5.7 gm/dl (6.0-8.3)
[2025-09-07 04:37] LABS: Hypochromasia Present; Polychromasia 1+
[2025-09-07 04:50] LABS: INR 1.6 (0.9-1.1); Partial Thromboplastin Time 31 Seconds (21-31); Prothrombin Time 16.6 Seconds (9.0-12.0)
--- NOTE | 2025-09-07 07:23 | XRay Report ---
EXAM: XR chest 1V portable CLINICAL HISTORY: Dyspnea,? fluid overload. TECHNIQUE: An X-ray image of the chest was obtained in the AP projection. COMPARISON: 09/04/2025 FINDINGS: Midline sternotomy wires are noted. Pulmonary Parenchyma: A new finding of an ill-defined, patchy area of airspace opacities is seen at the perihilar region, right middle, and both lower lung zones, with greater involvement on the right side. Prominent bilateral bronchovascular markings are present. There is obliteration of both costophrenic angles, likely representing pleural effusion, more pronounced on the right side. Heart and Mediastinum: Mild cardiomegaly is present. No mediastinal widening or masses are identified. No hilar or mediastinal lymphadenopathy is seen. Bony Thorax: The bony thorax appears intact without fractures or deformities. Soft Tissues: The soft tissues overlying the chest wall are unremarkable. IMPRESSION: 1. New interval finding of bilateral patchy opacification, mainly in the right lower zone. Possible pulmonary edema versus infectious process, according to clinical evaluation. 2. Obliteration of both costophrenic angles, likely due to pleural effusion (more pronounced on the right side). 3. Mild cardiomegaly. Electronically signed by Dallin Muñoz 09-07-2025 07:23 AM
[2025-09-07] MEDS ORDERED: STAT IV Infusion **Titration per Protocol STA (07:46)
--- NOTE | 2025-09-07 09:16 | Electrocardiogram Report ---
Test Reason : Blood Pressure : */* mmHG Vent. Rate : 40 BPM Atrial Rate : * BPM P-R Int : * ms QRS Dur : 72 ms QT Int : 526 ms P-R-T Axes : * 94 46 degrees QTcB Int : 428 ms Sinus rhythm with complete heart block and junctional escape rhythm Rightward axis Low voltage QRS Abnormal ECG When compared with ECG of 06-Sep-2025 05:23, Nonspecific T wave abnormality, improved in Lateral leads Confirmed by Maverick Garcia ([id number]) on 09/07/2025 9:16:22 AM Referred By: REFERRED SELF Confirmed By: Maverick Garcia
--- NOTE | 2025-09-07 09:39 | Critical Care Progress Note ---
Date of Service September 07, 2025 Assessment & Plan (1) Shock: (2) Bradycardia: (3) Hypothermia: (4) Hypoglycemia: (5) CKD stage 3b, GFR 30-44 ml/min: (6) Electrolyte abnormality: (7) Metabolic acidosis: (8) COPD (chronic obstructive pulmonary disease): Plan Reason Critically Ill: 80 YOF presents bradycardic, hypothermic with multiple electrolyte abnormalities and AGAP metabolic acidosis. She is requiring TCP and Vasopressor support at this time. 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 - Bradycardia-improved on isoproterenol per cardiology - Echocardiogram reviewed -Cardiology consult reviewed - Anticipate permanent pacemaker placement - Isoproterenol in effort to increase forward flow through kidneys to see if that improves worsening renal function Respiratory - Acute hypoxic respiratory failure - Concern for third spacing in the setting of bacteremia and acute kidney failure on chronic kidney disease - Currently on high flow nasal cannula HX previous smoker, COPD, lung cancer with RML resection-squamous cell - Continue with ADAN - O2 sats 88-92% GI - Diarrhea: Resolved - Likely had contribution from Listeria bacteremia and heavy laxative use RENAL/LYTES - BRITTON on CKD III B, improved - Hyperkalemia-resolved - HyperMag-improving: Current serum 3.7 - HypoCalcemia-ionized calcium improved - Anion gap mildly elevated - No acute need - May discontinue Reynoso ENDO - Hypoglycemia - improved - TSH normal HEME - Anemia, - Multifactorial, chronic kidney disease, poor nutritional intake, anemia chronic disease - no external sources of blood loss noted - Thrombocytosis improved - - Health screenings reportedly up to date by patient and daughter- yearly CT scans of chest and AAA, Colonoscopy ~2 years ago with bowel resection secondary to polyps, not sure if she has had EGD. Supratherapeutic INR - Unclear significance, could this be related to poor forward flow/congestive hepatopathy: There is a mild transaminitis ID -Listeria bacteremia - Ampicillin and renally adjusted Bactrim - holding bactrim over concern for worsening renal function - feel risks of worsening renal function from bactrim weighs risks of single agent antibiotics for listeria - MRSA nares positive- no concern for pulm source, no definite soft tissue source - Repeat blood culture x2 pending for tomorrow morning LINES/IV ACCESS - PIV [id number] Continue use of these lines DVT PROPHYLAXIS - SCDs - Heparin 5000 units twice daily DISPO: ICU given multisystem organ failure requiring isoproterenol and high flow nasal cannula Admission and Anticipated Discharge Date Admission Date: September 05, 2025 Supervising Physician Co-Signing Physician Notes I have personally spent 70 minutes of critical care time in the direct management of this patient. This is a life/limb threatening event. This includes time spent evaluating patient, direct bedside care, chart review, placing orders, interpretation of diagnostic studies, discussion with consultants, patient, and/or family members regarding treatment decisions, as well as other required patient management activities. This time is exclusive of all separately billable procedures, and teaching time and separate from and in addition to any other critical care service time. Subjective Worsening oxygen requirement, worsening mild disorientation Physical Exam Physical Exam: General: Alert. Oriented to place and self, not able to adequately/fully engage in teach back of underlying medical issues/current issues Skin: Warm, dry, Head: Atraumatic Ears, nose, mouth and throat: airway patent Cardiovascular: Normal peripheral perfusion, appears to be in atrial flutter on bedside monitor vs underlying sinus with tremor Respiratory: no respiratory distress Gastrointestinal: Non distended Musculoskeletal: No deformity Results & Data Results & Data Vital Signs (Past 12 Hours) Vital Signs Temp Pulse Pulse Resp BP BP Pulse Ox 09/07/25 07:51 39 L 20 93 09/07/25 07:23 09/07/25 06:47 39 L 09/07/25 06:45 36.7 C 39 L 22 91 09/07/25 06:30 36.8 C 40 L 21 87 L 09/07/25 06:20 111/40 L 09/07/25 06:15 36.7 C 37 L 20 85 L 09/07/25 06:00 36.8 C 40 L 18 92 09/07/25 05:54 36.8 C 47 L 19 90 09/07/25 05:27 36.7 C 40 L 18 88 L 09/07/25 05:00 122/52 L 09/07/25 05:00 36.8 C 41 L 17 89 L 09/07/25 04:42 36.8 C 42 L 18 91 09/07/25 04:03 36.8 C 41 L 21 91 09/07/25 04:02 108/35 L 09/07/25 03:57 36.8 C 45 L 21 93 09/07/25 03:39 36.8 C 41 L 24 88 L 09/07/25 03:00 36.9 C 81 30 H 96 09/07/25 02:30 37.0 C 43 L 22 86 L 09/07/25 02:12 37.0 C 42 L 17 90 09/07/25 02:03 43 L 09/07/25 02:01 115/37 L 09/07/25 01:52 43 L 30 H 83 L 09/07/25 01:51 37.0 C 43 L 14 83 L 09/07/25 01:01 101/39 L 09/07/25 01:00 36.9 C 42 L 29 H 76 L 09/07/25 00:45 88 L 09/07/25 00:33 37.1 C 43 L 21 86 L 09/07/25 00:01 110/69 09/06/25 23:30 37.2 C 45 L 26 H 91 09/06/25 23:15 37.2 C 49 L 25 H 84 L 09/06/25 23:01 120/58 L 09/06/25 22:52 44 L 22 90 09/06/25 22:39 37.2 C 46 L 31 H 91 09/06/25 22:30 37.2 C 42 L 21 85 L 09/06/25 22:00 37.0 C 42 L 15 95 09/06/25 22:00 118/46 L 09/06/25 21:42 36.9 C 42 L 21 96 O2 Del Method O2 Flow Rate FiO2 09/07/25 07:51 High Flow Nasal Cannula 30 75 09/07/25 07:23 Oxymask 15 09/07/25 06:47 09/07/25 06:45 09/07/25 06:30 09/07/25 06:20 09/07/25 06:15 09/07/25 06:00 09/07/25 05:54 09/07/25 05:27 09/07/25 05:00 09/07/25 05:00 09/07/25 04:42 09/07/25 04:03 09/07/25 04:02 09/07/25 03:57 09/07/25 03:39 09/07/25 03:00 09/07/25 02:30 09/07/25 02:12 09/07/25 02:03 09/07/25 02:01 09/07/25 01:52 Oxymask 15 09/07/25 01:51 09/07/25 01:01 09/07/25 01:00 09/07/25 00:45 Oxymask 10 09/07/25 00:33 09/07/25 00:01 09/06/25 23:30 09/06/25 23:15 09/06/25 23:01 09/06/25 22:52 Nasal Cannula 4 09/06/25 22:39 09/06/25 22:30 09/06/25 22:00 09/06/25 22:00 09/06/25 21:42 Critical Care Results & Data Vital Signs (Past 12 Hours) Vital Signs Temp Pulse Pulse Resp BP BP Pulse Ox 09/07/25 07:51 39 L 20 93 09/07/25 07:23 09/07/25 06:47 39 L 09/07/25 06:45 36.7 C 39 L 22 91 09/07/25 06:30 36.8 C 40 L 21 87 L 09/07/25 06:20 111/40 L 09/07/25 06:15 36.7 C 37 L 20 85 L 09/07/25 06:00 36.8 C 40 L 18 92 09/07/25 05:54 36.8 C 47 L 19 90 09/07/25 05:27 36.7 C 40 L 18 88 L 09/07/25 05:00 122/52 L 09/07/25 05:00 36.8 C 41 L 17 89 L 09/07/25 04:42 36.8 C 42 L 18 91 09/07/25 04:03 36.8 C 41 L 21 91 09/07/25 04:02 108/35 L 09/07/25 03:57 36.8 C 45 L 21 93 09/07/25 03:39 36.8 C 41 L 24 88 L 09/07/25 03:00 36.9 C 81 30 H 96 09/07/25 02:30 37.0 C 43 L 22 86 L 09/07/25 02:12 37.0 C 42 L 17 90 09/07/25 02:03 43 L 09/07/25 02:01 115/37 L 09/07/25 01:52 43 L 30 H 83 L 09/07/25 01:51 37.0 C 43 L 14 83 L 09/07/25 01:01 101/39 L 09/07/25 01:00 36.9 C 42 L 29 H 76 L 09/07/25 00:45 88 L 09/07/25 00:33 37.1 C 43 L 21 86 L 09/07/25 00:01 110/69 09/06/25 23:30 37.2 C 45 L 26 H 91 09/06/25 23:15 37.2 C 49 L 25 H 84 L 09/06/25 23:01 120/58 L 09/06/25 22:52 44 L 22 90 09/06/25 22:39 37.2 C 46 L 31 H 91 09/06/25 22:30 37.2 C 42 L 21 85 L 09/06/25 22:00 37.0 C 42 L 15 95 09/06/25 22:00 118/46 L 09/06/25 21:42 36.9 C 42 L 21 96 O2 Del Method O2 Flow Rate FiO2 09/07/25 07:51 High Flow Nasal Cannula 30 75 09/07/25 07:23 Oxymask 15 09/07/25 06:47 09/07/25 06:45 09/07/25 06:30 09/07/25 06:20 09/07/25 06:15 09/07/25 06:00 09/07/25 05:54 09/07/25 05:27 09/07/25 05:00 09/07/25 05:00 09/07/25 04:42 09/07/25 04:03 09/07/25 04:02 09/07/25 03:57 09/07/25 03:39 09/07/25 03:00 09/07/25 02:30 09/07/25 02:12 09/07/25 02:03 09/07/25 02:01 09/07/25 01:52 Oxymask 15 09/07/25 01:51 09/07/25 01:01 09/07/25 01:00 09/07/25 00:45 Oxymask 10 09/07/25 00:33 09/07/25 00:01 09/06/25 23:30 09/06/25 23:15 09/06/25 23:01 09/06/25 22:52 Nasal Cannula 4 09/06/25 22:39 09/06/25 22:30 09/06/25 22:00 09/06/25 22:00 09/06/25 21:42 Lab & Micro Results (Past 24 Hours) RBC 3.12 M/uL (4.20-5.40) L 09/07/25 WBC 15.88 K/ul (4.8-10.8) H 09/07/25 Hgb 7.6 g/dl (12.0-16.0) L 09/07/25 Hct 24.6 % (37.0-47.0) L 09/07/25 MCV 78.8 fL (80.0-100.0) L 09/07/25 MCH 24.4 pg (25.0-34.0) L 09/07/25 MCHC 30.9 g/dL (32.0-36.0) L 09/07/25 RDW Standard Deviation 47.1 fL (36.4-46.3) H 09/07/25 RDW Coefficient of Variation 17.5 % (11.5-14.5) H 09/07/25 Plt Count 383 K/uL (130-400) 09/07/25 MPV 9.5 fL (9.4-12.4) 09/07/25 Nucleated Red Blood Cells % (auto) 0.3 % 09/07 Nucleated RBC Absolute Count (auto) 0.05 K/uL (0.00-0.12) 1 Neutrophils (%) (Auto) 88.5 % 09/07/25 Lymphocytes (%) (Auto) 5.9 % 09/07/25 Monocytes # (Auto) 0.78 K/uL (0.11-0.59) H 09/07/25 Eosinophils # (Auto) 0.00 K/uL (0.00-0.50) 09/07/25 Immature Granulocyte % (Auto) 0.6 % 09/07/25 Neutrophils # (Auto) 14.06 K/uL (1.40-6.50) H 09/07/25 Lymphocytes # (Auto) 0.94 K/uL (1.20-3.40) L 09/07/25 Monocytes # (Auto) 0.78 K/uL (0.11-0.59) H 09/07/25 Eosinophils # (Auto) 0.00 K/uL (0.00-0.50) 09/07/25 Basophils # (Auto) 0.01 K/uL (0.00-0.20) 09/07/25 Immature Granulocyte # (Auto) 0.09 K/uL (0.01-0.20) 5 Polychromasia 1+ 09/07/25 Hypochromasia Present 09/07/25 Na 133 mmol/L (136-145) L 09/07/25 K 4.7 mmol/L (3.5-5.1) 09/07/25 Cl 96 mmol/L (98-107) L 09/07/25 CO2 23 mmol/L (21-32) 09/07/25 Anion Gap 14 (3-11) H 09/07/25 BUN 74 mg/dl (6-23) H 09/07/25 Creatinine 2.34 mg/dl (0.6-1.2) H 09/07/25 BUN/Creatinine Ratio 31.6 (10-20) H 09/07/25 Glu 71 mg/dl (70-99(Fasting)) 09/07/25 Ca 8.6 mg/dl (8.6-10.3) 09/07/25 Total Bilirubin 0.5 mg/dl (0.2-1.0) 09/07/25 AST 86 U/L (13-39) H 09/07/25 ALT 58 U/L (7-52) H 09/07/25 Alkaline Phosphatase 435 U/L (34-104) H 09/07/25 TP 5.7 gm/dl (6.0-8.3) L 09/07/25 Albumin 2.7 gm/dl (3.4-5.0) L 09/07/25 Globulin 3.0 gm/dl (2.5-4.0) 09/07/25 Albumin/Globulin Ratio 0.9 (0.9-2) 10/26/25 Mg 3.7 mg/dl (1.7-2.4) H 09/07/25 04:02 Calcium Level 8.6 mg/dl (8.6-10.3) 09/07/25 04:02 Prothromb Time International Ratio 1.6 (0.9-1.1) H 09/07/25 04 :02 Arterial Blood pH 7.46 (7.35-7.45) H 09/07/25 03:21 Arterial Blood Partial Pressure CO2 33 mmHg (35-46) L 09/07/25 03:21 Arterial Blood Partial Pressure O2 65 mmHg (80-95) L 09/07/25 0 3:21 Arterial Blood HCO3 24 mmol/L (19-24) 09/07/25 03:21 Arterial Blood Base Excess 0.3 mEq/L (-9-1.8) 09/07/25 03:21 Arterial Blood Oxygen Saturation 92.3 % (90-95) 09/07/25 03:21 Blood Gas Oxygen Given 10L 09/07/25 03:21 David Test Pos (Pos) 09/07/25 03:21 Microbiology 09/05/25 02:19 Aerobic Blood Culture - Preliminary Blood Listeria monocytogenes Anaerobic Blood Culture - Preliminary Listeria monocytogenes 09/05/25 02:19 Aerobic Blood Culture - Preliminary Blood Listeria monocytogenes Anaerobic Blood Culture - Preliminary Listeria monocytogenes Diagnostic Findings (Past 24 Hours) Chest X-Ray 09/07/25 02:34 EXAM: XR chest 1V portable CLINICAL HISTORY: Dyspnea,? fluid overload. TECHNIQUE: An X-ray image of the chest was obtained in the AP projection. COMPARISON: 09/04/2025 FINDINGS: Midline sternotomy wires are noted. Pulmonary Parenchyma: A new finding of an ill-defined, patchy area of airspace opacities is seen at the perihilar region, right middle, and both lower lung zones, with greater involvement on the right side. Prominent bilateral bronchovascular markings are present. There is obliteration of both costophrenic angles, likely representing pleural effusion, more pronounced on the right side. Heart and Mediastinum: Mild cardiomegaly is present. No mediastinal widening or masses are identified. No hilar or mediastinal lymphadenopathy is seen. Bony Thorax: The bony thorax appears intact without fractures or deformities. Soft Tissues: The soft tissues overlying the chest wall are unremarkable. IMPRESSION: 1. New interval finding of bilateral patchy opacification, mainly in the right lower zone. Possible pulmonary edema versus infectious process, according to clinical evaluation. 2. Obliteration of both costophrenic angles, likely due to pleural effusion (more pronounced on the right side). 3. Mild cardiomegaly. Electronically signed by Dallin Muñoz 09-07-2025 07:23 AM I & O Totals 24 Hours 09/06/25 09/07/25 09/08/25 06:59 06:59 06:59 Intake Total 3528.834 / 3528.834 4358.083 / 4358.083 171.89 / 171.89 Output Total 670 / 670 870 / 870 175 / 175 Balance 2858.834 / 2858.834 3488.083 / 3488.083 -3.11 / -3.11 Cumulative 09/04/25 22:33 thru 09/07/25 09:24 Intake Total 83906.667 Output Total 1825 Balance 8590.667 RT Ventilator Mngmt (Last Documented) Ventilator Ordered Settings Respiratory Rate 20 09/07/25 07:51 Fraction of Inspired Oxygen 75 09/07/25 0 7:51 Ventilator - PT Measurements Respiratory Rate 20 Coding Level of Care Code 90035 CRITICAL CARE 1ST 30-74M Diagnoses Shock R57.9 Bradycardia R00.1 Hypothermia T68.XXXA Hypoglycemia E16.2 CKD stage 3b, GFR 30-44 ml/min N18.32 Electrolyte abnormality E87.8 Metabolic acidosis E87.20 COPD (chronic obstructive pulmonary disease) J44.9
[2025-09-07 10:09] LABS: Base Excess VBG -3.3 mEq/L; HCO3 VBG 21 mmol/L; Oxygen Saturation VBG 89.7 %; PCO2 VBG 32 mmHg (38-50); PO2 VBG 61 mmHg; pH VBG 7.42 (7.36-7.41)
[2025-09-07] MEDS: BUMETANIDE 1 MG in SYRINGE 0 ML IV ONE (10:14)
--- NOTE | 2025-09-07 10:18 | Nephrology Consultation ---
Date of Consultation September 07, 2025 Assessment & Plan (1) BRITTON (acute kidney injury): Non-oliguric. Creatinine relatively stable at 2.3 mg/dL. Baseline creatinine unknown. Electrolytes normal. Alesia is volume overloaded. Bumex has been provided to encourage urine output. 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 Hemodynamic stability remains a concern but thankfully heart rate and BP have improved with current therapy. BRITTON can be attributed to ATN. Plasma-lyte infusion will be stopped while diuretics provided. Goal is to encourage a slightly negative fluid balance. Urine studies were notable for 1+ protein, microscopic hematuria, and hyaline casts. Repeat UA + microscopy requested. No imaging of the kidneys available for review but Reynoso is draining appropriately. Medications are appropriate for kidney function. Hold Bactrim - if able. Document strict I/O's. Repeat serum metabolic profile tomorrow AM. (2) Listerial sepsis: Hold Bactrim if able. ID consultation pending. Remains on ampicillin. (3) Bacteremia: (4) Right heart failure: Adequate response to furosemide 40 mg IV overnight. Bumex 1 mg IV provided this AM. Cardiology following. Remains bradycardic with evidence of junctional rhythm. Narrow complex rhythm on monitor currently. HR improved with isoproterenol infusion. (5) Anemia: Stable. Transfusion support PRN for Hgb <7. History of Present Illness Reason for Consultation: volume overload, renal dysfunction Requesting Physician: Waqar Guerrero Attending Physician: Chaya Plata MD History of Present Illness Alesia Wills is an 80 year-old female who presented to the ER at [facility] on September 05 with altered mentation, severe bradycardia, shock, hypothermia, hypoglycemia, hyperkalemia, acute on chronic renal failure, and metabolic ac idosis. Heart rate was <30 bpm and transcutaneous pacing initiated. Metabolic derangements, including acidosis and hyperkalemia medically managed. Hemodynamic instability with bradycardia persisted for which isoproterenol infusion was initiated. Nephrology consultation was requested this morning for acute kidney injury and volume overload. Alesia remains encephalopathic and unable to provide a reliable history. Baseline creatinine is now known. She told me that she has followed with a erisa attorney but she is an unreliable historian. She did seem to recognize the names of Dr. Dee and Dr. Hurtado but could not confirm who her erisa attorney. She told me that she saw her doctor a few weeks ago and he told her that she needed to have something mechanical fixed. Alesia was seen and evaluated in the ICU this morning with her RN at the bedside. She is wearing soft restraits due to confusion requiring frequent orientation. She is oxygenating reasonably well on high flow nasal cannula. I discussed the patient's history and plan of care with Dr. Kline, Dr. Garcia, and Dr. Larkin this morning. 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 Dr. Garcia is considering permanent pacemaker placement. This will likely be scheduled for tomorrow. Clinically, improvement in infection has been seen with ampicillin and Bactrim. Unfortunately, kidney function has not significantly improved. Alesia remains encephalopathic. She has increasing evidence of volume overload and hypoxic respiratory failure. CXR demonstrating bilateral airspace opacities. She is non-oliguric with a reasonable response to furosemide 40 mg IV provided overnight. Reynoso draining cloudy yellow urine. Past medical history is notable for bioprosthetic aortic valve (2017), thoracic aortic aneurysm s/p hemiarch repair, squamous cell lung cancer s/p right middle lobe wedge resection, borderline diabetes, hypertension, dyslipidemia, COPD, and CKD. Baseline creatinine is unknown. TTE demonstrates RV dysfunction, biatrial dilation, and RVSP ~58. Allergies Allergy/AdvReac Type Severity Reaction Status Date / Time No Known Allergies Allergy Unverified 09/05/25 00:07 Home Medications Medication Instructions Recorded Confirmed Type acetaminophen 650 mg 1,300 mg PO QAM 09/05/25 09/05/25 History tablet,extended release albuterol sulfate 90 mcg/actuation 2 puff inhalation Q4H PRN 09/05/25 09/05/25 History aerosol inhaler (Ventolin HFA) Shortness Of Breath Or Wheezing amlodipine 10 mg tablet 10 mg PO DAILY 09/05/25 09/05/25 History aspirin 81 mg tablet 81 mg PO DAILY 09/05/25 09/05/25 History atorvastatin 10 mg tablet 10 mg PO DAILY 09/05/25 09/05/25 History cholecalciferol (vitamin D3) 25 25 mcg PO DAILY 09/05/25 09/05/25 History mcg (1,000 unit) tablet clonazepam 0.5 mg PO HS 09/05/25 09/05/25 History clonazepam 0.5 mg tablet 0.5 mg PO HS 09/05/25 09/05/25 History docusate sodium 100 mg capsule 100 mg PO BID 09/05/25 09/05/25 History ondansetron HCl 4 mg tablet 0.4 mg PO Q8H PRN Nausea And 09/05/25 09/05/25 History Vomiting varenicline tartrate 0.5 mg tablet 0.5 mg PO DIRECTED 09/05/25 09/05/25 History Patient History Medical History Thyroid nodule HLD (hyperlipidemia) DMII (diabetes mellitus, type 2) Lung cancer HTN (hypertension) CKD stage 3b, GFR 30-44 ml/min COPD (chronic obstructive pulmonary disease) Surgical History History of AAA (abdominal aortic aneurysm) repair Aortic valve replaced Social History Smoking Status: Current every day smoker Tobacco Type: Cigarettes Cigarettes Per Day: 3-4 cigarettes per day; Hx Alcohol Use: No Hx Substance Use: No Preferred Language: Frisian Communication Ability: Effective Director Of Operations Required: No Beliefs That Will Affect Care: None Current Living Situation: Spouse Other Information That Helps Us Care for You: No Feels Safe at Home: Yes Safety Concerns: Feels Safe At This Time Assistive Devices: Denture - Upper, Denture - Lower and Glasses Review of Systems Review of Systems: All systems reviewed & are unremarkable except as noted in HPI & below and Unobtainable due to cognitive status (limited due to encephalopathy) No pain - headache, neck pain, or chest pain. Constitutional: no fever and no chills Respiratory: no dyspnea Physical Exam Constitutional: + thin, + altered mental status and + fr ail appearing; no acute distress Eyes: + anicteric sclerae; no conjunctival abn ormality ENMT: external ear and nose normal, oropharynx normal O2 via HFNC Neck: normal visual inspection and trachea midline Respiratory: + tachypneic Auscultation: + rhonchi Cardiovascular: Rate/Rhythm: + bradycardic Heart Sounds: normal S1 and normal S2 Vessels: + JVD Extremities: + edema Gastrointestinal (Abdomen): Inspection/Auscultation: abdomen normal to inspection Percussion/Palpation: abdomen soft; abdomen nontender Musculoskeletal: Extremities: + cyanosis; no clubbing Skin: + turgor decreased and + dry skin; no ja undice Neurologic: awake and + confused Genitourinary: Reynoso draining cloudy yellow urine Results & Data Vital Signs (Past 12 Hours) Vital Signs Temp Pulse Pulse Resp BP BP Pulse Ox 09/07/25 09:03 36.7 C 63 30 H 97 09/07/25 09:00 132/43 L 09/07/25 08:12 36.8 C 41 L 16 99 09/07/25 08:01 108/41 L 09/07/25 07:51 39 L 15 96 09/07/25 07:51 39 L 20 93 09/07/25 07:23 09/07/25 07:00 112/36 L 09/07/25 07:00 36.8 C 39 L 20 93 09/07/25 06:47 39 L 09/07/25 06:45 36.7 C 39 L 22 91 09/07/25 06:30 36.8 C 40 L 21 87 L 09/07/25 06:20 111/40 L 09/07/25 06:15 36.7 C 37 L 20 85 L 09/07/25 06:00 36.8 C 40 L 18 92 09/07/25 05:54 36.8 C 47 L 19 90 09/07/25 05:27 36.7 C 40 L 18 88 L 09/07/25 05:00 122/52 L 09/07/25 05:00 36.8 C 41 L 17 89 L 09/07/25 04:42 36.8 C 42 L 18 91 09/07/25 04:03 36.8 C 41 L 21 91 09/07/25 04:02 108/35 L 09/07/25 03:57 36.8 C 45 L 21 93 09/07/25 03:39 36.8 C 41 L 24 88 L 09/07/25 03:00 36.9 C 81 30 H 96 09/07/25 02:30 37.0 C 43 L 22 86 L 09/07/25 02:12 37.0 C 42 L 17 90 09/07/25 02:03 43 L 09/07/25 02:01 115/37 L 09/07/25 01:52 43 L 30 H 83 L 09/07/25 01:51 37.0 C 43 L 14 83 L 09/07/25 01:01 101/39 L 09/07/25 01:00 36.9 C 42 L 29 H 76 L 09/07/25 00:45 88 L 09/07/25 00:33 37.1 C 43 L 21 86 L 09/07/25 00:01 110/69 09/06/25 23:30 37.2 C 45 L 26 H 91 09/06/25 23:15 37.2 C 49 L 25 H 84 L 09/06/25 23:01 120/58 L 09/06/25 22:52 44 L 22 90 09/06/25 22:39 37.2 C 46 L 31 H 91 09/06/25 22:30 37.2 C 42 L 21 85 L O2 Del Method O2 Flow Rate FiO2 09/07/25 09:03 High Flow Nasal Cannula 30 75 09/07/25 09:00 09/07/25 08:12 09/07/25 08:01 09/07/25 07:51 09/07/25 07:51 High Flow Nasal Cannula 30 75 09/07/25 07:23 Oxymask 15 09/07/25 07:00 09/07/25 07:00 Oxymask 15 09/07/25 06:47 09/07/25 06:45 09/07/25 06:30 09/07/25 06:20 09/07/25 06:15 09/07/25 06:00 09/07/25 05:54 09/07/25 05:27 09/07/25 05:00 09/07/25 05:00 09/07/25 04:42 09/07/25 04:03 09/07/25 04:02 09/07/25 03:57 09/07/25 03:39 09/07/25 03:00 09/07/25 02:30 09/07/25 02:12 09/07/25 02:03 09/07/25 02:01 09/07/25 01:52 Oxymask 15 09/07/25 01:51 09/07/25 01:01 09/07/25 01:00 09/07/25 00:45 Oxymask 10 09/07/25 00:33 09/07/25 00:01 09/06/25 23:30 09/06/25 23:15 09/06/25 23:01 09/06/25 22:52 Nasal Cannula 4 09/06/25 22:39 09/06/25 22:30 Laboratory Results Laboratory Results - last 24 hr 09/06/25 09/06/25 09/06/25 11:23 16:28 18:16 WBC RBC Hgb Hct MCV MCH MCHC RDW Std Deviation RDW Coeff of Amara Plt Count MPV Immature Gran % (Auto) Neut % (Auto) Lymph % (Auto) [place] % (Auto) Eos % (Auto) Baso % (Auto) Neut # (Auto) Lymph # (Auto) [place] # (Auto) Eos # (Auto) Baso # (Auto) Immature Gran # (Auto) Absolute Nucleated RBC Nucleated RBC % (auto) Polychromasia Hypochromasia PT INR APTT PTT Ratio ABG pH ABG pCO2 ABG pO2 ABG HCO3 ABG O2 Saturation ABG Base Excess David Test VBG pH VBG pCO2 VBG pO2 VBG HCO3 VBG O2 Saturation VBG Base Excess Oxygen Given Sodium 132 L Potassium 5.1 Chloride 95 L Carbon Dioxide 22 Anion Gap 15 H BUN 72 H Creatinine 2.37 H Est Cr Clr Drug Dosing 15.3 eGFR 20.10 BUN/Creatinine Ratio 30.4 H Glucose 79 POC Glucose 98 91 Lactate Calcium 8.5 L Magnesium 3.9 H Total Bilirubin AST ALT Alkaline Phosphatase Ammonia 30.0 Total Protein Albumin Globulin Albumin/Globulin Ratio 09/06/25 09/07/25 09/07/25 23:45 03:21 04:02 WBC 15.88 H RBC 3.12 L Hgb 7.6 L Hct 24.6 L MCV 78.8 L MCH 24.4 L MCHC 30.9 L RDW Std Deviation 47.1 H RDW Coeff of Amara 17.5 H Plt Count 383 MPV 9.5 Immature Gran % (Auto) 0.6 Neut % (Auto) 88.5 Lymph % (Auto) 5.9 [place] % (Auto) 4.9 Eos % (Auto) 0.0 Baso % (Auto) 0.1 Neut # (Auto) 14.06 H Lymph # (Auto) 0.94 L [place] # (Auto) 0.78 H Eos # (Auto) 0.00 Baso # (Auto) 0.01 Immature Gran # (Auto) 0.09 Absolute Nucleated RBC 0.05 Nucleated RBC % (auto) 0.3 Polychromasia 1+ Hypochromasia Present PT 16.6 H INR 1.6 H APTT 31 PTT Ratio 1.1 ABG pH 7.46 H ABG pCO2 33 L ABG pO2 65 L ABG HCO3 24 ABG O2 Saturation 92.3 ABG Base Excess 0.3 David Test Pos VBG pH VBG pCO2 VBG pO2 VBG HCO3 VBG O2 Saturation VBG Base Excess Oxygen Given 10L Sodium 133 L Potassium Chloride Carbon Dioxide Anion Gap BUN Creatinine Est Cr Clr Drug Dosing eGFR BUN/Creatinine Ratio Glucose POC Glucose 79 Lactate Calcium Magnesium Total Bilirubin AST ALT Alkaline Phosphatase Ammonia Total Protein Albumin Globulin Albumin/Globulin Ratio 09/07/25 09/07/25 09/07/25 04:02 04:02 04:02 WBC RBC Hgb Hct MCV MCH MCHC RDW Std Deviation RDW Coeff of Amara Plt Count MPV Immature Gran % (Auto) Neut % (Auto) Lymph % (Auto) [place] % (Auto) Eos % (Auto) Baso % (Auto) Neut # (Auto) Lymph # (Auto) [place] # (Auto) Eos # (Auto) Baso # (Auto) Immature Gran # (Auto) Absolute Nucleated RBC Nucleated RBC % (auto) Polychromasia Hypochromasia PT INR APTT PTT Ratio ABG pH ABG pCO2 ABG pO2 ABG HCO3 ABG O2 Saturation ABG Base Excess David Test VBG pH VBG pCO2 VBG pO2 VBG HCO3 VBG O2 Saturation VBG Base Excess Oxygen Given Sodium 133 L Potassium 4.7 4.7 Chloride 96 L 96 L Carbon Dioxide 23 Anion Gap BUN Creatinine Est Cr Clr Drug Dosing eGFR BUN/Creatinine Ratio Glucose POC Glucose Lactate Calcium Magnesium Total Bilirubin AST ALT Alkaline Phosphatase Ammonia Total Protein Albumin Globulin Albumin/Globulin Ratio 09/07/25 09/07/25 09/07/25 04:02 04:02 04:02 WBC RBC Hgb Hct MCV MCH MCHC RDW Std Deviation RDW Coeff of Amara Plt Count MPV Immature Gran % (Auto) Neut % (Auto) Lymph % (Auto) [place] % (Auto) Eos % (Auto) Baso % (Auto) Neut # (Auto) Lymph # (Auto) [place] # (Auto) Eos # (Auto) Baso # (Auto) Immature Gran # (Auto) Absolute Nucleated RBC Nucleated RBC % (auto) Polychromasia Hypochromasia PT INR APTT PTT Ratio ABG pH ABG pCO2 ABG pO2 ABG HCO3 ABG O2 Saturation ABG Base Excess David Test VBG pH VBG pCO2 VBG pO2 VBG HCO3 VBG O2 Saturation VBG Base Excess Oxygen Given Sodium Potassium Chloride Carbon Dioxide 23 Anion Gap 14 H 14 H BUN 74 H 74 H Creatinine 2.34 H Est Cr Clr Drug Dosing eGFR BUN/Creatinine Ratio Glucose POC Glucose Lactate Calcium Magnesium Total Bilirubin AST ALT Alkaline Phosphatase Ammonia Total Protein Albumin Globulin Albumin/Globulin Ratio 09/07/25 09/07/25 09/07/25 04:02 04:02 04:02 WBC RBC Hgb Hct MCV MCH MCHC RDW Std Deviation RDW Coeff of Amara Plt Count MPV Immature Gran % (Auto) Neut % (Auto) Lymph % (Auto) [place] % (Auto) Eos % (Auto) Baso % (Auto) Neut # (Auto) Lymph # (Auto) [place] # (Auto) Eos # (Auto) Baso # (Auto) Immature Gran # (Auto) Absolute Nucleated RBC Nucleated RBC % (auto) Polychromasia Hypochromasia PT INR APTT PTT Ratio ABG pH ABG pCO2 ABG pO2 ABG HCO3 ABG O2 Saturation ABG Base Excess David Test VBG pH VBG pCO2 VBG pO2 VBG HCO3 VBG O2 Saturation VBG Base Excess Oxygen Given Sodium Potassium Chloride Carbon Dioxide Anion Gap BUN Creatinine 2.31 H Est Cr Clr Drug Dosing 15.5 15.7 eGFR 20.40 20.72 BUN/Creatinine Ratio 31.6 H Glucose POC Glucose Lactate Calcium Magnesium Total Bilirubin AST ALT Alkaline Phosphatase Ammonia Total Protein Albumin Globulin Albumin/Globulin Ratio 09/07/25 09/07/25 09/07/25 04:02 04:02 04:02 WBC RBC Hgb Hct MCV MCH MCHC RDW Std Deviation RDW Coeff of Amara Plt Count MPV Immature Gran % (Auto) Neut % (Auto) Lymph % (Auto) [place] % (Auto) Eos % (Auto) Baso % (Auto) Neut # (Auto) Lymph # (Auto) [place] # (Auto) Eos # (Auto) Baso # (Auto) Immature Gran # (Auto) Absolute Nucleated RBC Nucleated RBC % (auto) Polychromasia Hypochromasia PT INR APTT PTT Ratio ABG pH ABG pCO2 ABG pO2 ABG HCO3 ABG O2 Saturation ABG Base Excess David Test VBG pH VBG pCO2 VBG pO2 VBG HCO3 VBG O2 Saturation VBG Base Excess Oxygen Given Sodium Potassium Chloride Carbon Dioxide Anion Gap BUN Creatinine Est Cr Clr Drug Dosing eGFR BUN/Creatinine Ratio 32.0 H Glucose 71 73 POC Glucose Lactate Calcium 8.6 8.5 L Magnesium 3.7 H Total Bilirubin 0.5 AST 86 H ALT 58 H Alkaline Phosphatase 435 H Ammonia Total Protein 5.7 L Albumin 2.7 L Globulin 3.0 Albumin/Globulin Ratio 0.9 09/07/25 09:55 WBC RBC Hgb Hct MCV MCH MCHC RDW Std Deviation RDW Coeff of Amara Plt Count MPV Immature Gran % (Auto) Neut % (Auto) Lymph % (Auto) [place] % (Auto) Eos % (Auto) Baso % (Auto) Neut # (Auto) Lymph # (Auto) [place] # (Auto) Eos # (Auto) Baso # (Auto) Immature Gran # (Auto) Absolute Nucleated RBC Nucleated RBC % (auto) Polychromasia Hypochromasia PT INR APTT PTT Ratio ABG pH ABG pCO2 ABG pO2 ABG HCO3 ABG O2 Saturation ABG Base Excess David Test VBG pH 7.42 H VBG pCO2 32 L VBG pO2 61 VBG HCO3 21 VBG O2 Saturation 89.7 VBG Base Excess -3.3 Oxygen Given Sodium Potassium Chloride Carbon Dioxide Anion Gap BUN Creatinine Est Cr Clr Drug Dosing eGFR BUN/Creatinine Ratio Glucose POC Glucose Lactate 1.7 Calcium Magnesium Total Bilirubin AST ALT Alkaline Phosphatase Ammonia Total Protein Albumin Globulin Albumin/Globulin Ratio Diagnostic Findings XR chest 1V portable: COMPARISON: 09/04/2025 FINDINGS: Midline sternotomy wires are noted. Pulmonary Parenchyma: A new finding of an ill-defined, patchy area of airspace opacities is seen at the perihilar region, right middle, and both lower lung zones, with greater involvement on the right side. Prominent bilateral bronchovascular markings are present. There is obliteration of both costophrenic angles, likely representing pleural effusion, more pronounced on the right side. Heart and Mediastinum: Mild cardiomegaly is present. No mediastinal widening or masses are identified. No hilar or mediastinal lymphadenopathy is seen. Bony Thorax: The bony thorax appears intact without fractures or deformities. Soft Tissues: The soft tissues overlying the chest wall are unremarkable. IMPRESSION: 1. New interval finding of bilateral patchy opacification, mainly in the right lower zone. Possible pulmonary edema versus infectious process, according to clinical evaluation. 2. Obliteration of both costophrenic angles, likely due to pleural effusion (more pronounced on the right side). 3. Mild cardiomegaly. PG Care Time/CCT Total # of Minutes Spent Total Time Spent with Patient: Total time spent is greater than 50% in coordination of care (as documented) at patient's floor/unit and/or counseling patient: Coding Level of Care Code 49710 IN/OBS CONSULT LVL 4,60M Diagnoses BRITTON (acute kidney injury) N17.9 Listerial sepsis A32.7 Bacteremia R78.81 Right heart failure I50.810 Anemia D64.9
--- NOTE | 2025-09-07 13:23 | Hospitalist Progress Note ---
Date of Service September 07, 2025 Assessment & Plan (1) Shock: (2) Bradycardia: (3) Hypothermia: (4) Elevated troponin: (5) Metabolic acidosis: Plan The patient is a 80-year-old female who follows with physicians at [facility]. 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 Records have been requested through [facility], and will be addressed when they arrive. The patient herself was not able to contribute to HPI or review of systems due to acute physical and mental state. The patient presented to the emergency department with altered mentation, severe bradycardia, hypothermia, hypoglycemia, several electrolyte disturbances, metabolic acidosis, and COPD exacerbation. Her heart rate was in the 20s upon arrival, which point she was immediately externally paced and started on Levophed infusion by the ED, while waiting for laboratory evaluation to return. Blood pressure upon arrival was 70s/50s, and temperature was 31.7. Patient was placed on Andrew hugger. Correction of laboratory abnormalities left to the ICU consult team saw the filippo ent in the ED. She was transcutaneous paced with capture at 40 N/A, at a rate of 70. Laboratories revealed a bicarb of 12, potassium 6.4, gap 23, magnesium 4.6. She was given 1 L crystalloid, 1 amp of bicarb, 1 g calcium gluconate, 1 g of calcium chloride. She was given 250 mL of D10. She received an additional amp of bicarbonate 50 mill equivalents 8.4%, then started on a bicarb infusion and dextrose at 175 mL/h. She received another liter of normal saline. Patient had improvement in heart rate to the 80-90s, and systolic blood pressure up to 120. She was transferred to the ICU with further treatment to be performed there. #Shock - resolved #Bradycardia - initially externally paced and on levophed- currently discontinued - pt now off of pressors, HR still in the 30s to 40s, but BP improved - TSH: 5.501 - Trop: 151.6 > 162 (likely demand) - ECHO (09/05): EF: 60-65%, mod dilated RV with mildly reduced systolic fn, severe biatrial dilation, mild MR, mod TR, mod pulm HTN, RVSP 58mmHg - cardiology on board - recs possible PPM placement, pt started on isoproterenol with improvement in hemodynamics #Possible sepsis #Listeria bacteremia - initially on zosyn / Dapto - BCx: growing listeria in 02/14, will repeat BCx - cont ampicillin, bactrim on hold, requested ID eval #CAD #AVR #Thoracic aortic aneurysm - s/p repair - cont aspirin #Anion gap metabolic acidosis #Hyperkalemia - resolved #BRITTON on CKD #Hypervolemia - Cr: 1.39 (07/18/25) - worsening Cr due to shock, trending up, Na trending down - diuretic initiated with isoproterenol support - nephro recs appreciated #Acute hypoxia - due to volume - CXR: b/l patchy opacification, mainly RLL, possible pulmonary edema vs infectious process, mild cardiomegaly - diuresis ongoing - wean HFNC as tolerated - ICU support appreciated #Acute metabolic encephalopathy - pt's daughter stated that pt gets confused easily with increased stress - in the setting of bradycardia, hypotension, hypoxia, uremia - currently requiring soft mitts - cont supportive care #Poor appetite - will request RD to eval #HTN - home meds: amlodipine - currently on hold #COPD #h/o lung ca s/o RML wedge resection - cont duoneb prn #HLD - atorvastatin #GERD - cont ppi #Hypothermia - on admission T: 31.7C - s/p andrew stewarter, Temp much improved DVT ppx - heparin subq Dispo- pending clinical improvement 09/07: spoke with pt's daughter George ([phone]) Admission and Anticipated Discharge Date Admission Date: September 05, 2025 Subjective Hypoxia overnight - combination of volume overload, bradycardia and borderline BP Pt received a dose of diuretic Cardiology this morning started pt on Isoproterenol with normalization of her BP and HR Pt remains confused (daughter stated that she gets confused easily when she is stressed). Review of Systems Review of Systems: Comprehensive ROS completed and is otherwise negative. Physical Exam Physical Exam: Gen: no acute distress, lying in bed comfortable HEENT: NC/AT, MMM Lungs: nonlabored breathing, remains clear b/l though diffusely diminished CVS: s1s2nl, RRR Abd: nl bowel sounds, soft, NT / ND : + díaz Ext: no edema Neuro: AAOx2 (person, sep 2025- but thinks she is in her living room), situationally confused Psych: restless, intermittently agitated Results & Data Results & Data Vital Signs (Past 12 Hours) Vital Signs Temp Pulse Pulse Resp BP BP Pulse Ox 09/07/25 11:00 36.9 C 60 21 98 09/07/25 11:00 129/47 L 09/07/25 10:44 68 20 94 09/07/25 10:14 130/34 L 09/07/25 10:12 36.6 C 49 L 19 09/07/25 09:03 36.7 C 63 30 H 97 09/07/25 09:00 132/43 L 09/07/25 08:12 36.8 C 41 L 16 99 09/07/25 08:01 108/41 L 09/07/25 07:51 39 L 15 96 09/07/25 07:51 39 L 20 93 09/07/25 07:23 09/07/25 07:00 112/36 L 09/07/25 07:00 36.8 C 39 L 20 93 09/07/25 06:47 39 L 09/07/25 06:45 36.7 C 39 L 22 91 09/07/25 06:30 36.8 C 40 L 21 87 L 09/07/25 06:20 111/40 L 09/07/25 06:15 36.7 C 37 L 20 85 L 09/07/25 06:00 36.8 C 40 L 18 92 09/07/25 05:54 36.8 C 47 L 19 90 09/07/25 05:27 36.7 C 40 L 18 88 L 09/07/25 05:00 122/52 L 09/07/25 05:00 36.8 C 41 L 17 89 L 09/07/25 04:42 36.8 C 42 L 18 91 09/07/25 04:03 36.8 C 41 L 21 91 09/07/25 04:02 108/35 L 09/07/25 03:57 36.8 C 45 L 21 93 09/07/25 03:39 36.8 C 41 L 24 88 L 09/07/25 03:00 36.9 C 81 30 H 96 09/07/25 02:30 37.0 C 43 L 22 86 L 09/07/25 02:12 37.0 C 42 L 17 90 09/07/25 02:03 43 L 09/07/25 02:01 115/37 L 09/07/25 01:52 43 L 30 H 83 L 09/07/25 01:51 37.0 C 43 L 14 83 L O2 Del Method O2 Flow Rate FiO2 09/07/25 11:00 High Flow Nasal Cannula 20 50 09/07/25 11:00 09/07/25 10:44 High Flow Nasal Cannula 30 75 09/07/25 10:14 09/07/25 10:12 09/07/25 09:03 High Flow Nasal Cannula 30 75 09/07/25 09:00 09/07/25 08:12 09/07/25 08:01 09/07/25 07:51 09/07/25 07:51 High Flow Nasal Cannula 30 75 09/07/25 07:23 Oxymask 15 09/07/25 07:00 09/07/25 07:00 Oxymask 15 09/07/25 06:47 09/07/25 06:45 09/07/25 06:30 09/07/25 06:20 09/07/25 06:15 09/07/25 06:00 09/07/25 05:54 09/07/25 05:27 09/07/25 05:00 09/07/25 05:00 09/07/25 04:42 09/07/25 04:03 09/07/25 04:02 09/07/25 03:57 09/07/25 03:39 09/07/25 03:00 09/07/25 02:30 09/07/25 02:12 09/07/25 02:03 09/07/25 02:01 09/07/25 01:52 Oxymask 15 09/07/25 01:51 PG Care Time/CCT Total # of Minutes Spent Total Time Spent with Patient: Total time spent is greater than 50% in coordination of care (as documented) at patient's floor/unit and/or counseling patient: Coding Level of Care Code 83807 SUB INP/OBS CARE 3/50MIN Diagnoses Shock R57.9 Bradycardia R00.1 Hypothermia T68.XXXA Elevated troponin R79.89 Metabolic acidosis E87.20
--- NOTE | 2025-09-07 15:38 | Cardiology Progress Note ---
Date of Service September 07, 2025 Assessment & Plan (1) Complete heart block: (2) Junctional bradycardia: (3) Elevated troponin: (4) Tricuspid regurgitation: (5) HTN (hypertension): (6) S/P thoracic aortic aneurysm repair: Plan ASSESSMENT/PLAN: 1. Complete heart block and junctional bradycardia: We provided an isoproterenol infusion and attempt to increase heart rate and forward flow. Primarily to reduce any concerns about pulmonary vascular congestion and renal dysfunction. Hemodynamically otherwise stable. The plan is for permanent pacemaker. I do not think there is a well-defined reversible cause despite having a narrow complex QRS. I did discuss the procedure with the patient in the presence of her . I described the risks, benefits and alternatives. He signed a witness consent form and we will plan on proceeding tomorrow with the earliest opportunity depending on her clinical status. 2. Elevated troponin: Likely due to demand ischemia as she was quite ill on presentation. No symptoms consistent with an acute coronary syndrome. 3. Tricuspid regurgitation: At least moderate on echo. Some images suggest that perhaps the tricuspid valve does not fully coapt during systole. This can certainly be contributing to her lower extremity edema. Can be followed in the outpatient setting. 4. Thoracic aortic aneurysm s/p repair: Details not well-known at the time of this note. Would avoid fluoroquinolones if able. 5. Hypertension: Normotensive currently. 6. Acute on chronic renal failure: Abnormal but stable. Will try some mild diuresis. Urine output appears adequate and she did respond to intravenous Lasix. 7. Hyperkalemia: Resolved. 8. Hypothermia: Resolved. 9. Pulmonary hypertension: Long history of tobacco abuse. Admission and Anticipated Discharge Date Admission Date: September 05, 2025 Subjective This morning the patient was confused. She did not verbalize any specific complaints. She specifically denied any pain or breathing trouble despite being on high flow nasal cannula. Review of Systems Review of Systems: Unobtainable due to cognitive status Physical Exam Physical Exam: She is alert and oriented x3. Mood affect appear normal. She answered all questions, the validity of which was questionable. Confused at times. HEENT: Sclerae are anicteric. Pupils are equal and reactive to light and accom modation. Extraocular movements were intact. Neuro: Cranial nerves intact Lungs: Decreased breath sounds at the bases. Occasional crackle. No expiratory wheezing. Normal respiratory effort. Cardiac: The rhythm was regular but bradycardic . S1 and S2 were normal. There are no murmurs on examination. The PMI was not markedly displaced on palpation. Extremities: Patient has bilateral radial pulses that are equal in intensity. There is no evidence cyanosis or clubbing. Moderate lower extremity edema. Some dependent edema in the arms. Skin: There are no rashes noted on examination today. Results & Data Vital Signs (Past 12 Hours) Vital Signs Temp Pulse Pulse Resp BP BP Pulse Ox 09/07/25 14:52 69 20 92 09/07/25 11:00 36.9 C 60 21 98 09/07/25 11:00 129/47 L 09/07/25 10:44 68 20 94 09/07/25 10:14 130/34 L 09/07/25 10:12 36.6 C 49 L 19 09/07/25 09:03 36.7 C 63 30 H 97 09/07/25 09:00 132/43 L 09/07/25 08:12 36.8 C 41 L 16 99 09/07/25 08:01 108/41 L 09/07/25 07:51 39 L 15 96 09/07/25 07:51 39 L 20 93 09/07/25 07:23 09/07/25 07:00 112/36 L 09/07/25 07:00 36.8 C 39 L 20 93 09/07/25 06:47 39 L 09/07/25 06:45 36.7 C 39 L 22 91 09/07/25 06:30 36.8 C 40 L 21 87 L 09/07/25 06:20 111/40 L 09/07/25 06:15 36.7 C 37 L 20 85 L 09/07/25 06:00 36.8 C 40 L 18 92 09/07/25 05:54 36.8 C 47 L 19 90 09/07/25 05:27 36.7 C 40 L 18 88 L 09/07/25 05:00 122/52 L 09/07/25 05:00 36.8 C 41 L 17 89 L 09/07/25 04:42 36.8 C 42 L 18 91 09/07/25 04:03 36.8 C 41 L 21 91 09/07/25 04:02 108/35 L 09/07/25 03:57 36.8 C 45 L 21 93 09/07/25 03:39 36.8 C 41 L 24 88 L O2 Del Method O2 Flow Rate FiO2 09/07/25 14:52 High Flow Nasal Cannula 30 75 09/07/25 11:00 High Flow Nasal Cannula 20 50 09/07/25 11:00 09/07/25 10:44 High Flow Nasal Cannula 30 75 09/07/25 10:14 09/07/25 10:12 09/07/25 09:03 High Flow Nasal Cannula 30 75 09/07/25 09:00 09/07/25 08:12 09/07/25 08:01 09/07/25 07:51 09/07/25 07:51 High Flow Nasal Cannula 30 75 09/07/25 07:23 Oxymask 15 09/07/25 07:00 09/07/25 07:00 Oxymask 15 09/07/25 06:47 09/07/25 06:45 09/07/25 06:30 09/07/25 06:20 09/07/25 06:15 09/07/25 06:00 09/07/25 05:54 09/07/25 05:27 09/07/25 05:00 09/07/25 05:00 09/07/25 04:42 09/07/25 04:03 09/07/25 04:02 09/07/25 03:57 09/07/25 03:39 Laboratory Results Abnormal Lab Results 09/06/25 09/06/25 09/06/25 16:28 18:16 23:45 WBC RBC Hgb Hct MCV MCH MCHC RDW Std Deviation RDW Coeff of Amara Plt Count MPV Immature Gran % (Auto) Neut % (Auto) Lymph % (Auto) Harmon % (Auto) Eos % (Auto) Baso % (Auto) Neut # (Auto) Lymph # (Auto) Harmon # (Auto) Eos # (Auto) Baso # (Auto) Immature Gran # (Auto) Absolute Nucleated RBC Nucleated RBC % (auto) Polychromasia Hypochromasia PT INR APTT PTT Ratio ABG pH ABG pCO2 ABG pO2 ABG HCO3 ABG O2 Saturation ABG Base Excess David Test VBG pH VBG pCO2 VBG pO2 VBG HCO3 VBG O2 Saturation VBG Base Excess Oxygen Given Sodium 132 L Potassium 5.1 Chloride 95 L Carbon Dioxide 22 Anion Gap 15 H BUN 72 H Creatinine 2.37 H Est Cr Clr Drug Dosing 15.3 eGFR 20.10 BUN/Creatinine Ratio 30.4 H Glucose 79 POC Glucose 91 79 Lactate Calcium 8.5 L Magnesium 3.9 H Total Bilirubin AST ALT Alkaline Phosphatase Ammonia 30.0 Total Protein Albumin Globulin Albumin/Globulin Ratio 09/07/25 09/07/25 09/07/25 03:21 04:02 04:02 WBC 15.88 H RBC 3.12 L Hgb 7.6 L Hct 24.6 L MCV 78.8 L MCH 24.4 L MCHC 30.9 L RDW Std Deviation 47.1 H RDW Coeff of Amara 17.5 H Plt Count 383 MPV 9.5 Immature Gran % (Auto) 0.6 Neut % (Auto) 88.5 Lymph % (Auto) 5.9 Harmon % (Auto) 4.9 Eos % (Auto) 0.0 Baso % (Auto) 0.1 Neut # (Auto) 14.06 H Lymph # (Auto) 0.94 L Harmon # (Auto) 0.78 H Eos # (Auto) 0.00 Baso # (Auto) 0.01 Immature Gran # (Auto) 0.09 Absolute Nucleated RBC 0.05 Nucleated RBC % (auto) 0.3 Polychromasia 1+ Hypochromasia Present PT 16.6 H INR 1.6 H APTT 31 PTT Ratio 1.1 ABG pH 7.46 H ABG pCO2 33 L ABG pO2 65 L ABG HCO3 24 ABG O2 Saturation 92.3 ABG Base Excess 0.3 David Test Pos VBG pH VBG pCO2 VBG pO2 VBG HCO3 VBG O2 Saturation VBG Base Excess Oxygen Given 10L Sodium 133 L 133 L Potassium 4.7 Chloride Carbon Dioxide Anion Gap BUN Creatinine Est Cr Clr Drug Dosing eGFR BUN/Creatinine Ratio Glucose POC Glucose Lactate Calcium Magnesium Total Bilirubin AST ALT Alkaline Phosphatase Ammonia Total Protein Albumin Globulin Albumin/Globulin Ratio 09/07/25 09/07/25 09/07/25 04:02 04:02 04:02 WBC RBC Hgb Hct MCV MCH MCHC RDW Std Deviation RDW Coeff of Amara Plt Count MPV Immature Gran % (Auto) Neut % (Auto) Lymph % (Auto) Harmon % (Auto) Eos % (Auto) Baso % (Auto) Neut # (Auto) Lymph # (Auto) Harmon # (Auto) Eos # (Auto) Baso # (Auto) Immature Gran # (Auto) Absolute Nucleated RBC Nucleated RBC % (auto) Polychromasia Hypochromasia PT INR APTT PTT Ratio ABG pH ABG pCO2 ABG pO2 ABG HCO3 ABG O2 Saturation ABG Base Excess David Test VBG pH VBG pCO2 VBG pO2 VBG HCO3 VBG O2 Saturation VBG Base Excess Oxygen Given Sodium Potassium 4.7 Chloride 96 L 96 L Carbon Dioxide 23 23 Anion Gap 14 H BUN Creatinine Est Cr Clr Drug Dosing eGFR BUN/Creatinine Ratio Glucose POC Glucose Lactate Calcium Magnesium Total Bilirubin AST ALT Alkaline Phosphatase Ammonia Total Protein Albumin Globulin Albumin/Globulin Ratio 09/07/25 09/07/25 09/07/25 04:02 04:02 04:02 WBC RBC Hgb Hct MCV MCH MCHC RDW Std Deviation RDW Coeff of Amara Plt Count MPV Immature Gran % (Auto) Neut % (Auto) Lymph % (Auto) Harmon % (Auto) Eos % (Auto) Baso % (Auto) Neut # (Auto) Lymph # (Auto) Harmon # (Auto) Eos # (Auto) Baso # (Auto) Immature Gran # (Auto) Absolute Nucleated RBC Nucleated RBC % (auto) Polychromasia Hypochromasia PT INR APTT PTT Ratio ABG pH ABG pCO2 ABG pO2 ABG HCO3 ABG O2 Saturation ABG Base Excess David Test VBG pH VBG pCO2 VBG pO2 VBG HCO3 VBG O2 Saturation VBG Base Excess Oxygen Given Sodium Potassium Chloride Carbon Dioxide Anion Gap 14 H BUN 74 H 74 H Creatinine 2.34 H 2.31 H Est Cr Clr Drug Dosing 15.5 eGFR BUN/Creatinine Ratio Glucose POC Glucose Lactate Calcium Magnesium Total Bilirubin AST ALT Alkaline Phosphatase Ammonia Total Protein Albumin Globulin Albumin/Globulin Ratio 09/07/25 09/07/25 09/07/25 04:02 04:02 04:02 WBC RBC Hgb Hct MCV MCH MCHC RDW Std Deviation RDW Coeff of Amara Plt Count MPV Immature Gran % (Auto) Neut % (Auto) Lymph % (Auto) Harmon % (Auto) Eos % (Auto) Baso % (Auto) Neut # (Auto) Lymph # (Auto) Harmon # (Auto) Eos # (Auto) Baso # (Auto) Immature Gran # (Auto) Absolute Nucleated RBC Nucleated RBC % (auto) Polychromasia Hypochromasia PT INR APTT PTT Ratio ABG pH ABG pCO2 ABG pO2 ABG HCO3 ABG O2 Saturation ABG Base Excess David Test VBG pH VBG pCO2 VBG pO2 VBG HCO3 VBG O2 Saturation VBG Base Excess Oxygen Given Sodium Potassium Chloride Carbon Dioxide Anion Gap BUN Creatinine Est Cr Clr Drug Dosing 15.7 eGFR 20.40 20.72 BUN/Creatinine Ratio 31.6 H 32.0 H Glucose 71 POC Glucose Lactate Calcium Magnesium Total Bilirubin AST ALT Alkaline Phosphatase Ammonia Total Protein Albumin Globulin Albumin/Globulin Ratio 09/07/25 09/07/25 09/07/25 04:02 04:02 09:55 WBC RBC Hgb Hct MCV MCH MCHC RDW Std Deviation RDW Coeff of Amara Plt Count MPV Immature Gran % (Auto) Neut % (Auto) Lymph % (Auto) Harmon % (Auto) Eos % (Auto) Baso % (Auto) Neut # (Auto) Lymph # (Auto) Harmon # (Auto) Eos # (Auto) Baso # (Auto) Immature Gran # (Auto) Absolute Nucleated RBC Nucleated RBC % (auto) Polychromasia Hypochromasia PT INR APTT PTT Ratio ABG pH ABG pCO2 ABG pO2 ABG HCO3 ABG O2 Saturation ABG Base Excess David Test VBG pH 7.42 H VBG pCO2 32 L VBG pO2 61 VBG HCO3 21 VBG O2 Saturation 89.7 VBG Base Excess -3.3 Oxygen Given Sodium Potassium Chloride Carbon Dioxide Anion Gap BUN Creatinine Est Cr Clr Drug Dosing eGFR BUN/Creatinine Ratio Glucose 73 POC Glucose Lactate 1.7 Calcium 8.6 8.5 L Magnesium 3.7 H Total Bilirubin 0.5 AST 86 H ALT 58 H Alkaline Phosphatase 435 H Ammonia Total Protein 5.7 L Albumin 2.7 L Globulin 3.0 Albumin/Globulin Ratio 0.9 09/07/25 12:37 WBC RBC Hgb Hct MCV MCH MCHC RDW Std Deviation RDW Coeff of Amara Plt Count MPV Immature Gran % (Auto) Neut % (Auto) Lymph % (Auto) Harmon % (Auto) Eos % (Auto) Baso % (Auto) Neut # (Auto) Lymph # (Auto) Harmon # (Auto) Eos # (Auto) Baso # (Auto) Immature Gran # (Auto) Absolute Nucleated RBC Nucleated RBC % (auto) Polychromasia Hypochromasia PT INR APTT PTT Ratio ABG pH ABG pCO2 ABG pO2 ABG HCO3 ABG O2 Saturation ABG Base Excess David Test VBG pH VBG pCO2 VBG pO2 VBG HCO3 VBG O2 Saturation VBG Base Excess Oxygen Given Sodium Potassium Chloride Carbon Dioxide Anion Gap BUN Creatinine Est Cr Clr Drug Dosing eGFR BUN/Creatinine Ratio Glucose POC Glucose 140 H Lactate Calcium Magnesium Total Bilirubin AST ALT Alkaline Phosphatase Ammonia Total Protein Albumin Globulin Albumin/Globulin Ratio PG Care Time/CCT Total # of Minutes Spent Total Time Spent with Patient: Total time spent is greater than 50% in coordination of care (as documented) at patient's floor/unit and/or counseling patient: Coding Level of Care Code 10245 SUB INP/OBS CARE 3/50MIN Diagnoses Complete heart block I44.2 Junctional bradycardia R00.1 Elevated troponin R79.89 Tricuspid regurgitation I07.1 HTN (hypertension) I10 S/P thoracic aortic aneurysm repair Z98.890; Z86.79
[2025-09-07 17:32] LABS: Hematocrit (blood only) 22.3 % (37.0-47.0); Hemoglobin 7.1 g/dl (12.0-16.0)
[2025-09-07 17:51] LABS: Alanine Aminotransferase 50.0 U/L (7-52); Albumin Globulin Ratio 1.0 (0.9-2); Albumin Level 2.8 gm/dl (3.4-5.0); Alkaline Phosphatase 336.0 U/L (34-104); Anion Gap 12.0 (3-11); Bilirubin,Total 0.5 mg/dl (0.2-1.0); Blood Urea Nitrogen 71.0 mg/dl (6-23); Calcium 8.3 mg/dl (8.6-10.3); Carbon Dioxide 24.0 mmol/L (21-32); Chloride 95.0 mmol/L (98-107); Creatinine Clr Calc Pharmacy 15.5 ml/min; Globulin 2.8 gm/dl (2.5-4.0); Glucose 138.0 mg/dl (70-99(Fasting)); Potassium 4.0 mmol/L (3.5-5.1); Sodium 131.0 mmol/L (136-145); Total Protein 5.6 gm/dl (6.0-8.3)
[2025-09-08] MEDS: BUMETANIDE 1 MG in SYRINGE 0 ML IV ONE (00:11)
[2025-09-08] MEDS: DEXTROSE 50% 50 ML SYRINGE IV PRN (00:19)
[2025-09-08] MEDS: D5W AND LACTATED RINGERS 1,000 ML IV SCH (02:06)
[2025-09-08 02:43] LABS: Anion Gap 15.0 (3-11); Blood Urea Nitrogen 76.0 mg/dl (6-23); Calcium 8.1 mg/dl (8.6-10.3); Carbon Dioxide 22.0 mmol/L (21-32); Chloride 95.0 mmol/L (98-107); Creatinine Clr Calc Pharmacy 13.1 ml/min; Glucose 137.0 mg/dl (70-99(Fasting)); Potassium 5.0 mmol/L (3.5-5.1); Sodium 132.0 mmol/L (136-145)
[2025-09-08] MEDS: BUMETANIDE 10 MG in DEXTROSE 5% 10 ML IV SCH (02:43)
[2025-09-08 02:50] LABS: Alanine Aminotransferase 58.0 U/L (7-52); Albumin Level 2.6 gm/dl (3.4-5.0); Alkaline Phosphatase 416.0 U/L (34-104); Bilirubin,Total 0.8 mg/dl (0.2-1.0); Total Protein 5.3 gm/dl (6.0-8.3)
[2025-09-08] MEDS ORDERED: STAT IV Infusion **Titration per Protocol STA ×3 (03:06→10:29)
--- NOTE | 2025-09-08 03:52 | Communication Note ---
Date of Service: September 08, 2025 0324: Alesia unfortunately continues to decline from an encephalopathy, pulmonary, renal, liver, and cardiac standpoint. Through the day she has had continued to have hypoxia, bradycardia that had been supported with isoprel but without much change to renal function or urine output. She had received a dose of Lasix and Bumex over the past 24 hours and initially had a response with ~ 50-100 ml per urine every hour. Her renal function continued to increase. Through ton she had no urine output at midnight and was given another dose of Bumex without response, and around midnight as well Alesia blood glucose was noted in the 44. She had received dextrose IV and within 1.5 hours she was hypoglycemic again. Dextrose IVF as well as D5 had been added as well as a Bumex drip. CMP was evaluated with concern for worsening renal function and liver function secondary to volume overload, and this confirmed such with worsening of renal function to [employer] of 2.79, LFTS with AST 102 (70) ALT 58 (50). 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 Garcia in regards to adding a inotropic agent - [facility] we have went with Dopamine with hopes of increasing her HR as well - She did not have much clinical response from Isuprel even up to 10mcg/min - Called and discussed patient's clinical state with daughter George- we discussed current state of multiorgan failure and support currently needed - points of discussion are that she is clinically not responding well and if she continues to not respond then will require advanced therapies as likely - intubation with mechanical ventilation, HOME HEALTH TRAVEL OT, Temp/permanent pacemaker. I discussed that concerns that Alesia may not have the strength as well with her underlying pulmonary disease to be able to be liberated from mechanical ventilation, as well as dialysis may make her volume status better and electrolytes, however she may not be able to tolerate the volume shifts and hemodynamic support required to receive dialysis as well as likely unable to tolerate procedure for dialysis line placement. If she were to proceed with TVP today, this may likely need to be done at the bedside in the ICU with full support on standby as not sure she would be able to lay flat for procedure. - I feel that we are likely heading toward end of life and even if full life support were employed, quality of life if she were to survive such would be severely effected. - Alesia will call her step-dad Avtar and update him on Alesia's status and try to get here early this morning for discussion with goals of care and extent of support. 2.) hypoglycemic - secondary to hepatic failure from sepsis and hepatic congestion from volume overload.- D5 infusion at 90ml/hr- if continues to be low - D10 and steroids - unfortunately this will also add more intravenous volume. 3.) Renal failure- acid base status acceptable, electrolytes stable at this time, however potassium starting to increase-( 5.0), and hypoxia is worsening with volume overload. Dialysis unlikely to tolerate from hemodyanmic standpoint as well as tolerate getting dialysis line without intubation. Intubation at this time as well would likely carry risk of arrest as well 0430- patient continues with decreasing HR in the 30s Dopamine at 12.5mcg/kg/ min- will revert to TCP at 70-80 with hopes of increasing her CO. Underlying rhythm at this time appears to be slow aflutter/fib. If needs BP support while TCP will transition Doapmine to LEVOphed. - BG has been stable while on D10. - George updated over phone and again re-iterated that she is in multiorgan failure and likely is actively dying, even with intubation and mechanical ventilation, she is likely to arrest during the intubation process as she has such poor oxygen reserve as well as hemodynamic reserve. She wants to discuss this with her step-father, patient's Avtar and her brothers. We will continue supporting care with full code at this time. 0600- no change in above. Dopamine off, maintaining on LEVO and TCP. Awaiting Family arrival to further discuss goals of care and supportive care. Addend: 2415- Avtar and Daughter George arrived to bedside. We again discussed the above to include therapies such as TVP, Dialysis, Intubation and Mechanical Ventilation. We reviewed her health state before comming to hospital and as well as now with progression of multiple organs failing. In short, We discussed the risks of above procedures, all of which would likely require the patient to be intubated prior to being able to safely perform either, and with her underlying lung disease, poor nutritional reserve, and overall state, it is likely that she would not be able to be liberated as above. They understand that she is likely to arrest during any of the above procedures. They were given options of what comfort care would progress as. They are spending time with Alesia at this time, and we will re-engage in a few minutes to discuss goals of care and code status. Geronimo HALL (ACNP-)
[2025-09-08] MEDS: DEXTROSE 10% 1,000 ML IV SCH (04:18)
[2025-09-08 04:21] LABS: iSTAT Art Bld Gas Base Excess -6.0 mmol/L (-9-1.8); iSTAT Art Bld Gas pCO2 Correct 52 mmHg (35-46); iSTAT Art Bld Gas pH Corrected 7.236 (7.35-7.45); iSTAT Arterial Blood Gas pO2 C 72
[2025-09-08] MEDS: NOREPINEPHRINE/D5W 4 MG/250 ML PLCT IV SCH (05:11)
[2025-09-08] MEDS ORDERED: Nursing to Pharmacy Communication SCH (05:15)
[2025-09-08 05:27] LABS: Hematocrit (blood only) 23.0 % (37.0-47.0); Hemoglobin 7.2 g/dl (12.0-16.0); Mean Corpuscular Hemoglobin 25.4 pg (25.0-34.0); Mean Corpuscular Volume 81.0 fL (80.0-100.0); Platelet Count 355 K/uL (130-400); RDW Standard Deviation 49.4 fL (36.4-46.3); Red Blood Count 2.84 M/uL (4.20-5.40); White Blood Count 23.21 K/ul (4.8-10.8)
[2025-09-08 05:42] LABS: Anion Gap 14.0 (3-11); Blood Urea Nitrogen 74.0 mg/dl (6-23); Calcium 8.6 mg/dl (8.6-10.3); Carbon Dioxide 23.0 mmol/L (21-32); Chloride 94.0 mmol/L (98-107); Creatinine Clr Calc Pharmacy 13.1 ml/min; Glucose 88.0 mg/dl (70-99(Fasting)); Magnesium 3.6 mg/dl (1.7-2.4); Potassium 4.8 mmol/L (3.5-5.1); Sodium 131.0 mmol/L (136-145)
[2025-09-08 05:57] LABS: Partial Thromboplastin Time 33 Seconds (21-31)
[2025-09-08 06:39] LABS: INR 1.7 (0.9-1.1); Prothrombin Time 17.4 Seconds (9.0-12.0)
--- NOTE | 2025-09-08 07:20 | XRay Report ---
EXAM: XR chest 1V portable CLINICAL HISTORY: eval lung becker/effusions TECHNIQUE: An X-ray image of the chest was obtained in the AP projection. COMPARISON: 02:07:34 COMMUNICATIONS TECH FINDINGS: Ill-defined parenchymal opacities are noted involving right midzone - suggestive of pneumonic consolidation. Similar small patchy consolidations are also noted in left midzone. Blunting of bilateral costophrenic angles; more on right - suggest possibility of pleural effusion. Remaining lungs are clear. Cardiomegaly. Sternal sutures noted. No acute osseous abnormality. IMPRESSION: Ill-defined parenchymal opacities are noted involving right midzone - suggestive of pneumonic consolidation. Similar small patchy consolidations are also noted in left midzone.-new finding. Blunting of bilateral costophrenic angles; more on right - suggest possibility of pleural effusion. Remaining lungs are clear.-stable. Cardiomegaly.-stable. Sternal sutures noted. Electronically signed by [place] Ring 09-08-2025 07:19 AM
--- NOTE | 2025-09-08 07:32 | Critical Care Progress Note ---
Date of Service September 08, 2025 Assessment & Plan (1) Shock: Plan: Listeria bacteremia. Cannot rule out infection of previously sites surgery (valva, Aortic-aneurysm stent). Urptb-lojnz-oipeyu failure. Treatment seems futile. (2) Bradycardia: (3) Hypoglycemia: (4) CKD stage 3b, GFR 30-44 ml/min: (5) Electrolyte abnormality: Plan Discussions with the patient's family focused on goals of care, with conside ration for comfort measures. The family were initially awaiting contact with one of the patient's sons. Later, the family requested discussion. Her whole family (, 2 sons, and daughter) were present. They requested to move ahead with comfort-measures. I explained to them withdrawing medications and any further cardiac-pacing. I explained to them that the patient would receive medications for signs of discomfort or air-hunger. I explained to them that these measures may result in quick loss of blood-pressure and pulse. They verbalized understanding. Code status changed to DNR/DNI per family's request, and comfort-measures orders instated. Medications not essential for comfort were discontinued. Oxygen provided via nasal-cannula for comfort. Admission and Anticipated Discharge Date Admission Date: September 05, 2025 Subjective The patient is an 80-year-old lady who presented to the ED with altered mentation, severe bradycardia, hypothermia (temperature 31.7C), hypoglycemia, multiple electrolyte disturbances, and metabolic acidosis. Upon arrival, she was found to be in shock with hypotension (BP 70s/50s) and required immediate transcutaneous pacing and vasopressor support (Levophed). She was also placed on a Nunu Hugger for hypothermia management. She received aggressive resuscitation with IV fluids, bicarbonate, calcium, and dextrose, resulting in improvement in her heart rate and blood pressure. 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 Her hospital course was further complicated by metabolic encephalopathy, anemia, and supratherapeutic INR. Despite initial improvement, she experienced clinical decline with worsening respiratory distress, persistent bradycardia, and reduced urine output. This morning the patient was resumed on Isoproterenol by Dr. Garcia from Cardiology. Discussions with the patient's family focused on goals of care, with consideration for comfort measures. The family were initially awaiting contact with one of the patient's sons. Later, the family requested discussion. Her whole family (, 2 sons, and daughter) were present. They requested to move ahead with comfort-measures. I explained to them withdrawing medications and any further cardiac-pacing. I explained to them that the patient would receive medications for signs of discomfort or air-hunger. I explained to them that these measures may result in quick loss of blood-pressure and pulse. They verbalized understanding. Review of Systems Review of Systems: Unobtainable due to reduced consciousness Physical Exam Physical Exam: Vitals and labs reviewed. General: In no acute distress (was in distress earlier), using Oxygenvia high- flow nasal cannula. Eyes: Anicteric.Noconjunctival hyperemia or exudates. Respiratory: Diffusely decreased breath sounds, no wheezing. Scattered coarse sounds. Cardiac: Bradycardic, regular rhythm, no murmurs, no gallops, no rubs. GI: Soft. Extremities No cyanosis,diffuse upper and lower extremity edema. Neuro: Open eyes to pain. Results & Data Results & Data Vital Signs (Past 12 Hours) Vital Signs Temp Pulse Pulse Resp BP Pulse Ox O2 Del Method 09/08/25 07:05 48 L 28 H 92 High Flow Nasal Cannula 09/08/25 06:36 93/36 L 09/08/25 06:36 93/36 L 09/08/25 06:36 38.0 C H 88 21 92 09/08/25 06:33 38.0 C H 88 19 93 09/08/25 06:31 116/37 L 09/08/25 06:31 116/37 L 09/08/25 06:31 116/37 L 09/08/25 06:31 116/37 L 09/08/25 06:31 116/37 L 09/08/25 06:24 38.0 C H 93 H 26 H 92 09/08/25 06:22 103/36 L 09/08/25 06:21 38.1 C H 89 30 H 93 09/08/25 06:16 106/37 L 09/08/25 06:12 38.1 C H 89 19 92 09/08/25 06:07 110/34 L 09/08/25 06:07 110/34 L 09/08/25 06:07 110/34 L 09/08/25 06:06 38.1 C H 87 22 92 09/08/25 05:50 113/54 L 09/08/25 05:50 113/54 L 09/08/25 05:48 112/33 L 09/08/25 05:42 38.0 C H 82 34 H 93 High Flow Nasal Cannula 09/08/25 05:42 96/29 L 09/08/25 05:33 38.0 C H 84 16 95 09/08/25 05:31 109/25 L 09/08/25 05:31 109/25 L 09/08/25 05:26 113/28 L 09/08/25 05:21 38.0 C H 79 21 93 09/08/25 05:16 104/30 L 09/08/25 05:12 38.0 C H 85 18 95 09/08/25 05:11 99/32 L 09/08/25 05:00 38.0 C H 80 18 96 High Flow Nasal Cannula 09/08/25 04:49 92/27 L 09/08/25 04:48 37.9 C H 64 16 96 09/08/25 04:45 37.9 C H 68 14 96 09/08/25 04:41 108/24 L 09/08/25 04:39 37.9 C H 77 15 99 09/08/25 04:36 115/25 L 09/08/25 04:28 97/37 L 09/08/25 04:00 107/31 L 09/08/25 04:00 107/31 L 09/08/25 03:51 37.8 C H 40 L 14 88 L 09/08/25 03:48 37.8 C H 40 L 11 L 88 L 09/08/25 03:30 37.8 C H 47 L 22 90 09/08/25 03:19 56 L 28 H 91 High Flow Nasal Cannula 09/08/25 03:01 102/43 L 09/08/25 03:00 37.8 C H 54 L 20 93 09/08/25 02:48 37.8 C H 51 L 27 H 92 09/08/25 02:30 37.8 C H 51 L 24 92 09/08/25 02:23 92/49 L 09/08/25 02:18 37.8 C H 50 L 24 91 09/08/25 02:15 37.8 C H 49 L 22 93 09/08/25 02:00 37.8 C H 48 L 21 92 09/08/25 01:54 37.8 C H 51 L 24 92 09/08/25 01:15 37.9 C H 56 L 27 H 91 09/08/25 01:05 109/31 L 09/08/25 01:05 51 L 25 H 109/31 L 91 High Flow Nasal Cannula 09/08/25 00:24 37.9 C H 41 L 16 94 09/08/25 00:15 37.8 C H 50 L 15 99 09/08/25 00:01 108/32 L 09/08/25 00:00 37.4 C 50 L 19 98 09/07/25 23:55 52 L 09/07/25 23:48 35.2 C L 51 L 24 99 09/07/25 23:33 38.0 C H 49 L 17 97 09/07/25 23:18 43 L 31 H 93 High Flow Nasal Cannula 09/07/25 23:09 38.1 C H 51 L 25 H 97 09/07/25 23:02 115/61 09/07/25 22:57 38.1 C H 51 L 28 H 96 09/07/25 22:48 38.1 C H 53 L 24 96 09/07/25 22:45 112/22 L 09/07/25 22:33 38.1 C H 49 L 20 95 09/07/25 22:15 38.1 C H 49 L 19 95 09/07/25 22:06 38.1 C H 58 L 26 H 93 09/07/25 21:51 38.1 C H 49 L 24 95 09/07/25 21:30 38.1 C H 49 L 24 95 09/07/25 21:04 93/29 L 09/07/25 21:03 37.9 C H 50 L 23 93 09/07/25 20:54 37.8 C H 55 L 29 H 90 09/07/25 20:33 37.5 C 49 L 28 H 09/07/25 20:15 37.4 C 54 L 25 H 09/07/25 20:09 37.3 C 56 L 34 H 85 L 09/07/25 20:02 114/23 L 09/07/25 20:00 High Flow Nasal Cannula 09/07/25 19:48 37.2 C 58 L 31 H 79 L 09/07/25 19:45 43 L 29 H 92 High Flow Nasal Cannula 09/07/25 19:39 37.0 C 58 L 24 82 L O2 Flow Rate FiO2 09/08/25 07:05 40 90 09/08/25 06:36 09/08/25 06:36 09/08/25 06:36 09/08/25 06:33 09/08/25 06:31 09/08/25 06:31 09/08/25 06:31 09/08/25 06:31 09/08/25 06:31 09/08/25 06:24 09/08/25 06:22 09/08/25 06:21 09/08/25 06:16 09/08/25 06:12 09/08/25 06:07 09/08/25 06:07 09/08/25 06:07 09/08/25 06:06 09/08/25 05:50 09/08/25 05:50 09/08/25 05:48 09/08/25 05:42 40 90 09/08/25 05:42 09/08/25 05:33 09/08/25 05:31 09/08/25 05:31 09/08/25 05:26 09/08/25 05:21 09/08/25 05:16 09/08/25 05:12 09/08/25 05:11 09/08/25 05:00 40 90 09/08/25 04:49 09/08/25 04:48 09/08/25 04:45 09/08/25 04:41 09/08/25 04:39 09/08/25 04:36 09/08/25 04:28 09/08/25 04:00 09/08/25 04:00 09/08/25 03:51 09/08/25 03:48 09/08/25 03:30 09/08/25 03:19 35 80 09/08/25 03:01 09/08/25 03:00 09/08/25 02:48 09/08/25 02:30 09/08/25 02:23 09/08/25 02:18 09/08/25 02:15 09/08/25 02:00 09/08/25 01:54 09/08/25 01:15 09/08/25 01:05 09/08/25 01:05 35 80 09/08/25 00:24 09/08/25 00:15 09/08/25 00:01 09/08/25 00:00 09/07/25 23:55 09/07/25 23:48 09/07/25 23:33 09/07/25 23:18 40 100 09/07/25 23:09 09/07/25 23:02 09/07/25 22:57 09/07/25 22:48 09/07/25 22:45 09/07/25 22:33 09/07/25 22:15 09/07/25 22:06 09/07/25 21:51 09/07/25 21:30 09/07/25 21:04 09/07/25 21:03 09/07/25 20:54 09/07/25 20:33 09/07/25 20:15 09/07/25 20:09 09/07/25 20:02 09/07/25 20:00 40 100 09/07/25 19:48 09/07/25 19:45 40 100 09/07/25 19:39 Laboratory Results 09/05/25 02:19 Aerobic Blood Culture - Preliminary Blood Listeria monocytogenes Anaerobic Blood Culture - Preliminary Listeria monocytogenes 09/06/25 19:50 Aerobic Blood Culture - Preliminary Blood No growth in Aerobic bottle after 24 hours. Anaerobic Blood Culture - Preliminary No growth in Anaerobic bottle after 24 hours. 09/06/25 19:50 Aerobic Blood Culture - Preliminary Blood No growth in Aerobic bottle after 24 hours. Anaerobic Blood Culture - Preliminary No growth in Anaerobic bottle after 24 hours. 09/08/25 09/08/25 09/08/25 12:34 11:29 08:55 WBC RBC Hgb POC Hgb Hct POC Hct MCV MCH MCHC RDW Std Deviation RDW Coeff of Amraa Plt Count MPV Absolute Nucleated RBC Nucleated RBC % (auto) PT INR APTT PTT Ratio Specimen Type Sample Site POC pH POC pCO2 POC pO2 POC HCO3 POC Total CO2 POC Base Excess O2 Sat Pulse Oximetry ABG pH (Temp Correct) ABG pCO2 (Temp Corrct POC ABG pO2 at Pt Temp POC ABG O2 Sat David Test O2 Delivery Device POC FiO2 POC Sodium Sodium POC Potassium Potassium Chloride Carbon Dioxide Anion Gap BUN Creatinine Est Cr Clr Drug Dosing eGFR BUN/Creatinine Ratio Glucose POC Glucose 160 H 146 H 106 H Calcium Phosphorus Magnesium Total Bilirubin Direct Bilirubin AST ALT Alkaline Phosphatase Total Protein Albumin Globulin Albumin/Globulin Ratio Procalcitonin Babesia microti DNA PCR 09/08/25 09/08/25 09/08/25 07:46 06:29 05:26 WBC RBC Hgb POC Hgb Hct POC Hct MCV MCH MCHC RDW Std Deviation RDW Coeff of Amara Plt Count MPV Absolute Nucleated RBC Nucleated RBC % (auto) PT INR APTT PTT Ratio Specimen Type Sample Site POC pH POC pCO2 POC pO2 POC HCO3 POC Total CO2 POC Base Excess O2 Sat Pulse Oximetry ABG pH (Temp Correct) ABG pCO2 (Temp Corrct POC ABG pO2 at Pt Temp POC ABG O2 Sat David Test O2 Delivery Device POC FiO2 POC Sodium Sodium POC Potassium Potassium Chloride Carbon Dioxide Anion Gap BUN Creatinine Est Cr Clr Drug Dosing eGFR BUN/Creatinine Ratio Glucose POC Glucose 107 H 111 H 100 H Calcium Phosphorus Magnesium Total Bilirubin Direct Bilirubin AST ALT Alkaline Phosphatase Total Protein Albumin Globulin Albumin/Globulin Ratio Procalcitonin Babesia microti DNA PCR 09/08/25 09/08/25 09/08/25 04:50 04:22 04:07 WBC 23.21 H RBC 2.84 L Hgb 7.2 L POC Hgb 7.5 L Hct 23.0 L POC Hct 22 L MCV 81.0 MCH 25.4 MCHC 31.3 L RDW Std Deviation 49.4 H RDW Coeff of Amara 17.2 H Plt Count 355 MPV 9.7 Absolute Nucleated RBC 0.09 Nucleated RBC % (auto) 0.4 PT 17.4 H INR 1.7 H APTT 33 H PTT Ratio 1.2 Specimen Type Arterial Sample Site R Radial POC pH 7.25 L POC pCO2 50 H POC pO2 68 L POC HCO3 22 POC Total CO2 23 L POC Base Excess -6.0 O2 Sat Pulse Oximetry 90 ABG pH (Temp Correct) 7.236 L ABG pCO2 (Temp Corrct 52 H POC ABG pO2 at Pt Temp 72 POC ABG O2 Sat 90.0 David Test Pass O2 Delivery Device Hi Walter Can POC FiO2 80 POC Sodium 128 L Sodium 131 L POC Potassium 4.7 Potassium 4.8 Chloride 94 L Carbon Dioxide 23 Anion Gap 14 H BUN 74 H Creatinine 2.78 H Est Cr Clr Drug Dosing 13.1 eGFR 16.59 BUN/Creatinine Ratio 26.6 H Glucose 88 POC Glucose 113 H Calcium 8.6 Phosphorus 9.5 H Magnesium 3.6 H Total Bilirubin Direct Bilirubin AST ALT Alkaline Phosphatase Total Protein Albumin Globulin Albumin/Globulin Ratio Procalcitonin 2.46 H Babesia microti DNA PCR 09/08/25 09/08/25 09/08/25 03:55 03:11 02:08 WBC RBC Hgb POC Hgb Hct POC Hct MCV MCH MCHC RDW Std Deviation RDW Coeff of Amara Plt Count MPV Absolute Nucleated RBC Nucleated RBC % (auto) PT INR APTT PTT Ratio Specimen Type Sample Site POC pH POC pCO2 POC pO2 POC HCO3 POC Total CO2 POC Base Excess O2 Sat Pulse Oximetry ABG pH (Temp Correct) ABG pCO2 (Temp Corrct POC ABG pO2 at Pt Temp POC ABG O2 Sat David Test O2 Delivery Device POC FiO2 POC Sodium Sodium POC Potassium Potassium Chloride Carbon Dioxide Anion Gap BUN Creatinine Est Cr Clr Drug Dosing eGFR BUN/Creatinine Ratio Glucose POC Glucose 68 L* 71 108 H Calcium Phosphorus Magnesium Total Bilirubin Direct Bilirubin AST ALT Alkaline Phosphatase Total Protein Albumin Globulin Albumin/Globulin Ratio Procalcitonin Babesia microti DNA PCR 09/08/25 09/08/25 09/08/25 01:56 01:50 01:48 WBC RBC Hgb POC Hgb Hct POC Hct MCV MCH MCHC RDW Std Deviation RDW Coeff of Amara Plt Count MPV Absolute Nucleated RBC Nucleated RBC % (auto) PT INR APTT PTT Ratio Specimen Type Sample Site POC pH POC pCO2 POC pO2 POC HCO3 POC Total CO2 POC Base Excess O2 Sat Pulse Oximetry ABG pH (Temp Correct) ABG pCO2 (Temp Corrct POC ABG pO2 at Pt Temp POC ABG O2 Sat David Test O2 Delivery Device POC FiO2 POC Sodium Sodium 132 L POC Potassium Potassium 5.0 D Chloride 95 L Carbon Dioxide 22 Anion Gap 15 H BUN 76 H Creatinine 2.79 H D Est Cr Clr Drug Dosing 13.1 eGFR 16.52 BUN/Creatinine Ratio 27.2 H Glucose 137 H POC Glucose 55 L* 54 L* Calcium 8.1 L Phosphorus Magnesium Total Bilirubin 0.8 Direct Bilirubin 0.4 H AST 102 H ALT 58 H Alkaline Phosphatase 416 H Total Protein 5.3 L Albumin 2.6 L Globulin Albumin/Globulin Ratio Procalcitonin Babesia microti DNA PCR 09/08/25 09/08/25 09/08/25 00:35 00:17 00:14 WBC RBC Hgb POC Hgb Hct POC Hct MCV MCH MCHC RDW Std Deviation RDW Coeff of Amara Plt Count MPV Absolute Nucleated RBC Nucleated RBC % (auto) PT INR APTT PTT Ratio Specimen Type Sample Site POC pH POC pCO2 POC pO2 POC HCO3 POC Total CO2 POC Base Excess O2 Sat Pulse Oximetry ABG pH (Temp Correct) ABG pCO2 (Temp Corrct POC ABG pO2 at Pt Temp POC ABG O2 Sat David Test O2 Delivery Device POC FiO2 POC Sodium Sodium POC Potassium Potassium Chloride Carbon Dioxide Anion Gap BUN Creatinine Est Cr Clr Drug Dosing eGFR BUN/Creatinine Ratio Glucose POC Glucose 182 H 42 L* 44 L* Calcium Phosphorus Magnesium Total Bilirubin Direct Bilirubin AST ALT Alkaline Phosphatase Total Protein Albumin Globulin Albumin/Globulin Ratio Procalcitonin Babesia microti DNA PCR 09/07/25 09/07/25 09/05/25 18:17 17:20 08:04 WBC RBC Hgb 7.1 L POC Hgb Hct 22.3 L POC Hct MCV MCH MCHC RDW Std Deviation RDW Coeff of Amara Plt Count MPV Absolute Nucleated RBC Nucleated RBC % (auto) PT INR APTT PTT Ratio Specimen Type Sample Site POC pH POC pCO2 POC pO2 POC HCO3 POC Total CO2 POC Base Excess O2 Sat Pulse Oximetry ABG pH (Temp Correct) ABG pCO2 (Temp Corrct POC ABG pO2 at Pt Temp POC ABG O2 Sat David Test O2 Delivery Device POC FiO2 POC Sodium Sodium 131 L POC Potassium Potassium 4.0 Chloride 95 L Carbon Dioxide 24 Anion Gap 12 H BUN 71 H Creatinine 2.36 H Est Cr Clr Drug Dosing 15.5 eGFR 20.20 BUN/Creatinine Ratio 30.1 H Glucose 138 H POC Glucose 126 H Calcium 8.3 L Phosphorus Magnesium Total Bilirubin 0.5 Direct Bilirubin AST 70 H ALT 50 Alkaline Phosphatase 336 H Total Protein 5.6 L Albumin 2.8 L Globulin 2.8 Albumin/Globulin Ratio 1.0 Procalcitonin Babesia microti DNA PCR Not Detected Diagnostic Findings Chest X-Ray 09/08/25 05:00 EXAM: XR chest 1V portable CLINICAL HISTORY: eval lung becker/effusions TECHNIQUE: An X-ray image of the chest was obtained in the AP projection. COMPARISON: 02:07:34 CRISIS THERAPIST FINDINGS: Ill-defined parenchymal opacities are noted involving right midzone - suggestive of pneumonic consolidation. Similar small patchy consolidations are also noted in left midzone. Blunting of bilateral costophrenic angles; more on right - suggest possibility of pleural effusion. Remaining lungs are clear. Cardiomegaly. Sternal sutures noted. No acute osseous abnormality. IMPRESSION: Ill-defined parenchymal opacities are noted involving right midzone - suggestive of pneumonic consolidation. Similar small patchy consolidations are also noted in left midzone.-new finding. Blunting of bilateral costophrenic angles; more on right - suggest possibility of pleural effusion. Remaining lungs are clear.-stable. Cardiomegaly.-stable. Sternal sutures noted. Electronically signed by [place] Ring 09-08-2025 07:19 AM Medications Administered Home Medications Medication Instructions Recorded Confirmed Last Taken acetaminophen 650 mg 1,300 mg PO QAM 09/05/25 09/05/25 Unknown tablet,extended release albuterol sulfate 90 mcg/actuation 2 puff inhalation Q4H PRN 09/05/25 09/05/25 Unknown aerosol inhaler (Ventolin HFA) Shortness Of Breath Or Wheezing amlodipine 10 mg tablet 10 mg PO DAILY 09/05/25 09/05/25 Unknown aspirin 81 mg tablet 81 mg PO DAILY 09/05/25 09/05/25 Unknown atorvastatin 10 mg tablet 10 mg PO DAILY 09/05/25 09/05/25 Unknown cholecalciferol (vitamin D3) 25 25 mcg PO DAILY 09/05/25 09/05/25 Unknown mcg (1,000 unit) tablet clonazepam 0.5 mg PO HS 09/05/25 09/05/25 Unknown clonazepam 0.5 mg tablet 0.5 mg PO HS 09/05/25 09/05/25 Unknown docusate sodium 100 mg capsule 100 mg PO BID 09/05/25 09/05/25 Unknown ondansetron HCl 4 mg tablet 0.4 mg PO Q8H PRN Nausea And 09/05/25 09/05/25 Unknown Vomiting varenicline tartrate 0.5 mg tablet 0.5 mg PO DIRECTED 09/05/25 09/05/25 Unknown Active Medications Generic Name Dose Route Start Last Admin Trade Name Freq PRN Reason Stop Dose Admin Albuterol 3 ml 09/05/25 00:34 09/07/25 07:52 Albut/Ipratrop 3mg/0.5mg Neb 3 Ml Vial NEB 10/05/25 00:33 3 ml Q2H PRN Administration dyspnea Protocol Hydromorphone HCl 0.5 mg 09/08/25 09:47 09/08/25 12:54 Hydromorphone Inj 0.5 Mg/0.5 Ml Syr IV 09/22/25 09:46 0.5 mg Q15M PRN Administration Pain, air-hunger Pantoprazole Sodium 40 mg in 10 mls @ 5 mls/min 09/05/25 09:00 09/08/25 11:13 Protonix IV 10/05/25 08:59 5 mls/min DAILY KRISTAN Administration Morphine Sulfate 2 mg 09/08/25 12:48 09/08/25 13:16 Morphine Sulfate 4 Mg/Ml 1 Ml Carp\Vial IV 09/22/25 12:47 2 mg Q2H PRN Administration Pain or Respiratory Distress Coding Level of Care Code 86232 CRITICAL CARE 1ST 30-74M Diagnoses Shock R57.9 Bradycardia R00.1 Hypoglycemia E16.2 CKD stage 3b, GFR 30-44 ml/min N18.32 Electrolyte abnormality E87.8 Time Spent (min) 55 Comment Critical Care Time independent of any time spent on separately-billable procedures.
[2025-09-08] MEDS: INFLUENZA VACC TS2025-26(65y+)/PF (IIV3) 0.5mL Syr IM ONE (07:52)
[2025-09-08] MEDS: HYDROmorphone INJ 0.5 MG/0.5 ML SYR IV STA (08:50)
--- NOTE | 2025-09-08 09:56 | Nephrology Progress Note ---
Date of Service September 08, 2025 Assessment & Plan (1) BRITTON (acute kidney injury): (2) Bacteremia: (3) Anemia: (4) Symptomatic bradycardia: Plan 80 year-old female admitted with altered mentation, severe bradycardia, shock, hypothermia, hypoglycemia, hyperkalemia, acute on chronic renal failure, and metabolic acidosis. Heart rate was <30 bpm and transcutaneous pacing initiated however heart rate remained low and tentative plan was to have permanent pacemaker placed this morning however clinically declined overnight. 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 Last few days became volume overloaded and received diuretics. Last night urine output dropped and started on Bumex drip but only made 100 mL since last night. Clinically having worsening volume overload and respiratory distress. Kidney function worsened current creatinine 2.9 with multiple electrolyte abnormality. --Appreciate ongoing discussion regarding goals of care as rapid clinical deterioration noted overnight with decreased urine output despite being on Bumex 3 and progressive worsening of kidney function and electrolyte abnormality. Unfortunately, I do not think there are replacement therapy would provide any significant quality of life and seems like family is leaning toward going into comfort care if no further clinical improvement which seems reasonable. -- Will be available if any further assistance needed. Admission and Anticipated Discharge Date Admission Date: September 05, 2025 Subjective Alesia was seen and evaluated this morning in ICU with Family at bedside. Clinically decline significantly overnight, remained hypotensive with some changes in mental status, volume overload, anuria and worsening kidney function and multiple electrolyte abnormality. Ongoing discussion with family about possibly transitioning to comfort care. Review of Systems Review of Systems: Detailed review of system was done, has been having respiratory distress and pain. Physical Exam Constitutional: WD/WN, vitals as above + acute distress and + ill appearing Respiratory: + respiratory distress Auscultation: + crackles Cardiovascular: Rate/Rhythm: regular rate and regular rhythm Extremities: no edema Neurologic: awake, alert Results & Data Vital Signs (Past 12 Hours) Vital Signs Temp Pulse Pulse Resp BP Pulse Ox O2 Del Method 09/08/25 09:06 37.9 C H 70 31 H 108/29 L 93 09/08/25 08:54 37.9 C H 85 33 H 93 09/08/25 08:46 119/43 L 09/08/25 08:30 117/31 L 09/08/25 08:27 38.0 C H 69 36 H 89 L 09/08/25 08:18 38.0 C H 93 H 32 H 91 09/08/25 08:16 92/51 L 09/08/25 08:16 92/51 L 09/08/25 08:16 92/51 L 09/08/25 08:01 114/33 L 09/08/25 08:01 114/33 L 09/08/25 08:01 114/33 L 09/08/25 08:00 86 09/08/25 07:57 38.0 C H 90 27 H 93 09/08/25 07:51 38.0 C H 85 29 H 92 09/08/25 07:46 90/63 L 09/08/25 07:39 38.0 C H 86 28 H 92 09/08/25 07:37 114/29 L 09/08/25 07:37 114/29 L 09/08/25 07:37 114/29 L 09/08/25 07:36 38.0 C H 60 23 93 09/08/25 07:33 38.0 C H 52 L 24 91 09/08/25 07:27 87/65 L 09/08/25 07:12 38.0 C H 88 24 91 09/08/25 07:11 98/39 L 09/08/25 07:06 114/27 L 09/08/25 07:06 38.0 C H 59 L 25 H 93 09/08/25 07:05 48 L 28 H 92 High Flow Nasal Cannula 09/08/25 07:01 118/33 L 09/08/25 07:00 38.0 C H 43 L 17 92 09/08/25 06:36 93/36 L 09/08/25 06:36 93/36 L 09/08/25 06:36 38.0 C H 88 21 92 09/08/25 06:33 38.0 C H 88 19 93 09/08/25 06:31 116/37 L 09/08/25 06:31 116/37 L 09/08/25 06:31 116/37 L 09/08/25 06:31 116/37 L 09/08/25 06:31 116/37 L 09/08/25 06:24 38.0 C H 93 H 26 H 92 10/27/25 06:22 103/36 L 09/08/25 06:21 38.1 C H 89 30 H 93 09/08/25 06:16 106/37 L 09/08/25 06:12 38.1 C H 89 19 92 09/08/25 06:07 110/34 L 09/08/25 06:07 110/34 L 09/08/25 06:07 110/34 L 09/08/25 06:06 38.1 C H 87 22 92 09/08/25 05:50 113/54 L 09/08/25 05:50 113/54 L 09/08/25 05:48 112/33 L 09/08/25 05:42 38.0 C H 82 34 H 93 High Flow Nasal Cannula 09/08/25 05:42 96/29 L 09/08/25 05:33 38.0 C H 84 16 95 09/08/25 05:31 109/25 L 09/08/25 05:31 109/25 L 09/08/25 05:26 113/28 L 09/08/25 05:21 38.0 C H 79 21 93 09/08/25 05:16 104/30 L 09/08/25 05:12 38.0 C H 85 18 95 09/08/25 05:11 99/32 L 09/08/25 05:00 38.0 C H 80 18 96 High Flow Nasal Cannula 09/08/25 04:49 92/27 L 09/08/25 04:48 37.9 C H 64 16 96 09/08/25 04:45 37.9 C H 68 14 96 09/08/25 04:41 108/24 L 09/08/25 04:39 37.9 C H 77 15 99 09/08/25 04:36 115/25 L 09/08/25 04:28 97/37 L 09/08/25 04:00 107/31 L 09/08/25 04:00 107/31 L 09/08/25 03:51 37.8 C H 40 L 14 88 L 09/08/25 03:48 37.8 C H 40 L 11 L 88 L 09/08/25 03:30 37.8 C H 47 L 22 90 09/08/25 03:19 56 L 28 H 91 High Flow Nasal Cannula 09/08/25 03:01 102/43 L 09/08/25 03:00 37.8 C H 54 L 20 93 09/08/25 02:48 37.8 C H 51 L 27 H 92 09/08/25 02:30 37.8 C H 51 L 24 92 09/08/25 02:23 92/49 L 09/08/25 02:18 37.8 C H 50 L 24 91 09/08/25 02:15 37.8 C H 49 L 22 93 09/08/25 02:00 37.8 C H 48 L 21 92 09/08/25 01:54 37.8 C H 51 L 24 92 09/08/25 01:15 37.9 C H 56 L 27 H 91 09/08/25 01:05 109/31 L 09/08/25 01:05 51 L 25 H 109/31 L 91 High Flow Nasal Cannula 09/08/25 00:24 37.9 C H 41 L 16 94 09/08/25 00:15 37.8 C H 50 L 15 99 09/08/25 00:01 108/32 L 09/08/25 00:00 37.4 C 50 L 19 98 09/07/25 23:55 52 L 09/07/25 23:48 35.2 C L 51 L 24 99 09/07/25 23:33 38.0 C H 49 L 17 97 09/07/25 23:18 43 L 31 H 93 High Flow Nasal Cannula 09/07/25 23:09 38.1 C H 51 L 25 H 97 09/07/25 23:02 115/61 09/07/25 22:57 38.1 C H 51 L 28 H 96 09/07/25 22:48 38.1 C H 53 L 24 96 09/07/25 22:45 112/22 L 09/07/25 22:33 38.1 C H 49 L 20 95 09/07/25 22:15 38.1 C H 49 L 19 95 09/07/25 22:06 38.1 C H 58 L 26 H 93 09/07/25 21:51 38.1 C H 49 L 24 95 O2 Flow Rate FiO2 09/08/25 09:06 09/08/25 08:54 09/08/25 08:46 09/08/25 08:30 09/08/25 08:27 09/08/25 08:18 09/08/25 08:16 09/08/25 08:16 09/08/25 08:16 09/08/25 08:01 09/08/25 08:01 09/08/25 08:01 09/08/25 08:00 09/08/25 07:57 09/08/25 07:51 09/08/25 07:46 09/08/25 07:39 09/08/25 07:37 09/08/25 07:37 09/08/25 07:37 09/08/25 07:36 09/08/25 07:33 09/08/25 07:27 09/08/25 07:12 09/08/25 07:11 09/08/25 07:06 09/08/25 07:06 09/08/25 07:05 40 90 09/08/25 07:01 09/08/25 07:00 09/08/25 06:36 09/08/25 06:36 09/08/25 06:36 09/08/25 06:33 09/08/25 06:31 09/08/25 06:31 09/08/25 06:31 09/08/25 06:31 09/08/25 06:31 09/08/25 06:24 09/08/25 06:22 09/08/25 06:21 09/08/25 06:16 09/08/25 06:12 09/08/25 06:07 09/08/25 06:07 09/08/25 06:07 09/08/25 06:06 09/08/25 05:50 09/08/25 05:50 09/08/25 05:48 09/08/25 05:42 40 90 09/08/25 05:42 09/08/25 05:33 09/08/25 05:31 09/08/25 05:31 09/08/25 05:26 09/08/25 05:21 09/08/25 05:16 09/08/25 05:12 09/08/25 05:11 09/08/25 05:00 40 90 09/08/25 04:49 09/08/25 04:48 09/08/25 04:45 09/08/25 04:41 09/08/25 04:39 09/08/25 04:36 09/08/25 04:28 09/08/25 04:00 09/08/25 04:00 09/08/25 03:51 09/08/25 03:48 09/08/25 03:30 09/08/25 03:19 35 80 09/08/25 03:01 09/08/25 03:00 09/08/25 02:48 09/08/25 02:30 09/08/25 02:23 09/08/25 02:18 09/08/25 02:15 09/08/25 02:00 09/08/25 01:54 09/08/25 01:15 09/08/25 01:05 09/08/25 01:05 35 80 09/08/25 00:24 09/08/25 00:15 09/08/25 00:01 09/08/25 00:00 09/07/25 23:55 09/07/25 23:48 09/07/25 23:33 09/07/25 23:18 40 100 09/07/25 23:09 09/07/25 23:02 09/07/25 22:57 09/07/25 22:48 09/07/25 22:45 09/07/25 22:33 09/07/25 22:15 09/07/25 22:06 09/07/25 21:51 PG Care Time/CCT Total # of Minutes Spent Total Time Spent with Patient: Total time spent is greater than 50% in coordination of care (as documented) at patient's floor/unit and/or counseling patient: Coding Level of Care Code 27765 SUB INP/OBS CARE 3/50MIN Diagnoses BRITTON (acute kidney injury) N17.9 Bacteremia R78.81 Anemia D64.9 Symptomatic bradycardia R00.1
[2025-09-08] MEDS: HYDROmorphone INJ 0.5 MG/0.5 ML SYR IV PRN ×2 (10:09→18:30)
--- NOTE | 2025-09-08 12:01 | Cardiology Progress Note ---
Date of Service September 08, 2025 Assessment & Plan (1) Complete heart block: (2) Junctional bradycardia: (3) Elevated troponin: (4) Tricuspid regurgitation: (5) HTN (hypertension): (6) S/P thoracic aortic aneurysm repair: Plan ASSESSMENT/PLAN: 1. Complete heart block and junctional bradycardia: She continues to have what appears to be junctional rhythm. Atrial rhythm difficult to determine. She had some improvement on isoproterenol yesterday, but over the course of the evening her clinical condition deteriorated and attempts were made to increase heart rate with dopamine. This was also ineffective. She was started on norepinephrine which did not increase the heart rate and transcutaneous pacing was employed. However, this fails to capture reliably and causes patient discomfort. This was also discontinued. An extensive discussion with the patient's family and the clinical staff regarding the option of a transcutaneous pacemaker. However, this would likely require some form of sedation. Her pulmonary status is quite tenuous at this point and she would likely need intubation to facilitate any procedures at this point. As such, we have elected to restart isoproterenol in the hopes of providing some heart rate support. 2. Elevated troponin: Likely due to demand ischemia as she was quite ill on presentation. No symptoms consistent with an acute coronary syndrome. 3. Tricuspid regurgitation: At least moderate on echo. Some images suggest t hat perhaps the tricuspid valve does not fully coapt during systole. This can certainly be contributing to her lower extremity edema. Can be followed in the outpatient setting. 4. Thoracic aortic aneurysm s/p repair: Details not well-known at the time of this note. Would avoid fluoroquinolones if able. 5. Hypertension: Normotensive currently. 6. Acute on chronic renal failure: Some decline in renal status with reduced urine output. Possibly an element of intravascular depletion. She had an initially good response to diuresis yesterday, but this resulted in some reduced renal function and did not improve her pulmonary status appreciably. Poor output currently despite efforts at inotropic infusion and more aggressive diuretic administration. 7. Hyperkalemia: Resolved. 8. Hypothermia: Resolved. 9. Pulmonary hypertension: Long history of tobacco abuse. Her most pressing issue currently appears to be her pulmonary status. X-ray today demonstrates significant abnormality primarily in the right lung field. Will consider this possible aspiration pneumonitis versus pneumonia or even ARDS. Family is considering options at this point. Will standby to provide what ever support can be given including temporary pacing should this be desired. Admission and Anticipated Discharge Date Admission Date: September 05, 2025 Subjective This morning the patient was quite fatigued and in respiratory distress. Review of Systems Review of Systems: Unobtainable due to reduced consciousness Physical Exam Physical Exam: Somnolent. In respiratory distress. HEENT: Eyes closed. Lungs: Decreased respiratory effort. Poor excursion and reduced breath sounds in both lung becker. No expiratory wheezing. Cardiac: The rhythm was regular but bradycardic . S1 and S2 were normal. There are no murmurs on examination. The PMI was not markedly displaced on palpation. Extremities: Patient has bilateral radial pulses that are equal in intensity. There is no evidence cyanosis or clubbing. Moderate lower extremity edema. Some dependent edema in the arms. Skin: There are no rashes noted on examination today. Results & Data Vital Signs (Past 12 Hours) Vital Signs Temp Pulse Pulse Resp BP Pulse Ox O2 Del Method 09/08/25 11:50 100 High Flow Nasal Cannula 09/08/25 11:33 100 High Flow Nasal Cannula 09/08/25 11:30 121/47 L 09/08/25 11:30 121/47 L 09/08/25 11:30 121/47 L 09/08/25 11:30 37.3 C 54 L 14 100 09/08/25 11:18 37.3 C 56 L 15 100 09/08/25 11:15 120/47 L 09/08/25 11:15 120/47 L 09/08/25 11:15 120/47 L 09/08/25 11:09 37.3 C 58 L 19 100 09/08/25 11:03 37.3 C 59 L 17 100 09/08/25 11:00 125/45 L 09/08/25 11:00 125/45 L 09/08/25 11:00 125/45 L 09/08/25 10:54 37.4 C 38 L 17 100 09/08/25 10:45 107/46 L 09/08/25 10:30 114/41 L 09/08/25 10:30 114/41 L 09/08/25 10:21 37.8 C H 71 34 H 100 09/08/25 10:15 37.8 C H 76 37 H 98 09/08/25 10:15 120/40 L 09/08/25 10:15 120/40 L 09/08/25 10:03 37.8 C H 69 33 H 94 09/08/25 10:01 109/31 L 09/08/25 09:54 37.8 C H 70 33 H 95 09/08/25 09:48 37.8 C H 75 34 H 95 09/08/25 09:33 37.8 C H 76 34 H 94 09/08/25 09:31 113/39 L 09/08/25 09:24 37.9 C H 70 31 H 96 09/08/25 09:19 High Flow Nasal Cannula 09/08/25 09:18 37.9 C H 67 26 H 95 09/08/25 09:16 114/32 L 09/08/25 09:09 108/29 L 09/08/25 09:06 37.9 C H 70 31 H 108/29 L 93 09/08/25 08:54 37.9 C H 85 33 H 93 09/08/25 08:46 119/43 L 09/08/25 08:30 117/31 L 09/08/25 08:27 38.0 C H 69 36 H 89 L 09/08/25 08:18 38.0 C H 93 H 32 H 91 09/08/25 08:16 92/51 L 09/08/25 08:16 92/51 L 09/08/25 08:16 92/51 L 09/08/25 08:01 114/33 L 09/08/25 08:01 114/33 L 09/08/25 08:01 114/33 L 09/08/25 08:00 86 09/08/25 07:57 38.0 C H 90 27 H 93 09/08/25 07:51 38.0 C H 85 29 H 92 09/08/25 07:46 90/63 L 09/08/25 07:39 38.0 C H 86 28 H 92 09/08/25 07:37 114/29 L 09/08/25 07:37 114/29 L 09/08/25 07:37 114/29 L 09/08/25 07:36 38.0 C H 60 23 93 09/08/25 07:33 38.0 C H 52 L 24 91 09/08/25 07:27 87/65 L 09/08/25 07:12 38.0 C H 88 24 91 09/08/25 07:11 98/39 L 09/08/25 07:06 114/27 L 09/08/25 07:06 38.0 C H 59 L 25 H 93 09/08/25 07:05 48 L 28 H 92 High Flow Nasal Cannula 09/08/25 07:01 118/33 L 09/08/25 07:00 38.0 C H 43 L 17 92 09/08/25 06:36 93/36 L 09/08/25 06:36 93/36 L 09/08/25 06:36 38.0 C H 88 21 92 09/08/25 06:33 38.0 C H 88 19 93 09/08/25 06:31 116/37 L 09/08/25 06:31 116/37 L 09/08/25 06:31 116/37 L 09/08/25 06:31 116/37 L 09/08/25 06:31 116/37 L 09/08/25 06:24 38.0 C H 93 H 26 H 92 09/08/25 06:22 103/36 L 09/08/25 06:21 38.1 C H 89 30 H 93 09/08/25 06:16 106/37 L 09/08/25 06:12 38.1 C H 89 19 92 09/08/25 06:07 110/34 L 09/08/25 06:07 110/34 L 09/08/25 06:07 110/34 L 09/08/25 06:06 38.1 C H 87 22 92 09/08/25 05:50 113/54 L 09/08/25 05:50 113/54 L 09/08/25 05:48 112/33 L 09/08/25 05:42 38.0 C H 82 34 H 93 High Flow Nasal Cannula 09/08/25 05:42 96/29 L 09/08/25 05:33 38.0 C H 84 16 95 09/08/25 05:31 109/25 L 09/08/25 05:31 109/25 L 09/08/25 05:26 113/28 L 09/08/25 05:21 38.0 C H 79 21 93 09/08/25 05:16 104/30 L 09/08/25 05:12 38.0 C H 85 18 95 09/08/25 05:11 99/32 L 09/08/25 05:00 38.0 C H 80 18 96 High Flow Nasal Cannula 09/08/25 04:49 92/27 L 09/08/25 04:48 37.9 C H 64 16 96 09/08/25 04:45 37.9 C H 68 14 96 09/08/25 04:41 108/24 L 09/08/25 04:39 37.9 C H 77 15 99 09/08/25 04:36 115/25 L 09/08/25 04:28 97/37 L 09/08/25 04:00 107/31 L 09/08/25 04:00 107/31 L 09/08/25 03:51 37.8 C H 40 L 14 88 L 09/08/25 03:48 37.8 C H 40 L 11 L 88 L 09/08/25 03:30 37.8 C H 47 L 22 90 09/08/25 03:19 56 L 28 H 91 High Flow Nasal Cannula 09/08/25 03:01 102/43 L 09/08/25 03:00 37.8 C H 54 L 20 93 09/08/25 02:48 37.8 C H 51 L 27 H 92 09/08/25 02:30 37.8 C H 51 L 24 92 09/08/25 02:23 92/49 L 09/08/25 02:18 37.8 C H 50 L 24 91 09/08/25 02:15 37.8 C H 49 L 22 93 09/08/25 02:00 37.8 C H 48 L 21 92 09/08/25 01:54 37.8 C H 51 L 24 92 09/08/25 01:15 37.9 C H 56 L 27 H 91 09/08/25 01:05 109/31 L 09/08/25 01:05 51 L 25 H 109/31 L 91 High Flow Nasal Cannula 09/08/25 00:24 37.9 C H 41 L 16 94 09/08/25 00:15 37.8 C H 50 L 15 99 09/08/25 00:01 108/32 L 09/08/25 00:00 37.4 C 50 L 19 98 O2 Flow Rate FiO2 09/08/25 11:50 40 80 09/08/25 11:33 40 90 09/08/25 11:30 09/08/25 11:30 09/08/25 11:30 09/08/25 11:30 09/08/25 11:18 09/08/25 11:15 09/08/25 11:15 09/08/25 11:15 09/08/25 11:09 09/08/25 11:03 09/08/25 11:00 09/08/25 11:00 09/08/25 11:00 09/08/25 10:54 09/08/25 10:45 09/08/25 10:30 09/08/25 10:30 09/08/25 10:21 09/08/25 10:15 09/08/25 10:15 09/08/25 10:15 09/08/25 10:03 09/08/25 10:01 09/08/25 09:54 09/08/25 09:48 09/08/25 09:33 09/08/25 09:31 09/08/25 09:24 09/08/25 09:19 50 100 09/08/25 09:18 09/08/25 09:16 09/08/25 09:09 09/08/25 09:06 09/08/25 08:54 09/08/25 08:46 09/08/25 08:30 09/08/25 08:27 09/08/25 08:18 09/08/25 08:16 09/08/25 08:16 09/08/25 08:16 09/08/25 08:01 09/08/25 08:01 09/08/25 08:01 09/08/25 08:00 09/08/25 07:57 09/08/25 07:51 09/08/25 07:46 09/08/25 07:39 09/08/25 07:37 09/08/25 07:37 09/08/25 07:37 09/08/25 07:36 09/08/25 07:33 09/08/25 07:27 09/08/25 07:12 09/08/25 07:11 09/08/25 07:06 09/08/25 07:06 09/08/25 07:05 40 90 09/08/25 07:01 09/08/25 07:00 09/08/25 06:36 09/08/25 06:36 09/08/25 06:36 09/08/25 06:33 09/08/25 06:31 09/08/25 06:31 09/08/25 06:31 09/08/25 06:31 09/08/25 06:31 09/08/25 06:24 09/08/25 06:22 09/08/25 06:21 09/08/25 06:16 09/08/25 06:12 09/08/25 06:07 09/08/25 06:07 09/08/25 06:07 09/08/25 06:06 09/08/25 05:50 09/08/25 05:50 09/08/25 05:48 09/08/25 05:42 40 90 09/08/25 05:42 09/08/25 05:33 09/08/25 05:31 09/08/25 05:31 09/08/25 05:26 09/08/25 05:21 09/08/25 05:16 09/08/25 05:12 09/08/25 05:11 09/08/25 05:00 40 90 09/08/25 04:49 09/08/25 04:48 09/08/25 04:45 09/08/25 04:41 09/08/25 04:39 09/08/25 04:36 09/08/25 04:28 09/08/25 04:00 09/08/25 04:00 09/08/25 03:51 09/08/25 03:48 09/08/25 03:30 09/08/25 03:19 35 80 09/08/25 03:01 09/08/25 03:00 09/08/25 02:48 09/08/25 02:30 09/08/25 02:23 09/08/25 02:18 09/08/25 02:15 09/08/25 02:00 09/08/25 01:54 09/08/25 01:15 09/08/25 01:05 09/08/25 01:05 35 80 09/08/25 00:24 09/08/25 00:15 09/08/25 00:01 09/08/25 00:00 Laboratory Results Abnormal Lab Results 09/05/25 09/07/25 09/07/25 08:04 12:37 17:20 WBC RBC Hgb 7.1 L POC Hgb Hct 22.3 L POC Hct MCV MCH MCHC RDW Std Deviation RDW Coeff of Amara Plt Count MPV Absolute Nucleated RBC Nucleated RBC % (auto) PT INR APTT PTT Ratio Specimen Type Sample Site POC pH POC pCO2 POC pO2 POC HCO3 POC Total CO2 POC Base Excess O2 Sat Pulse Oximetry ABG pH (Temp Correct) ABG pCO2 (Temp Corrct POC ABG pO2 at Pt Temp POC ABG O2 Sat David Test O2 Delivery Device POC FiO2 POC Sodium Sodium 131 L POC Potassium Potassium 4.0 Chloride 95 L Carbon Dioxide 24 Anion Gap 12 H BUN 71 H Creatinine 2.36 H Est Cr Clr Drug Dosing 15.5 eGFR 20.20 BUN/Creatinine Ratio 30.1 H Glucose 138 H POC Glucose 140 H Calcium 8.3 L Phosphorus Magnesium Total Bilirubin 0.5 Direct Bilirubin AST 70 H ALT 50 Alkaline Phosphatase 336 H Total Protein 5.6 L Albumin 2.8 L Globulin 2.8 Albumin/Globulin Ratio 1.0 Procalcitonin Babesia microti DNA PCR Not Detected 09/07/25 09/08/25 09/08/25 18:17 00:14 00:17 WBC RBC Hgb POC Hgb Hct POC Hct MCV MCH MCHC RDW Std Deviation RDW Coeff of Amara Plt Count MPV Absolute Nucleated RBC Nucleated RBC % (auto) PT INR APTT PTT Ratio Specimen Type Sample Site POC pH POC pCO2 POC pO2 POC HCO3 POC Total CO2 POC Base Excess O2 Sat Pulse Oximetry ABG pH (Temp Correct) ABG pCO2 (Temp Corrct POC ABG pO2 at Pt Temp POC ABG O2 Sat David Test O2 Delivery Device POC FiO2 POC Sodium Sodium POC Potassium Potassium Chloride Carbon Dioxide Anion Gap BUN Creatinine Est Cr Clr Drug Dosing eGFR BUN/Creatinine Ratio Glucose POC Glucose 126 H 44 L* 42 L* Calcium Phosphorus Magnesium Total Bilirubin Direct Bilirubin AST ALT Alkaline Phosphatase Total Protein Albumin Globulin Albumin/Globulin Ratio Procalcitonin Babesia microti DNA PCR 09/08/25 09/08/25 09/08/25 00:35 01:48 01:50 WBC RBC Hgb POC Hgb Hct POC Hct MCV MCH MCHC RDW Std Deviation RDW Coeff of Amara Plt Count MPV Absolute Nucleated RBC Nucleated RBC % (auto) PT INR APTT PTT Ratio Specimen Type Sample Site POC pH POC pCO2 POC pO2 POC HCO3 POC Total CO2 POC Base Excess O2 Sat Pulse Oximetry ABG pH (Temp Correct) ABG pCO2 (Temp Corrct POC ABG pO2 at Pt Temp POC ABG O2 Sat David Test O2 Delivery Device POC FiO2 POC Sodium Sodium POC Potassium Potassium Chloride Carbon Dioxide Anion Gap BUN Creatinine Est Cr Clr Drug Dosing eGFR BUN/Creatinine Ratio Glucose POC Glucose 182 H 54 L* 55 L* Calcium Phosphorus Magnesium Total Bilirubin Direct Bilirubin AST ALT Alkaline Phosphatase Total Protein Albumin Globulin Albumin/Globulin Ratio Procalcitonin Babesia microti DNA PCR 09/08/25 09/08/25 09/08/25 01:56 02:08 03:11 WBC RBC Hgb POC Hgb Hct POC Hct MCV MCH MCHC RDW Std Deviation RDW Coeff of Amara Plt Count MPV Absolute Nucleated RBC Nucleated RBC % (auto) PT INR APTT PTT Ratio Specimen Type Sample Site POC pH POC pCO2 POC pO2 POC HCO3 POC Total CO2 POC Base Excess O2 Sat Pulse Oximetry ABG pH (Temp Correct) ABG pCO2 (Temp Corrct POC ABG pO2 at Pt Temp POC ABG O2 Sat David Test O2 Delivery Device POC FiO2 POC Sodium Sodium 132 L POC Potassium Potassium 5.0 D Chloride 95 L Carbon Dioxide 22 Anion Gap 15 H BUN 76 H Creatinine 2.79 H D Est Cr Clr Drug Dosing 13.1 eGFR 16.52 BUN/Creatinine Ratio 27.2 H Glucose 137 H POC Glucose 108 H 71 Calcium 8.1 L Phosphorus Magnesium Total Bilirubin 0.8 Direct Bilirubin 0.4 H AST 102 H ALT 58 H Alkaline Phosphatase 416 H Total Protein 5.3 L Albumin 2.6 L Globulin Albumin/Globulin Ratio Procalcitonin Babesia microti DNA PCR 09/08/25 09/08/25 09/08/25 03:55 04:07 04:22 WBC RBC Hgb POC Hgb 7.5 L Hct POC Hct 22 L MCV MCH MCHC RDW Std Deviation RDW Coeff of Amara Plt Count MPV Absolute Nucleated RBC Nucleated RBC % (auto) PT INR APTT PTT Ratio Specimen Type Arterial Sample Site R Radial POC pH 7.25 L POC pCO2 50 H POC pO2 68 L POC HCO3 22 POC Total CO2 23 L POC Base Excess -6.0 O2 Sat Pulse Oximetry 90 ABG pH (Temp Correct) 7.236 L ABG pCO2 (Temp Corrct 52 H POC ABG pO2 at Pt Temp 72 POC ABG O2 Sat 90.0 David Test Pass O2 Delivery Device Hi Walter Can POC FiO2 80 POC Sodium 128 L Sodium POC Potassium 4.7 Potassium Chloride Carbon Dioxide Anion Gap BUN Creatinine Est Cr Clr Drug Dosing eGFR BUN/Creatinine Ratio Glucose POC Glucose 68 L* 113 H Calcium Phosphorus Magnesium Total Bilirubin Direct Bilirubin AST ALT Alkaline Phosphatase Total Protein Albumin Globulin Albumin/Globulin Ratio Procalcitonin Babesia microti DNA PCR 09/08/25 09/08/25 09/08/25 04:50 05:26 06:29 WBC 23.21 H RBC 2.84 L Hgb 7.2 L POC Hgb Hct 23.0 L POC Hct MCV 81.0 MCH 25.4 MCHC 31.3 L RDW Std Deviation 49.4 H RDW Coeff of Amara 17.2 H Plt Count 355 MPV 9.7 Absolute Nucleated RBC 0.09 Nucleated RBC % (auto) 0.4 PT 17.4 H INR 1.7 H APTT 33 H PTT Ratio 1.2 Specimen Type Sample Site POC pH POC pCO2 POC pO2 POC HCO3 POC Total CO2 POC Base Excess O2 Sat Pulse Oximetry ABG pH (Temp Correct) ABG pCO2 (Temp Corrct POC ABG pO2 at Pt Temp POC ABG O2 Sat David Test O2 Delivery Device POC FiO2 POC Sodium Sodium 131 L POC Potassium Potassium 4.8 Chloride 94 L Carbon Dioxide 23 Anion Gap 14 H BUN 74 H Creatinine 2.78 H Est Cr Clr Drug Dosing 13.1 eGFR 16.59 BUN/Creatinine Ratio 26.6 H Glucose 88 POC Glucose 100 H 111 H Calcium 8.6 Phosphorus 9.5 H Magnesium 3.6 H Total Bilirubin Direct Bilirubin AST ALT Alkaline Phosphatase Total Protein Albumin Globulin Albumin/Globulin Ratio Procalcitonin 2.46 H Babesia microti DNA PCR 09/08/25 09/08/25 09/08/25 07:46 08:55 11:29 WBC RBC Hgb POC Hgb Hct POC Hct MCV MCH MCHC RDW Std Deviation RDW Coeff of Amara Plt Count MPV Absolute Nucleated RBC Nucleated RBC % (auto) PT INR APTT PTT Ratio Specimen Type Sample Site POC pH POC pCO2 POC pO2 POC HCO3 POC Total CO2 POC Base Excess O2 Sat Pulse Oximetry ABG pH (Temp Correct) ABG pCO2 (Temp Corrct POC ABG pO2 at Pt Temp POC ABG O2 Sat David Test O2 Delivery Device POC FiO2 POC Sodium Sodium POC Potassium Potassium Chloride Carbon Dioxide Anion Gap BUN Creatinine Est Cr Clr Drug Dosing eGFR BUN/Creatinine Ratio Glucose POC Glucose 107 H 106 H 146 H Calcium Phosphorus Magnesium Total Bilirubin Direct Bilirubin AST ALT Alkaline Phosphatase Total Protein Albumin Globulin Albumin/Globulin Ratio Procalcitonin Babesia microti DNA PCR PG Care Time/CCT Total # of Minutes Spent Total Time Spent with Patient: Total time spent is greater than 50% in coordination of care (as documented) at patient's floor/unit and/or counseling patient: Coding Level of Care Code 22368 SUB INP/OBS CARE 3/50MIN Diagnoses Complete heart block I44.2 Junctional bradycardia R00.1 Elevated troponin R79.89 Tricuspid regurgitation I07.1 HTN (hypertension) I10 S/P thoracic aortic aneurysm repair Z98.890; Z86.79
--- NOTE | 2025-09-08 12:02 | Hospitalist Progress Note ---
Date of Service September 08, 2025 Assessment & Plan (1) Shock: (2) Bradycardia: (3) Hypothermia: (4) Elevated troponin: (5) Metabolic acidosis: Plan The patient is a 80-year-old female who follows with physicians at [facility]. 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 Records have been requested through [facility], and will be addressed when they arrive. The patient herself was not able to contribute to HPI or review of systems due to acute physical and mental state. The patient presented to the emergency department with altered mentation, severe bradycardia, hypothermia, hypoglycemia, several electrolyte disturbances, metabolic acidosis, and COPD exacerbation. Her heart rate was in the 20s upon arrival, which point she was immediately externally paced and started on Levophed infusion by the ED, while waiting for laboratory evaluation to return. Blood pressure upon arrival was 70s/50s, and temperature was 31.7. Patient was placed on Andrew hugger. Correction of laboratory abnormalities left to the ICU consult team saw the filippo ent in the ED. She was transcutaneous paced with capture at 40 N/A, at a rate of 70. Laboratories revealed a bicarb of 12, potassium 6.4, gap 23, magnesium 4.6. She was given 1 L crystalloid, 1 amp of bicarb, 1 g calcium gluconate, 1 g of calcium chloride. She was given 250 mL of D10. She received an additional amp of bicarbonate 50 mill equivalents 8.4%, then started on a bicarb infusion and dextrose at 175 mL/h. She received another liter of normal saline. Patient had improvement in heart rate to the 80-90s, and systolic blood pressure up to 120. She was transferred to the ICU with further treatment to be performed there. 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 - initially on zosyn / Dapto - BCx: growing listeria in 02/14, will repeat BCx - cont ampicillin, bactrim on hold, requested ID eval #CAD #AVR #Thoracic aortic aneurysm - s/p repair - cont aspirin #Anion gap metabolic acidosis #Hyperkalemia - resolved #BRITTON on CKD #Hypervolemia - Cr: 1.39 (07/18/25) - worsening Cr due to shock, trending up, Na trending down - diuretic initiated with isoproterenol support , diuretic support transitioned to bumex gtt - nephro recs appreciated #Acute respiratory failure with hypoxia - due to volume - CXR: b/l patchy opacification, mainly RLL, possible pulmonary edema vs infectious process, mild cardiomegaly - diuresis ongoing - wean HFNC as tolerated - ICU support appreciated #Acute metabolic encephalopathy - pt's daughter stated that pt gets confused easily with increased stress - in the setting of bradycardia, hypotension, hypoxia, uremia - currently requiring soft mitts - cont supportive care #Poor appetite - will request RD to eval #HTN - home meds: amlodipine - currently on hold #COPD #h/o lung ca s/o RML wedge resection - cont duoneb prn #HLD - atorvastatin #GERD - cont ppi #Hypothermia - on admission T: 31.7C - s/p andrew hugger, Temp much improved DVT ppx - heparin subq Dispo- pending clinical improvement 09/07: spoke with pt's daughter George ([phone]) 09/08: pt's daughter George at bedside Admission and Anticipated Discharge Date Admission Date: September 05, 2025 Subjective Pt had significant decline overnight. Reduced urine output overnight becoming hypotensive and worsening hypoxia with increased work of breathing. Per ICU discussion with family, decision was made appropriately to not pursue intubation as she was high risk for cardiopulmonary arrest. Additionally, she would not have be able to come off ventilatory support. From renal perspective, she will not benefit significantly given tenuous cardiopulmonary status. She had signi ficant respiratory distress which settled with administration of dilaudid. Family currently leaning towards comfort care. Review of Systems Review of Systems: unable to obtain ROS due to mentation Physical Exam Physical Exam: Gen: no acute distress, lying in bed comfortable HEENT: NC/AT, MMM Lungs: nonlabored breathing (was labored earlier), coarse breath sounds anteriorly CVS: s1s2nl, RRR Abd: nl bowel sounds, soft, NT / ND : + díaz Ext: diffuse edema Neuro: lethargic and not responsive Psych: more calm Results & Data Results & Data Vital Signs (Past 12 Hours) Vital Signs Temp Pulse Pulse Resp BP Pulse Ox O2 Del Method 09/08/25 11:50 100 High Flow Nasal Cannula 09/08/25 11:33 100 High Flow Nasal Cannula 09/08/25 11:30 121/47 L 09/08/25 11:30 121/47 L 09/08/25 11:30 121/47 L 09/08/25 11:30 37.3 C 54 L 14 100 09/08/25 11:18 37.3 C 56 L 15 100 09/08/25 11:15 120/47 L 09/08/25 11:15 120/47 L 09/08/25 11:15 120/47 L 09/08/25 11:09 37.3 C 58 L 19 100 09/08/25 11:03 37.3 C 59 L 17 100 09/08/25 11:00 125/45 L 09/08/25 11:00 125/45 L 09/08/25 11:00 125/45 L 09/08/25 10:54 37.4 C 38 L 17 100 09/08/25 10:45 107/46 L 09/08/25 10:30 114/41 L 09/08/25 10:30 114/41 L 09/08/25 10:21 37.8 C H 71 34 H 100 09/08/25 10:15 37.8 C H 76 37 H 98 09/08/25 10:15 120/40 L 09/08/25 10:15 120/40 L 09/08/25 10:03 37.8 C H 69 33 H 94 09/08/25 10:01 109/31 L 09/08/25 09:54 37.8 C H 70 33 H 95 09/08/25 09:48 37.8 C H 75 34 H 95 09/08/25 09:33 37.8 C H 76 34 H 94 09/08/25 09:31 113/39 L 09/08/25 09:24 37.9 C H 70 31 H 96 09/08/25 09:19 High Flow Nasal Cannula 09/08/25 09:18 37.9 C H 67 26 H 95 09/08/25 09:16 114/32 L 09/08/25 09:09 108/29 L 09/08/25 09:06 37.9 C H 70 31 H 108/29 L 93 09/08/25 08:54 37.9 C H 85 33 H 93 09/08/25 08:46 119/43 L 09/08/25 08:30 117/31 L 09/08/25 08:27 38.0 C H 69 36 H 89 L 09/08/25 08:18 38.0 C H 93 H 32 H 91 09/08/25 08:16 92/51 L 09/08/25 08:16 92/51 L 09/08/25 08:16 92/51 L 09/08/25 08:01 114/33 L 09/08/25 08:01 114/33 L 09/08/25 08:01 114/33 L 09/08/25 08:00 86 09/08/25 07:57 38.0 C H 90 27 H 93 09/08/25 07:51 38.0 C H 85 29 H 92 09/08/25 07:46 90/63 L 09/08/25 07:39 38.0 C H 86 28 H 92 09/08/25 07:37 114/29 L 09/08/25 07:37 114/29 L 09/08/25 07:37 114/29 L 09/08/25 07:36 38.0 C H 60 23 93 09/08/25 07:33 38.0 C H 52 L 24 91 09/08/25 07:27 87/65 L 09/08/25 07:12 38.0 C H 88 24 91 09/08/25 07:11 98/39 L 09/08/25 07:06 114/27 L 09/08/25 07:06 38.0 C H 59 L 25 H 93 09/08/25 07:05 48 L 28 H 92 High Flow Nasal Cannula 09/08/25 07:01 118/33 L 09/08/25 07:00 38.0 C H 43 L 17 92 09/08/25 06:36 93/36 L 09/08/25 06:36 93/36 L 09/08/25 06:36 38.0 C H 88 21 92 09/08/25 06:33 38.0 C H 88 19 93 09/08/25 06:31 116/37 L 09/08/25 06:31 116/37 L 09/08/25 06:31 116/37 L 09/08/25 06:31 116/37 L 09/08/25 06:31 116/37 L 09/08/25 06:24 38.0 C H 93 H 26 H 92 09/08/25 06:22 103/36 L 09/08/25 06:21 38.1 C H 89 30 H 93 09/08/25 06:16 106/37 L 09/08/25 06:12 38.1 C H 89 19 92 09/08/25 06:07 110/34 L 09/08/25 06:07 110/34 L 09/08/25 06:07 110/34 L 09/08/25 06:06 38.1 C H 87 22 92 09/08/25 05:50 113/54 L 09/08/25 05:50 113/54 L 09/08/25 05:48 112/33 L 09/08/25 05:42 38.0 C H 82 34 H 93 High Flow Nasal Cannula 09/08/25 05:42 96/29 L 09/08/25 05:33 38.0 C H 84 16 95 09/08/25 05:31 109/25 L 09/08/25 05:31 109/25 L 09/08/25 05:26 113/28 L 09/08/25 05:21 38.0 C H 79 21 93 09/08/25 05:16 104/30 L 09/08/25 05:12 38.0 C H 85 18 95 09/08/25 05:11 99/32 L 09/08/25 05:00 38.0 C H 80 18 96 High Flow Nasal Cannula 09/08/25 04:49 92/27 L 09/08/25 04:48 37.9 C H 64 16 96 09/08/25 04:45 37.9 C H 68 14 96 09/08/25 04:41 108/24 L 09/08/25 04:39 37.9 C H 77 15 99 09/08/25 04:36 115/25 L 09/08/25 04:28 97/37 L 09/08/25 04:00 107/31 L 09/08/25 04:00 107/31 L 09/08/25 03:51 37.8 C H 40 L 14 88 L 09/08/25 03:48 37.8 C H 40 L 11 L 88 L 09/08/25 03:30 37.8 C H 47 L 22 90 09/08/25 03:19 56 L 28 H 91 High Flow Nasal Cannula 09/08/25 03:01 102/43 L 09/08/25 03:00 37.8 C H 54 L 20 93 09/08/25 02:48 37.8 C H 51 L 27 H 92 09/08/25 02:30 37.8 C H 51 L 24 92 09/08/25 02:23 92/49 L 09/08/25 02:18 37.8 C H 50 L 24 91 09/08/25 02:15 37.8 C H 49 L 22 93 09/08/25 02:00 37.8 C H 48 L 21 92 09/08/25 01:54 37.8 C H 51 L 24 92 09/08/25 01:15 37.9 C H 56 L 27 H 91 09/08/25 01:05 109/31 L 09/08/25 01:05 51 L 25 H 109/31 L 91 High Flow Nasal Cannula 09/08/25 00:24 37.9 C H 41 L 16 94 09/08/25 00:15 37.8 C H 50 L 15 99 09/08/25 00:01 108/32 L 09/08/25 00:00 37.4 C 50 L 19 98 09/07/25 23:55 52 L O2 Flow Rate FiO2 09/08/25 11:50 40 80 09/08/25 11:33 40 90 09/08/25 11:30 09/08/25 11:30 09/08/25 11:30 09/08/25 11:30 09/08/25 11:18 09/08/25 11:15 09/08/25 11:15 09/08/25 11:15 09/08/25 11:09 09/08/25 11:03 09/08/25 11:00 09/08/25 11:00 09/08/25 11:00 09/08/25 10:54 09/08/25 10:45 09/08/25 10:30 09/08/25 10:30 09/08/25 10:21 09/08/25 10:15 09/08/25 10:15 09/08/25 10:15 09/08/25 10:03 09/08/25 10:01 09/08/25 09:54 09/08/25 09:48 09/08/25 09:33 09/08/25 09:31 09/08/25 09:24 09/08/25 09:19 50 100 09/08/25 09:18 09/08/25 09:16 09/08/25 09:09 09/08/25 09:06 09/08/25 08:54 09/08/25 08:46 09/08/25 08:30 09/08/25 08:27 09/08/25 08:18 09/08/25 08:16 09/08/25 08:16 09/08/25 08:16 09/08/25 08:01 09/08/25 08:01 09/08/25 08:01 09/08/25 08:00 09/08/25 07:57 09/08/25 07:51 09/08/25 07:46 09/08/25 07:39 09/08/25 07:37 09/08/25 07:37 09/08/25 07:37 09/08/25 07:36 09/08/25 07:33 09/08/25 07:27 09/08/25 07:12 09/08/25 07:11 09/08/25 07:06 09/08/25 07:06 09/08/25 07:05 40 90 09/08/25 07:01 09/08/25 07:00 09/08/25 06:36 09/08/25 06:36 09/08/25 06:36 09/08/25 06:33 09/08/25 06:31 09/08/25 06:31 09/08/25 06:31 09/08/25 06:31 09/08/25 06:31 09/08/25 06:24 09/08/25 06:22 09/08/25 06:21 09/08/25 06:16 09/08/25 06:12 09/08/25 06:07 09/08/25 06:07 09/08/25 06:07 09/08/25 06:06 09/08/25 05:50 09/08/25 05:50 09/08/25 05:48 09/08/25 05:42 40 90 09/08/25 05:42 09/08/25 05:33 09/08/25 05:31 09/08/25 05:31 09/08/25 05:26 09/08/25 05:21 09/08/25 05:16 09/08/25 05:12 09/08/25 05:11 09/08/25 05:00 40 90 09/08/25 04:49 09/08/25 04:48 09/08/25 04:45 09/08/25 04:41 09/08/25 04:39 09/08/25 04:36 09/08/25 04:28 09/08/25 04:00 09/08/25 04:00 09/08/25 03:51 09/08/25 03:48 09/08/25 03:30 09/08/25 03:19 35 80 09/08/25 03:01 09/08/25 03:00 09/08/25 02:48 09/08/25 02:30 09/08/25 02:23 09/08/25 02:18 09/08/25 02:15 09/08/25 02:00 09/08/25 01:54 09/08/25 01:15 09/08/25 01:05 09/08/25 01:05 35 80 09/08/25 00:24 09/08/25 00:15 09/08/25 00:01 09/08/25 00:00 09/07/25 23:55 PG Care Time/CCT Total # of Minutes Spent Total Time Spent with Patient: Total time spent is greater than 50% in coordination of care (as documented) at patient's floor/unit and/or counseling patient: Coding Level of Care Code 52627 SUB INP/OBS CARE 2/35MIN Diagnoses Shock R57.9 Bradycardia R00.1 Hypothermia T68.XXXA Elevated troponin R79.89 Metabolic acidosis E87.20
[2025-09-08] MEDS ORDERED: ONDANSETRON INJ 2 MG/ML 2 ML VIAL IV PRN (12:48)
[2025-09-08] MEDS ORDERED: LORazepam Inj 0.5 MG in SYRINGE 0.25 ML IV PRN (12:48)
[2025-09-08] MEDS: MoRPHine SULFATE 4 MG/ML 1 ML CARP\\VIAL IV PRN (13:16)
[2025-09-08] MEDS: GLYCOPYRROLATE 0.2 MG/ML VIAL IV SCH (15:29)
[2025-09-08] MEDS: LORazepam Inj 0.5 MG in SYRINGE 0.25 ML IV PRN (19:10)
[2025-09-08] MEDS ORDERED: AMPICILLIN 2,000 MG in SODIUM CHLOR 0.9% MINI-B 100 ML IV SCH (20:00)
[2025-09-09] MEDS: ATROPINE SULFATE 1% OP SOLN 5 ML BTL SL PRN (06:02)
--- NOTE | 2025-09-09 14:07 | Hospitalist Progress Note ---
Date of Service September 09, 2025 Assessment & Plan (1) Shock: (2) Bradycardia: (3) Hypothermia: (4) Elevated troponin: (5) Metabolic acidosis: Plan The patient is a 80-year-old female who follows with physicians at [facility]. 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 Records have been requested through [facility], and will be addressed when they arrive. The patient herself was not able to contribute to HPI or review of systems due to acute physical and mental state. The patient presented to the emergency department with altered mentation, severe bradycardia, hypothermia, hypoglycemia, several electrolyte disturbances, metabolic acidosis, and COPD exacerbation. Her heart rate was in the 20s upon arrival, which point she was immediately externally paced and started on Levophed infusion by the ED, while waiting for laboratory evaluation to return. Blood pressure upon arrival was 70s/50s, and temperature was 31.7. Patient was placed on Nunu hugger. Correction of laboratory abnormalities left to the ICU consult team saw the filippo ent in the ED. She was transcutaneous paced with capture at 40 N/A, at a rate of 70. Laboratories revealed a bicarb of 12, potassium 6.4, gap 23, magnesium 4.6. She was given 1 L crystalloid, 1 amp of bicarb, 1 g calcium gluconate, 1 g of calcium chloride. She was given 250 mL of D10. She received an additional amp of bicarbonate 50 mill equivalents 8.4%, then started on a bicarb infusion and dextrose at 175 mL/h. She received another liter of normal saline. Patient had improvement in heart rate to the 80-90s, and systolic blood pressure up to 120. She was transferred to the ICU with further treatment to be performed there. Pt was initially managed with fluids, pressors, external pacing for bradycardia, shock, and sepsis. Her hyperkalemia and shock resolved. Bradycardia persisted without significant BP fluctuations. Unfortunately, renal function continued to decline with increasing volume status. Pt was started on isoproterenol and diuresis with initial improvement. However, pt then had a rapid decline with no urine output. Pt was switched to dopamine and levophed with bumex drip, no significant improvement noted. She was again switched back to Isoproterenol. ICU team discussed with family regarding rapid decline including need for intubation. 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 Admission and Anticipated Discharge Date Admission Date: September 05, 2025 Subjective Pt transitioned to comfort measures. Has required 5 doses of IV dilaudid since 630p - 12p as well as 3 doses of Lorazepam. Review of Systems Review of Systems: unable to obtain ROS due to mentation Physical Exam Physical Exam: Gen: increased WOB HEENT: NC/AT, dry MM Lungs: labored breathing, coarse breath sounds CVS: s1s2nl, RRR Abd: diminished bowel sounds, soft : + díaz Ext: diffuse edema Neuro: lethargic and not responsive Psych: calm PG Care Time/CCT Total # of Minutes Spent Total Time Spent with Patient: Total time spent is greater than 50% in coordination of care (as documented) at patient's floor/unit and/or counseling patient: Coding Level of Care Code 17702 SUB INP/OBS CARE 3/50MIN Diagnoses Shock R57.9 Bradycardia R00.1 Hypothermia T68.XXXA Elevated troponin R79.89 Metabolic acidosis E87.20
--- NOTE | 2025-09-09 18:47 | Death Pronouncement Note ---
Date of Service September 09, 2025 Notified by RN that pt has ceased to breathe Evaluated pt at bedside Pt not responding to name Eyes: pupils dilated fixed CVS: no heart sounds, no palpable pulse Lungs: no lung sounds, no chest wall movement Pronounced at 1725 on 09/09/25 Pt's daughter George at bedside Pt's Avtar joined later during the visit. Pronouncement Note Admission Date September 05, 2025 Date and Time of Date of : 09/09/25 Time of : 17:25 Preliminary Cause of (1) Listeria septicemia: Additional Comments: Listeria Bacteremia Additional Data Attending physician: Chaya Plata MD
--- NOTE | 2025-09-09 18:48 | Discharge Summary ---
Discharge Summary Date of Service September 09, 2025 Principal Dx & Hospital Course #1 = Principal Diagnosis (1) Listeria septicemia: Plan The patient is a 80-year-old female who follows with physicians at [facility]. 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 Records have been requested through [facility], and will be addressed when they arrive. The patient herself was not able to contribute to HPI or review of systems due to acute physical and mental state. The patient presented to the emergency department with altered mentation, severe bradycardia, hypothermia, hypoglycemia, several electrolyte disturbances, metabolic acidosis, and COPD exacerbation. Her heart rate was in the 20s upon arrival, which point she was immediately externally paced and started on Levophed infusion by the ED, while waiting for laboratory evaluation to return. Blood pressure upon arrival was 70s/50s, and temperature was 31.7. Patient was placed on Nunu hugger. Correction of laboratory abnormalities left to the ICU consult team saw the patient in the ED. She was transcutaneous paced with capture at 40 N/A, at a rate of 70. Laboratories revealed a bicarb of 12, potassium 6.4, gap 23, magnesium 4.6. She was given 1 L crystalloid, 1 amp of bicarb, 1 g calcium gluconate, 1 g of calcium chloride. She was given 250 mL of D10. She received an additional amp of bicarbonate 50 mill equivalents 8.4%, then started on a bicarb infusion and dextrose at 175 mL/h. She received another liter of normal saline. Patient had improvement in heart rate to the 80-90s, and systolic blood pressure up to 120. She was transferred to the ICU with further treatment to be performed there. Pt was initially managed with fluids, pressors, external pacing for bradycardia, shock, and sepsis. Her hyperkalemia and shock resolved. Bradycardia persisted without significant BP fluctuations. Unfortunately, renal function continued to decline with increasing volume status. Pt was started on isoproterenol and diuresis with initial improvement. However, pt then had a rapid decline with no urine output. Pt was switched to dopamine and levophed with bumex drip, no significant improvement noted. She was again switched back to Isoproterenol. ICU team discussed with family regarding rapid decline including need for intubation. However, family wanted to pursue comfort measures and patient was transitioned to focus on comfort on 09/08/25. Pt was pronounced on 09/09/25 at 1725. 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 Pt's daughter at bedside Admission HPI Per Admitting Provider The patient is a 80-year-old female who follows with physicians at [facility]. 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 Records have been requested through [facility], and will be addressed when they arrive. The patient herself was not able to contribute to HPI or review of systems due to acute physical and mental state. The patient presented to the emergency department with altered mentation, severe bradycardia, hypothermia, hypoglycemia, several electrolyte disturbances, metabolic acidosis, and COPD exacerbation. Her heart rate was in the 20s upon arrival, which point she was immediately externally paced and started on Levophed infusion by the ED, while waiting for laboratory evaluation to return. Blood pressure upon arrival was 70s/50s, and temperature was 31.7. Patient was placed on Nunu hugger. Correction of laboratory abnormalities left to the ICU consult team saw the patient in the ED. She was transcutaneous paced with capture at 40 N/A, at a rate of 70. Laboratories revealed a bicarb of 12, potassium 6.4, gap 23, magnesium 4.6. She was given 1 L crystalloid, 1 amp of bicarb, 1 g calcium gluconate, 1 g of calcium chloride. She was given 250 mL of D10. She received an additional amp of bicarbonate 50 mill equivalents 8.4%, then started on a bicarb infusion and dextrose at 175 mL/h. She received another liter of normal saline. Patient had improvement in heart rate to the 80-90s, and systolic blood pressure up to 120. She was transferred to the ICU with further treatment to be performed there. Discharge Exam see note Discharge Plan Discharge Items Patient Disposition: Other Date/Time: 09/09/25 17:25 Hospital Stay Data Consultations 09/05/25 00:29 ED Decision to Admit Stat 09/05/25 01:25 Consult Banner Painter Routine 09/05/25 02:20 Consult Cardiology Routine 09/07/25 08:00 Consult Nephrology Routine Procedures Performed Operation Date: 09/08/25 10:00 <No data on this case meets the specified criteria> Diagnostic Imagining Performed 09/08/25 07:15 EP Lab Images for PACS ONCE Total Time Total Time Spent Total Time Spent (In Minutes): 35 Coding Level of Care Code 55130 INP/OBS DISCH >30 MIN Diagnoses Listeria septicemia A32.7
--- NOTE | 2025-09-09 18:57 | Communication Note ---
Date of Service: September 09, 2025 Note completed
== END 2025-09-09 20:27 | disposition expired | DRG 871 ==
LOC: ED 22:44 → 1E 09-05 00:48 → SUATTDRO 09-05 00:48 → 1E 09-05 01:36 → 3E 09-08 18:23